=== PATIENT | male | born 1955 | race Caucasian/White ===

== ENCOUNTER 2018-03-30 06:31 | Day surgery (SDC) | payer OTHER ==
--- OUTSIDE RECORDS SUMMARY | 2018-03-30 06:33 | XMS REPORT ---
:1955 Author Organization eClinicalWorks Care Team Providers Name Role Phone Oliveira, [facility] Provider Role Unavailable Allergies, Adverse Reactions, Alerts Substance Reaction Event Type Benadryl Runny nose, sneezing Drug Allergy Problems Problem Type Condition Code Onset Dates Condition Status Problem Gout M10.9 Active Problem Hypertension I10 Active Problem Atrial fibrillation I48.91 Active Problem Proteinuria, unspecified type R80.9 Active Problem Controlled type 2 diabetes mellitus E11.9 Active without complication, without long-term current use of insulin Problem Abnormal laboratory test result R89.9 Active Problem Hyperlipidemia E78.5 Active Problem Allergic rhinitis J30.9 Active Problem Prostatic hypertrophy N40.0 Active Problem GERD without esophagitis K21.9 Active Assessment Hyperlipidemia E78.5 Active Assessment Gout M10.9 Active Assessment Prostatic hypertrophy N40.0 Active Assessment Atrial fibrillation I48.91 Active Assessment Controlled type 2 diabetes mellitus E11.9 Active without complication, without long-term current use of insulin Assessment Proteinuria, unspecified type R80.9 Active Assessment Hypertension I10 Active Problem Chronic back pain M54.9 Active Medications Medication Code Code Instructions Start End Status Dosage System Date Date Digoxin [facility] 57501873940 125 MCG Orally Active 1 tablet Once a day Flomax [facility] 35771561997 0.4 MG Orally Inactive 1 capsule Once a day Allopurinol [facility] 78306924796 300 MG Orally Active 1 tablet Once a day Fish Oil [facility] [address]-11 Active not defined Glimepiride [facility] 59095852043 2 MG Active TAKE 1 TABLET BY MOUTH EVERY DAY Allopurinol [facility] 04740133643 300 MG Orally Active 1 tablet Once a day Coreg [facility] 21951862912 6.25 MG Orally Active 1 tab twice daily Warfarin [facility] 75358069574 6 MG Orally Active 1 tablet Sodium Once a day Prostate [facility] [address]8559-45117 Active not defined Health CoQ-10 [facility] 00[address]-18628 Active not defined Carvedilol [facility] 62576160289 6.25 MG Active TAKE 1 TABLET BY MOUTH 2 TIMES A DAY Metformin HCl NDC 67250815548 500 MG Active TAKE 1 TABLET BY MOUTH 2 TIMES A DAY Glimepiride [facility] 69438451576 2 MG Orally Active 1 tablet Once a day with breakfast or the first main meal of the day Vitamin E [facility] 560[address]-38136 Active not defined Zestoretic [facility] 53050372793 20-12.5 MG Active 2 tablets Orally Once a day Lipitor [facility] 72999291409 20 MG Orally Active 1 tablet Once a day Metformin HCl [facility] 71980690442 500 MG Orally Active 1 tablet Twice a day with meals Results No Known Results Summary Purpose eClinicalWorks Submission
--- OUTSIDE RECORDS SUMMARY | 2018-03-30 06:33 | XMS REPORT ---
:1955 Author Organization eClinicalWorks Care Team Providers Name Role Phone Oliveira, [facility] Provider Role Unavailable Allergies, Adverse Reactions, Alerts [...] Start End Status Dosage System Date Date Glimepiride [facility] 52536665344 2 MG Orally Active 1 tablet Once a day with breakfast or the first main meal of the day Metformin HCl ND 32819619351 500 MG Orally Active 1 tablet Twice a day with meals Zestoretic [facility] 31773214503 20-12.5 MG Active 2 tablets Orally Once a day Metformin HCl [facility] 25104732214 500 MG Active TAKE 1 TABLET BY MOUTH 2 TIMES A DAY Glimepiride ND 71361676036 2 MG Active TAKE 1 TABLET BY MOUTH EVERY DAY Carvedilol [facility] 14648750958 6.25 MG Active TAKE 1 TABLET BY MOUTH 2 TIMES A DAY Digoxin [facility] 09274509628 125 MCG Orally Active 1 tablet Once a day Warfarin ND 73572691010 6 MG Orally Active 1 tablet Sodium Once a day CoQ-10 [facility] [address]-46255 Active not defined Prostate [facility] 56936-61895 Active not defined Health Lipitor [facility] 45301127953 20 MG Orally Active 1 tablet Once a day Allopurinol [facility] 50883547762 300 MG Orally Active 1 tablet Once a day Coreg [facility] 70020912159 6.25 MG Orally Active 1 tab twice daily Fish Oil [facility] [address]-44 Active not defined Flomax [facility] 34862430704 0.4 MG Orally Inactive 1 capsule Once a day Vitamin E [facility] 46950-[address] Active not defined Results No Known Results Summary Purpose eClinicalWorks Submission
[2018-03-30] MEDS ORDERED: Ringers Lactate 1,000 ML IV ONE (06:49)
[2018-03-30 06:56] LABS: Protime INR 1.23
[2018-03-30] MEDS: PHENYLEPHRINE 10% OPTH 5ML ONE ×3 (07:00→07:30)
[2018-03-30] MEDS: KETOROLAC OPTHALMIC 5 ML BOT ONE ×3 (07:00→07:30)
[2018-03-30] MEDS: TROPICAMIDE 1% OPTH 3 ML BOT ONE ×3 (07:00→07:30)
[2018-03-30] MEDS: CYCLOPENTOLATE 2% OPTH 2 ML ONE ×3 (07:00→07:30)
[2018-03-30] MEDS: MOXIFLOXACIN HCL 0.5% 3ML OPTH OPTH ONE ×3 (07:00→07:30)
[2018-03-30] MEDS ORDERED: TETRACAINE HCL 0.5% 2ML OPTH ONE (07:04)
[2018-03-30] MEDS ORDERED: BUPIVACAINE 0.25% PF 10 ML VIAL ONE (07:04)
[2018-03-30] MEDS ORDERED: LIDOCAINE 2% MPF 5 ML VIAL ONE ×2 (07:04→07:55)
[2018-03-30] MEDS ORDERED: CYCLOPENTOLATE 1% OPTH 2 ML ONE (07:04)
[2018-03-30] MEDS ORDERED: POVIDONE-IODINE 5% EYE DROPS ONE (07:45)
[2018-03-30] MEDS ORDERED: TOBRADEX 0.3-0.1% OPTH OINTMENT ONE (07:45)
[2018-03-30] MEDS ORDERED: EPINEPHRINE/PF 1 MG/ML AMP ONE (07:46)
[2018-03-30] MEDS ORDERED: BALANCED SALT IRRIG PLAIN 500 ML BTL IRR ONE (07:46)
[2018-03-30] MEDS ORDERED: DUOVISC 1 KIT OPTH ONE (07:47)
[2018-03-30] MEDS ORDERED: PROPOFOL 200 MG/20 ML VIAL IV ONE (07:55)
[2018-03-30] MEDS ORDERED: MIDAZOLAM HCL 2 MG/2 ML INJ ONE (07:55)
[2018-03-30] MEDS ORDERED: FENTANYL CITR 100 MCG/2 ML ONE (08:21)
[2018-03-30] MEDS ORDERED: ONDANSETRON 4 MG/2 ML VIAL ONE (08:41)
--- NOTE | 2018-03-30 11:31 | OP ---
Date of Procedure: 03/30/2018 Surgeon: Po Mejia MD Preoperative Diagnosis: Visually significant cataract, right eye. Postoperative Diagnosis: Visually significant cataract, right eye. Procedure Performed: Cataract extraction right eye with placement of intraocular lens, right eye. Description Of Procedure: After being properly identified in the preoperative holding area, the corine ent was taken back to the operating room where a time-out was performed. The patient was then preppe d and draped in normal sterile fashion. A lid speculum was placed and a paracentesis wound was made in both the 12 o'clock and 6 o'clock position and the anterior chamber filled with dispersive viscoel astic. Then grasping the globe with a pair of 0.12 forceps, the main phaco incision wound was made u sing a 2.75 mm keratome temporally. A continuous curvilinear capsulorrhexis was created using a cyst otome and completed with Utrata forceps. Hydrodissection, hydrodelineation were carried out using a Burton cannula resulting in free rotation of the lens nucleus. Thereafter, the lens was removed in a standard divide and conquer technique with CDE of approximately 6.42. Once all 4 quadrants had been removed, the phaco handpiece was exchanged for bimanual irrigation aspiration handpieces and the resi dual cortex was removed. The capsular bag was then filled with cohesive viscoelastic and an Emiliano mo del SN60WF, power 17.0 diopter, serial #[id number] was implanted into the capsular bag. The viscoel astic was then removed with a single coaxial I and A handpiece and oriented to the haptics, when in t he horizontal position. The wounds were hydrated and tested and found to be watertight. At this poi nt, the procedure concluded. There were no complications. Estimated blood loss less than 1 mL. No specimens were sent or drains placed. Implant is as above. The patient was taken to the postoperati ve holding area in stable condition having tolerated the procedure well. He is to follow up with myself Dr. Po Mejia at the [facility] [place] tomorrow morning. JPG/MODL Voice ID: [id number] Report ID: [id number]
== END 2018-03-30 10:04 | disposition home or self-care (01) ==
LOC: OR 06:31
PROVIDERS: ATTEND Ophthalmology
PROC: 08RJ3JZ Replacement of Right Lens with Synthetic Substitute, Percutaneous Approach (ICD-10-PCS; principal; 2018-03-30 07:30)
DX: H26.8 Other specified cataract (principal); E11.9 Type 2 diabetes mellitus without complications; I10 Essential (primary) hypertension; I48.2 Chronic atrial fibrillation
CPT/HCPCS: 36415; 82962; 85610; J0171; J2250; J2405; J2704; J3010

== ENCOUNTER 2018-07-28 06:32 | Day surgery (SDC) | payer OTHER ==
[2018-07-27 17:22] LABS: Absolute Lymphocytes (CBC) 1.7 K/uL (0.7-4.9); Absolute Monocytes 1.5 K/uL (0.1-1.3); Absolute Neutrophil 6.3 K/uL (1.8-8.0); Basophils % 0.5 % (0-1.3); Eosinophils % 0.3 % (0-4.4); Hematocrit 40.5 % (39.6-49.0); Lymphocytes % 17.8 % (15.3-44.8); MPV 8.3 fL (7.6-11.3); Monocytes % 15.7 % (3.3-12.3); RBC Red Blood Cell Count 4.52 M/uL (4.33-5.43)
[2018-07-27 17:26] LABS: Protime INR 1.94
--- NOTE | 2018-07-27 17:31 | RAD REPORT ---
EXAM DESCRIPTION: RAD - Chest Pa And Lat (2 Views) - 07/27/2018 5:19 pm CLINICAL HISTORY: Preop chest, pending carotid surgery or stenting COMPARISON: None. TECHNIQUE: PA and lateral views of the chest were obtained. FINDINGS: The lungs are clear. Heart size is normal and central vasculature is within normal limit s. No pleural effusion or pneumothorax seen. No acute bony finding noted. No aortic abnormality. IMPRESSION: No acute cardiopulmonary process.
[2018-07-27 17:36] LABS: Potassium 4.4 mmol/L (3.5-5.1)
[2018-07-27 18:08] LABS: Blood Morphology Comment NOT SEEN (NOT SEEN); Platelet Estimate ADEQ; Urine White Blood Cell Casts OK
--- OUTSIDE RECORDS SUMMARY | 2018-07-28 06:33 | XMS REPORT ---
:1955 Author Organization eClinicalWorks Care Team Providers Name Role Phone Oliveira, [facility] Provider Role Unavailable Allergies, Adverse Reactions, Alerts [...] Date Date Glimepiride [facility] 91692960966 2 MG Orally Active 1 tablet Once a day with breakfast or the first main meal of the day Metformin HCl ND 05776997480 500 MG Orally Active 1 tablet Twice a day with meals Zestoretic [facility] 92094319723 20-12.5 MG Active 2 tablets Orally Once a day Metformin HCl [facility] 01316824428 500 MG Active TAKE 1 TABLET BY MOUTH 2 TIMES A DAY Glimepiride ND 24096988075 2 MG Active TAKE 1 TABLET BY MOUTH EVERY DAY Carvedilol [facility] 10095586330 6.25 MG Active TAKE 1 TABLET BY MOUTH 2 TIMES A DAY Digoxin [facility] 74878800193 125 MCG Orally Active 1 tablet Once a day Warfarin [place] 32632986523 6 MG Orally Active 1 tablet Sodium Once a day CoQ-10 [facility] [address]23-23729 Active not defined Prostate [facility] 7[address]-81447 Active not defined Health Lipitor [facility] 92393656765 20 MG Orally Active 1 tablet Once a day Allopurinol [facility] 27981753351 300 MG Orally Active 1 tablet Once a day Coreg [facility] 00840324239 6.25 MG Orally Active 1 tab twice daily Fish Oil [facility] [address]-59 Active not defined Flomax [facility] 86598555865 0.4 MG Orally Inactive 1 capsule Once a day Vitamin E [facility] [address] Active not defined Results No Known Results Summary Purpose eClinicalWorks Submission
--- OUTSIDE RECORDS SUMMARY | 2018-07-28 06:34 | XMS REPORT ---
:1955 Author Organization eClinicalWorks Care Team Providers Name Role Phone Oliveira, [facility] Provider Role Unavailable Allergies, Adverse Reactions, [...] End Status Dosage System Date Date Digoxin [facility] 68803478962 125 MCG Orally Active 1 tablet Once a day Flomax [facility] 80483414786 0.4 MG Orally Inactive 1 capsule Once a day Allopurinol [facility] 85256044262 300 MG Orally Active 1 tablet Once a day Fish Oil [facility] [address]-76 Active not defined Glimepiride [facility] 01960265959 2 MG Active TAKE 1 TABLET BY MOUTH EVERY DAY Allopurinol [facility] 25551387262 300 MG Orally Active 1 tablet Once a day Coreg [facility] 53935476059 6.25 MG Orally Active 1 tab twice daily Warfarin [facility] 77070700745 6 MG Orally Active 1 tablet Sodium Once a day Prostate [facility] 8[address]-81124 Active not defined Health CoQ-10 [facility] 16464-27941 Active not defined Carvedilol [facility] 52472796552 6.25 MG Active TAKE 1 TABLET BY MOUTH 2 TIMES A DAY Metformin HCl NDC 98148400174 500 MG Active TAKE 1 TABLET BY MOUTH 2 TIMES A DAY Glimepiride [facility] 15069000665 2 MG Orally Active 1 tablet Once a day with breakfast or the first main meal of the day Vitamin E [facility] 24726-43832 Active not defined Zestoretic [facility] 12749301607 20-12.5 MG Active 2 tablets Orally Once a day Lipitor [facility] 79031523394 20 MG Orally Active 1 tablet Once a day Metformin HCl [facility] 86465134557 500 MG Orally Active 1 tablet Twice a day with meals Results No Known Results Summary Purpose eClinicalWorks Submission
--- OUTSIDE RECORDS SUMMARY | 2018-07-28 06:34 | XMS REPORT ---
:1955 Author Organization eClinicalWorks Care Team Providers Name Role Phone Oliveira, [facility] Provider Role Unavailable Allergies, Adverse Reactions, Alerts Substance Reaction Event Type Benadryl Runny nose, sneezing Drug Allergy Problems Problem Type Condition Code Onset Dates Condition Status Problem Gout M10.9 Active Problem Hypertension I10 Active Problem Atrial fibrillation I48.91 Active Problem Proteinuria, unspecified type R80.9 Active Assessment Renal insufficiency N28.9 Active Problem Controlled type 2 diabetes mellitus E11.9 Active without complication, without long-term current use of insulin Assessment GERD without esophagitis K21.9 Active Problem Abnormal laboratory test result R89.9 Active Problem Hyperlipidemia E78.5 Active Problem Allergic rhinitis J30.9 Active Problem Prostatic hypertrophy N40.0 Active Problem GERD without esophagitis K21.9 Active Assessment Hyperlipidemia E78.5 Active Assessment Gout M10.9 Active Assessment Elevated total protein R77.8 Active Assessment Prostatic hypertrophy N40.0 Active Assessment Atrial fibrillation I48.91 Active Assessment Controlled type 2 diabetes mellitus E11.9 Active without complication, without long-term current use of insulin Assessment Proteinuria, unspecified type R80.9 Active Assessment Hypertension I10 Active Problem Chronic back pain M54.9 Active Medications Medication Code Code Instructions Start End Status Dosage System Date Date Warfarin [facility] 86181949275 6 MG Orally Active 1 tablet Sodium Once a day Coreg [facility] 74210135758 6.25 MG Orally Active 1 tab twice daily Protonix [facility] 60512652415 40 MG Orally March Active 1 tablet Once a day 2018 Prostate [facility] [address]2223-47973 Active not defined Health Glimepiride [facility] 54820268360 2 MG Active TAKE 1 TABLET BY MOUTH EVERY DAY CoQ-10 [facility] 059[address]-60130 Active not defined Digoxin [facility] 23412135143 125 MCG Orally Active 1 tablet Once a day Metformin HCl [facility] 27717222558 500 MG Orally Active 1 tablet Twice a day with meals Vitamin E ND 0 Active not defined Allopurinol [facility] 91183806159 300 MG Orally Active 1 tablet Once a day Allopurinol [facility] 46832941253 300 MG Orally Active 1 tablet Once a day Lipitor [facility] 91626885274 20 MG Orally Active 1 tablet Once a day Fish Oil [facility] [address]-89 Active not defined Glimepiride [facility] 02301867670 2 MG Orally Active 1 tablet Once a day with breakfast or the first main meal of the day Metformin HCl [facility] 27388698505 500 MG Active TAKE 1 TABLET BY MOUTH 2 TIMES A DAY Zestoretic [facility] 48803947952 20-12.5 MG Active 2 tablets Orally Once a day Carvedilol [facility] 26431146699 6.25 MG Active TAKE 1 TABLET BY MOUTH 2 TIMES A DAY Results No Known Results Summary Purpose eClinicalWorks Submission
--- OUTSIDE RECORDS SUMMARY | 2018-07-28 06:34 | XMS REPORT ---
:1955 Author Organization eClinicalWorks Care Team Providers Name Role Phone Oliveira, [facility] Provider Role Unavailable Allergies, Adverse Reactions, Alerts [...] Start End Status Dosage System Date Date Carvedilol [facility] 23397500871 6.25 MG Active TAKE 1 TABLET BY MOUTH 2 TIMES A DAY Zestoretic [facility] 40316907873 20-12.5 MG Active 2 tablets Orally Once a day Fish Oil [facility] [address]-25 Active not defined Metformin HCl [facility] 58907455912 500 MG Orally Active 1 tablet Twice a day with meals Metformin HCl [facility] 80781524888 500 MG Active TAKE 1 TABLET BY MOUTH 2 TIMES A DAY CoQ-10 [facility] 82708-[address]22 Active not defined Warfarin [facility] 14632424624 6 MG Orally Active 1 tablet Sodium Once a day Digoxin [facility] 22689528520 125 MCG Orally Active 1 tablet Once a day Allopurinol [facility] 22720367209 300 MG Orally Active 1 tablet Once a day Lipitor [facility] 99064703315 20 MG Orally Active 1 tablet Once a day Prostate [facility] 29246-19038 Active not defined Health Glimepiride [facility] 67909499537 2 MG Orally Active 1 tablet Once a day with breakfast or the first main meal of the day Vitamin E [facility] 43[address]-53110 Active not defined Coreg [facility] 15409299353 6.25 MG Orally Active 1 tab twice daily Allopurinol [facility] 99270547466 300 MG Orally Active 1 tablet Once a day Glimepiride [facility] 04614417109 2 MG Active TAKE 1 TABLET BY MOUTH EVERY DAY Results No Known Results Summary Purpose eClinicalWorks Submission
[2018-07-28] MEDS ORDERED: LIDOCAINE 1% MPF 30 ML VIAL ONE (06:52)
[2018-07-28] MEDS ORDERED: HEPA 1000U/500MLS 2,000 UNIT/1,000 ML BAG IV ONE (06:52)
[2018-07-28] MEDS ORDERED: NA CHLORIDE 0.9% 0 ML ONE (07:04)
[2018-07-28] MEDS ORDERED: HEPARIN 5000 UNIT/ML 1 ML VIAL ONE (07:36)
[2018-07-28] MEDS ORDERED: ATROPINE SULF 1 MG/10 ML SYR IV ONE (07:37)
[2018-07-28] MEDS ORDERED: NICARDIPINE HCL 25 MG/10 ML IV ONE (07:37)
[2018-07-28] MEDS ORDERED: NA CHLORIDE 0.9% 50 ML ONE (07:37)
[2018-07-28] MEDS ORDERED: NITROGLYCERIN/D5W 25 MG/250 ML BTL IV ONE (07:37)
[2018-07-28] MEDS ORDERED: NITROGLYCERIN 100 MCG/ML SYR (for cath lab use only) IV ONE (07:37)
[2018-07-28] MEDS ORDERED: MIDAZOLAM HCL 2 MG/2 ML INJ ONE (07:37)
[2018-07-28] MEDS ORDERED: FENTANYL CITR 100 MCG/2 ML ONE (07:37)
[2018-07-28] MEDS ORDERED: NA CHLORIDE 0.9% 500 ML ONE (08:23)
[2018-07-28] MEDS ORDERED: PRASUGREL (EFFIENT) 10 MG TAB ONE (08:27)
[2018-07-28] MEDS ORDERED: ASPIRIN 81 MG CHEWABLE TABLET ONE (08:27)
[2018-07-28] MEDS ORDERED: GLUCAGON 1 MG/VIAL IM PRN (08:37)
[2018-07-28] MEDS ORDERED: D50W 25 GM/50 ML SYRINGE IV PRN (08:37)
[2018-07-28] MEDS: DIGOXIN 0.125 MG TABLET PO SCH (09:00)
[2018-07-28] MEDS: CLOPIDOGREL 75 MG TABLET PO SCH (09:00)
[2018-07-28] MEDS: LISINOPRIL 20 MG TAB PO SCH (09:00)
[2018-07-28] MEDS: CARVEDILOL 6.25 MG TAB PO SCH ×2 (09:00→21:28)
[2018-07-28] MEDS: hydroCHLOROthiazide 12.5 MG CAP PO SCH (09:00)
[2018-07-28] MEDS: INSULIN -REGULAR HUMAN 50 UNIT/0.5 ML ML SQ SCH ×3 (13:43→21:00)
[2018-07-28] MEDS ORDERED: RIVAROXABAN 20 MG TABLET PO SCH (17:00)
--- NOTE | 2018-07-28 19:11 | OP ---
Surgeon: Romero Peñaloza MD Procedures: Left heart catheterization, coronary left ventricular pressures, no LV-gram, and percuta neous coronary intervention of the proximal left anterior descending, ostial left anterior descending , 99% stenosis, successful. Findings: No LV-gram was done. LV pressures were normal. He was in atrial fibrillation that is chr onic. His right coronary artery and circumflex had mild plaquing, no significant stenosis. The osti al LAD had a 99% stenosis. The distal LAD was free of stenosis, but there was RADHIKA grade 1 flow thro ughout the LAD, and after stenting, there was 0% stenosis and RADHIKA grade 3 flow in the LAD and its br anches. Procedure In Detail: The patient had an abnormal Cardiolite stress test. He was brought to the [facility] lab technician in a fasting state, sedated with Versed and fentanyl, prepared and draped in usual steri le fashion. Right radial artery was identified. Tissues around the artery were anesthetized with 1% lidocaine. The artery was entered using a 21-gauge needle, cannulated with a 0.021 inch diameter gu idewire, and then a 6-British Terumo radial sheath was placed. Sheath was flushed and a radial cockta il was given consisting of heparin, nitroglycerin, and nicardipine. We guided a TIG catheter into th e ascending aorta using a short radius J-tip Glidewire and fluoroscopy. We were able to angiogram marietta th arteries and crossed the valve and measure pressures with a TIG catheter. After the decision was made to do an intervention, we placed an exchange length J-wire, removed the catheter, gave Angiomax, demonstrated a therapeutic activated clotting time. We placed an XBLAD 3.5 with side holes guide ca theter into the left main ostium and were able to cross the lesion with a Lenore wire. We then used a Synergy 2.75 x 16 Monorail stent across the lesion and carefully placed it. There was almost no le ft main. The left main is only a matter of 2-3 mm long. We dilated the stent up to 14 atmospheres a nd demonstrated an excellent angiographic result with normal blood flow. There was no evidence of di stal embolization or the "no reflow" phenomenon. So, catheters and wires were removed. Orthogonal v iews were taken. The guide catheter was removed. The sheath was flushed, removed, and the arterioto my closed with a TR band. Angiomax was turned off. He will be loaded with Effient. He will receive larger doses of Lipitor. For tonight, he will be on Xarelto, eventually we will switch him over to Coumadin, but he will be on basically a Xarelto bridge. GERALDINE/CEM Voice ID: [id number] Report ID: [id number]
[2018-07-28 19:31] LABS: Urine Appearance CLEAR; Urine Bilirubin NEGATIVE (NEG); Urine Blood NEGATIVE (NEG); Urine Color YELLOW; Urine Glucose NEGATIVE (NEG); Urine Microscopic Reflex NO UMIC; Urine Protein NEGATIVE (NEG); Urine Specific Gravity 1.015 (1.005-1.030); Urine pH 5.5 (5.0-7.0)
[2018-07-28] MEDS ORDERED: ATORVASTATIN 80 MG TAB PO SCH (21:00)
[2018-07-29 05:07] LABS: Hematocrit 37.1 % (39.6-49.0); MPV 8.4 fL (7.6-11.3); RBC Red Blood Cell Count 4.18 M/uL (4.33-5.43)
[2018-07-29 05:21] LABS: Potassium 4.1 mmol/L (3.5-5.1)
[2018-07-29] MEDS: INSULIN -REGULAR HUMAN 50 UNIT/0.5 ML ML SQ SCH (07:30)
[2018-07-29] MEDS ORDERED: GLIMEPIRIDE 2 MG TABLET PO SCH (08:00)
[2018-07-29] MEDS: LISINOPRIL 20 MG TAB PO SCH (08:37)
[2018-07-29] MEDS: DIGOXIN 0.125 MG TABLET PO SCH (08:37)
[2018-07-29] MEDS: CLOPIDOGREL 75 MG TABLET PO SCH (08:37)
[2018-07-29] MEDS: hydroCHLOROthiazide 12.5 MG CAP PO SCH (08:38)
[2018-07-29] MEDS: CARVEDILOL 6.25 MG TAB PO SCH (08:38)
--- NOTE | 2018-07-29 13:20 | DS ---
Date of Discharge: 07/29/2018 Discharge Diagnoses: 1.Unstable angina with 99% ostial proximal left anterior descending stenosis, successfully stented. 2.Chronic atrial fibrillation. Medications On Discharge: Plavix 75 mg per day, Xarelto 20 mg daily at supper time for 3 days, Couma din 2.5 mg daily at 5 p.m., and we will check an INR about a week later. He is not to be on any aspi rin. His Lipitor dose is now 80. He will continue to take metformin, but he will not take that unti l July 31. He will continue to take lisinopril 20 mg, hydrochlorothiazide 12.5 mg, Coreg 6.5 b .i.d. and digoxin 0.125 mg daily. Procedures In The Hospital: Left heart catheterization, coronary angiography, percutaneous coronary intervention of an ostial LAD lesion with a Synergy 2.75 x 16 stent. Excellent angiographic result. Hospital Course: The patient did well with the procedure. No complications. His right radial punct ure site looks good. The TR band and bandage were removed. No bleeding. He will call my office Tue to schedule a followup appointment in 2 weeks. He understands our recommendations for diet and a ctivities. GERALDINE/CEM Voice ID: [id number] Report ID: [id number]
== END 2018-07-29 11:15 | disposition home or self-care (01) ==
LOC: CCL 06:32 → 2ND 08:30 → CCL 07-29 11:15
PROVIDERS: ATTEND Internal Medicine
DX: I25.110 Atherosclerotic heart disease of native coronary artery with unstable angina pectoris (principal); I48.2 Chronic atrial fibrillation; E11.9 Type 2 diabetes mellitus without complications; E78.2 Mixed hyperlipidemia; I10 Essential (primary) hypertension; M10.9 Gout, unspecified; F17.210 Nicotine dependence, cigarettes, uncomplicated; F17.220 Nicotine dependence, chewing tobacco, uncomplicated; Z79.84 Long term (current) use of oral hypoglycemic drugs; Z79.01 Long term (current) use of anticoagulants; Z79.899 Other long term (current) drug therapy
CPT/HCPCS: 36415; 71046; 80048; 81003; 82962; 85025; 85027; 85610; 85730; 92928; 93458; C1725; C1893; J0583; J1644; J2250; J3010

== ENCOUNTER 2020-10-17 06:34 | Day surgery (SDC) | payer OTHER ==
[2020-10-15 16:47] LABS: Protime INR 2.46
[2020-10-15 16:50] LABS: Absolute Lymphocytes (CBC) 2.4 K/uL (0.7-4.9); Basophils % 0.4 % (0-1.3); Hematocrit 33.5 % (39.6-49.0); Lymphocytes % 27.7 % (15.3-44.8); MPV 8.1 fL (7.6-11.3); RBC Red Blood Cell Count 3.75 M/uL (4.33-5.43)
--- NOTE | 2020-10-15 17:02 | RAD REPORT ---
EXAM DESCRIPTION: RAD - Chest Pa And Lat (2 Views) - 10/15/2020 4:43 pm CLINICAL HISTORY: preop COMPARISON: 07/27/2018 FINDINGS: No evidence of edema or pneumonia. Mild cardiomegaly.No acute osseous abnormality. No sign ificant pleural effusions or pneumothorax. IMPRESSION: No acute cardiopulmonary disease.
[2020-10-15 17:06] LABS: Potassium 3.9 mmol/L (3.5-5.1)
[2020-10-15 19:04] LABS: Blood Morphology Comment NOT SEEN (NOT SEEN); Platelet Estimate ADEQ; White Blood Cell Scan OK (OK)
--- NOTE | 2020-10-16 11:01 | EKG ---
Test Date: 2020-10-15 Test Time: 15:21:36 [employer] Integration Architect: MARY BETH MEASUREMENT RESULTS: Intervals: Rate: 72 [place]: QRSD: 146 QT: 392 QTc: 429 [place]: P: [place]: QRS: -66 T: 87 INTERPRETIVE STATEMENTS: Atrial fibrillation Right bundle branch block Left anterior fascicular block Bifascicular block Septal infarct, age undetermined Abnormal ECG No previous ECG available for comparison Electronically Signed On 10-16-20 10:58:49 CDT by Ryan Cabrera
[2020-10-17 07:05] VITALS: TEMP 97
[2020-10-17] MEDS ORDERED: HEPA 1000U/500MLS 1,000 UNIT/500 ML BAG IV ONE (07:06)
[2020-10-17] MEDS ORDERED: LIDOCAINE 1% 20 ML MDV ONE (07:07)
[2020-10-17] MEDS ORDERED: NA CHLORIDE 0.9% 500 ML ONE (07:09)
[2020-10-17] MEDS ORDERED: FENTANYL CITR 100 MCG/2 ML ONE (07:35)
[2020-10-17] MEDS ORDERED: MIDAZOLAM HCL 2 MG/2 ML INJ ONE ×2 (07:35→07:52)
[2020-10-17] MEDS ORDERED: ATROPINE SULF 1 MG/10 ML SYR IV ONE (07:41)
--- NOTE | 2020-10-17 09:56 | OP ---
Date of Procedure: 10/17/2020 Surgeon: Ryan Cabrera MD Wire Setter: Mr. Sameer Kelley. Patient admitted to my service on 10/17/2020 for selective bilateral carotid angiogram. Indication: Abnormal carotid Doppler with known cerebrovascular disease. Description Of Procedure: Patient was brought to the laboratory analyst, prepped and draped in routine sterile fashion. Given Versed and fentanyl for sedation. A 6-Burkin[place] sheath introduced in the right common femoral artery successfully. Angiography there was normal. StarClose was used to close the case. T he patient had been on Coumadin that has been held for about 4-5 days. He also takes a baby aspirin for chronic atrial fibrillation. A JR4 catheter was introduced and was selected initially in the com mon carotid artery on the left side. Angiography there showed an 80% stenosis of the left common car otid, [id number] stenosis, 30% to 40% in the left ICA. The left ECA was normal. The right com mon carotid artery was selectively cannulated with a JR4 catheter as well and angiography there was n ormal. There was no complications. Blood Loss: 5 mL. Postoperative Diagnosis: Severe left common carotid artery stenosis on the left. The patient will h ave a CD with him. I will make arrangements for outpatient left carotid endarterectomy or left carot id subclavian bypass. I will leave that up to the surgeons. Anesthesia: Total conscious sedation was 45 minutes. Disposition: Patient will go home today after 2 hours of bedrest. CARLA/CEM Voice ID: [id number] Report ID: [id number]
[2020-10-17 10:48] VITALS: BP 131/92; O2SAT 98
== END 2020-10-17 10:15 | disposition home or self-care (01) ==
LOC: CCL 06:34
DX: I65.22 Occlusion and stenosis of left carotid artery (principal); I25.10 Atherosclerotic heart disease of native coronary artery without angina pectoris; I48.21 Permanent atrial fibrillation; E11.9 Type 2 diabetes mellitus without complications; I10 Essential (primary) hypertension; E78.2 Mixed hyperlipidemia; M10.9 Gout, unspecified; F17.210 Nicotine dependence, cigarettes, uncomplicated; Z95.5 Presence of coronary angioplasty implant and graft; Z82.49 Family history of ischemic heart disease and other diseases of the circulatory system
CPT/HCPCS: 93005; 85025; 80048; 36415; 85610; 82947; 85730; 71046; 36222; C1893; C1760; J2250 ×2; J3010; J7040; J1644

== ENCOUNTER 2022-01-11 07:49 | Emergency (ER) | payer MEDICARE, OTHER ==
--- OUTSIDE RECORDS SUMMARY | 2022-01-11 07:53 | XMS REPORT | Continuity of Care Document ---
:1955 Author Organization [facility] Address [address] [place] [address] Care Team Providers Name Role Phone Asked, No Pcp Primary Care Physician Unavailable Rafael Oliveira Attending Clinician Unavailable KENNY MINOR Attending Clinician Unavailable CB SALCEDO Attending Clinician Unavailable KENNY MINOR Admitting Clinician Unavailable Payers Payer Name Policy Type Policy Number Effective Date Expiration Date S luli [facility] [id number] 2021 (MEDICARE 00:00:00 REPLACEMENT HMO) ENTRUST CLAIMS [id number] 2014 Common TEAM 00:00:00 [facility] GALAXY PPO [id number] 2014 00:00:00 90 DEGREE [id number] 2014 BENEFITS/ENTRUST 00:00:00 Problems Condition Condition Condition Status Onset Resolution Last Treating Co mments Source Name Details Category Date Date Treatment Clinician Date Atrial Atrial Problem Active Common fibrillati fibrillati Sp miguel on [facility] Gout Gout Problem Active Common [facility] Allergic Allergic Problem Active Commo n rhinitis rhinitis [facility] Hypertensi Hypertensi Problem Active C ommon on on [facility] Prostatic Prostatic Problem Active Com mon hypertroph hypertroph Sp miguel y y [facility] Chronic Chronic Problem Active Common back pain back pain Spir it - [facility] [id number] Controlled Problem Active Co mmon type 2 Spirit diabetes - [facility] mellitus [facility] complicati Medica l on, Center without long-term current use of insulin [id number] Noncomplia Problem Active Co mmon nce with Spirit dietary - [facility] restrictio [facility] Gastroesop GERD Problem Active Commo n hageal without Spirit reflux esophagiti - [facility] disease s [facility] [id number] CKD Problem Active Common (chronic Spirit kidney - [facility] disease) stage [facility] GFR 15-29 Medical ml/min Center Hyperlipid Hyperlipid Problem Active C ommon emia emia [facility] [id number] Proteinuri Problem Active Com mon a, Spirit unspecifie - [facility] d type [facility] Laboratory Abnormal Problem Active Com mon test laboratory Spirit result test - [facility] abnormal result [facility] [id number] Stented Problem Active Commo n coronary [facility] artery - [facility] [id number] Coronary Problem Active Com mon 107 artery Spirit disease - [facility] involving [facility] coronary Medical artery of Center chitina heart, angina presence unspecifie d [id number] Carotid Problem Active Comm on stenosis, Spirit left - [facility] [id number] 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 [facility] count [facility] Allergies, Adverse Reactions, Alerts Allergy Allergy Status Severity Reaction(s) Onset Inactive Treating Comm ents Source Name Type Date Date Clinician NO KNOWN Allergy Active [facility] diphenhy diphenhy Active Runny nose, C ommon dramine dramine sneezing [facility] Social History Social Habit Start Date Stop Date Quantity Comments Source History of Tobacco Common Spirit - [facility] Use [facility] Sex Assigned At [birth year] [facility] 00:00:00 00:00:00 Smoking Status Start Date Stop Date Source Tobacco smoking consumption [facility] unknown Never Smoker Common [facility] Medications Ordered Filled Start Stop Current Ordering Indication Dosage Frequency Signature Comments Components Source Medication Medication Date Date Medication? Clinician (SIG) Name Name Protonix Protonix 2019-0 Yes Rafael 1 tablet Common 3-21 Oliveira Spirit 00:00: - [facility] Digoxin Digoxin Yes Rafael 1 tablet Com mon Oliveira [facility] CoQ-10 CoQ-10 Yes Rafael not Common Oliveira defined [facility] Prostate Prostate Yes Rafael not Commo n [facility] Oliveira defined [facility] Allopurinol Allopurinol Yes Rafael 1 tablet Common Oliveira [facility] Coreg Coreg Yes Rafael 1 tab Common Oliveira [facility] Fish Oil Fish Oil Yes Rafael not Commo n Oliveira defined [facility] Zestoretic Zestoretic Yes Rafael 2 tablets Common Oliveira [facility] Metformin Metformin Yes Rafael 1 tablet Common HCl HCl Oliveira with meals [facility] Lipitor Lipitor Yes Rafael 1 tablet Com mon Oliveira [facility] Clopidogrel Clopidogrel Yes Rafael TAKE 1 Common Bisulfate Bisulfate Oliveira TABLET BY Spirit MOUTH - [facility] EVERY DAY [facility] Warfarin Warfarin Yes Rafael 1 tablet C ommon Sodium Sodium Oliveira [facility] Vitamin E Vitamin E Yes Rafael not Com mon Oliveira defined [facility] Fish Oil Fish Oil Yes Rafael 1 capsule Common [facility] Carvedilol Carvedilol Yes Rafael 1 tablet Common Oliveira with food [facility] Metformin Metformin Yes Rafael TAKE 1 C ommon HCl HCl Oliveira TABLET BY Spirit MOUTH 2 - [facility] TIMES A [facility] Digoxin 125 Digoxin 125 No 1{table QD Digoxin MCG MCG t} 125 MCG metFORMIN metFORMIN No metFORMIN HCl 500 MG HCl 500 MG HCl 500 MG CoQ-10 CoQ-10 No CoQ-10 Tamsulosin Tamsulosin No 1{capsu QD Tamsulosin HCl 0.4 MG HCl 0.4 MG le} HCl 0.4 MG Zestoretic Zestoretic No 2{table QD Zestoretic 20-12.5 MG 20-12.5 MG ts} 20-12.5 MG Carvedilol Carvedilol No 1{table BID Carvedilol 6.25 MG 6.25 MG t_with_ 6.25 MG food} Vitamin E Vitamin E No Vitamin E Allopurinol Allopurinol No 1{table QD Allopurino 300 MG 300 MG t} l 300 MG Fish Oil Fish Oil No Fish Oil Lipitor 80 Lipitor 80 No 1{table QD Lipitor 80 MG MG t} MG Coreg 6.25 Coreg 6.25 No Coreg 6.25 MG MG MG Warfarin Warfarin No 1{table QD Warfarin Sodium 4 MG Sodium 4 MG t} Sodium 4 MG Fish Oil Fish Oil No 1{capsu QD Fish Oil 1000 MG 1000 MG le} 1000 MG Protonix 40 Protonix 40 No 1{table QD Protonix MG MG t} 40 MG Prostate Prostate No [facility] Carvedilol Carvedilol No 1{table BID Carvedilol 6.25 MG 6.25 MG t_with_ 6.25 MG food} Zestoretic Zestoretic No 2{table QD Zestoretic 20-12.5 MG 20-12.5 MG ts} 20-12.5 MG Fish Oil Fish Oil No Fish Oil Protonix 40 Protonix 40 No 1{table QD Protonix MG MG t} 40 MG Lipitor 80 Lipitor 80 No 1{table QD Lipitor 80 MG MG t} MG Tamsulosin Tamsulosin No 1{capsu QD Tamsulosin HCl 0.4 MG HCl 0.4 MG le} HCl 0.4 MG Coreg 6.25 Coreg 6.25 No Coreg 6.25 MG MG MG CoQ-10 CoQ-10 No CoQ-10 Prostate Prostate No [facility] Vitamin E Vitamin E No Vitamin E Allopurinol Allopurinol No 1{table QD Allopurino 300 MG 300 MG t} l 300 MG Warfarin Warfarin No 1{table QD Warfarin Sodium 4 MG Sodium 4 MG t} Sodium 4 MG Fish Oil Fish Oil No 1{capsu QD Fish Oil 1000 MG 1000 MG le} 1000 MG Digoxin 125 Digoxin 125 No 1{table QD Digoxin MCG MCG t} 125 MCG Vital Signs Vital Name Observation Time Observation Value Comments Source height 2021-09-22 10:50:00 71 [in_i] [facility] weight 2021-09-22 10:50:00 188 [lb_av] [facility] temperature 2021-09-22 10:50:00 98 [degF] [facility] bmi 2021-09-22 10:50:00 26.22 kg/m2 Common S pirit - [facility] blood pressure 2021-09-22 10:50:00 128 mm[Hg] Common Spirit - systolic [facility] blood pressure 2021-09-22 10:50:00 78 mm[Hg] Common Spirit - diastolic [facility] WEIGHT 2021-04-03 07:59:00 77.2 kg HEIGHT 2021-04-02 05:48:00 180.3 cm WEIGHT 2021-04-02 05:48:00 76.386 kg WEIGHT 2021-04-03 07:59:00 77.2 kg HEIGHT 2021-04-02 05:48:00 180.3 cm WEIGHT 2021-04-02 05:48:00 76.386 kg HEIGHT 2021-01-28 10:48:00 177.8 cm WEIGHT 2021-01-28 10:48:00 82.781 kg Procedures This patient has no known procedures. Plan of Care Planned Activity Planned Date Details Comments Source Future Scheduled 2022-01-10 HEPATITIS B VACCINES Met [facility] Test 12:40:20 (1 of 3 - 3-dose series) [code = HEPATITIS B VACCINES (1 of 3 - 3-dose series)] Future Scheduled 2022-01-10 COVID-19 VACCINE (#1) [facility] Test 12:40:20 [code = COVID-19 VACCINE (#1)] Future Scheduled 2022-01-10 COLONOSCOPY SCREENING [facility] Test 12:40:20 [code = COLONOSCOPY SCREENING] Future Scheduled 2022-01-10 SHINGLES VACCINES (1 Met [facility] Test 12:40:20 of 2) [code = SHINGLES VACCINES (1 of 2)] Future Scheduled 2022-01-10 INFLUENZA VACCINE [facility] 12:40:20 [code = INFLUENZA VACCINE] Future Scheduled 2022-01-10 65+ [facility]OCOCCAL [facility] Test 12:40:20 VACCINE (1 - PCV) [code = 65+ PNEUMOCOCCAL VACCINE (1 - PCV)] Encounters Start End Encounter Admission Attending Care Care Encounter Source Date/Time Date/Time Type Type Clinicians Facility Department ID 2021-10-06 [facility] [id number] Common 11:27:00 [facility] Spirit [facility] 2021-05-04 Outpatient Oliveira, [facility] [id number] Common 09:35:00 Rafael [facility] 2021-05-01 Outpatient Oliveira, STLML[facility] [id number] Common 09:39:01 Rafael [facility] 2021-04-22 Outpatient Oliveira, STL[facility] [id number] Common 14:10:53 Rafael 78301 [facility] 2021-04-22 Outpatient Oliveira, [facility] [id number] Common 14:02:18 Rafael 06110 [facility] 2021-04-22 Outpatient Oliveira, STLMLC [facility] [id number] Common 12:32:38 Rafael 15177 [facility] 2021-04-22 Outpatient Oliveira, STLMLC ST[facility] [id number] Common 12:31:59 Rafael [id number] [facility] 2021-04-22 Outpatient Oliveira, STLMLC [facility] [id number] Common 12:22:20 Rafael 59894 [facility] 2021-04-22 Outpatient Oliveira, STLMLC [facility] [id number] Common 12:08:31 Rafael 16653 [facility] 2021-04-22 Outpatient Oliveira, [facility] [id number] Common 11:42:13 Rafael [id number] [facility] 2021-04-22 Outpatient Oliveira, STLMLC [facility] [id number] Common 11:16:53 Rafael 05564 [facility] 2021-04-22 Outpatient Oliveira, STLMLC [facility] [id number] Common 11:05:16 Rafael [id number] [facility] 2021-04-22 Outpatient Oliveira, STLMLC ST[facility] [id number] Common 11:04:46 Rafael 15725 [facility] 2021-10-21 2021-10-21 Outpatient DMG [facility] [id number] [facility] 00:00:00 00:00:00 [id number] [facility] 2021-09-22 2021-09-22 OFFICE STLMLC ST[facility]C [id number] Co mmon 00:00:00 00:00:00 VISIT [facility] LEVEL 4 [facility] 2021-04-15 2021-04-15 Outpatient RADHA GUEVARA [facility] [id number] SLE 00:00:00 00:00:00 KENNY 2021-04-02 2021-04-03 [id number] [facility] 05:30:00 13:46:00 2021-04-02 2021-04-02 Outpatient [facility] [id number] [facility] 05:30:00 23:59:00 Marjan 2021-01-28 2021-01-28 Outpatient RADHA GUEVARA [facility] [id number] SLE 10:44:29 10:44:29 KENNY 2021-01-13 2021-01-13 (TEL) STLMLC ST[facility]C [id number] Co mmon 00:00:00 00:00:00 [facility] 2021-01-12 2021-01-12 Outpatient RADHA GUEVARA [facility] [id number] SLE 00:00:00 00:00:00 KENNY 2021-01-05 2021-01-05 Outpatient RADHA GUEVARA [facility] [id number] SLE 00:00:00 00:00:00 KENNY 2020-11-10 2020-11-10 Outpatient RADHA GUEVARA [facility] [id number] [facility]H 00:00:00 00:00:00 KENNY 2020-04-29 2020-04-29 Outpatient STLMLC ST[facility] [id number] Common 00:00:00 00:00:00 [facility] 2020-04-21 2020-04-21 Outpatient STLMLC ST[facility] [id number] Common 00:00:00 00:00:00 [facility] 2020-04-15 2020-04-15 Outpatient STLMLC ST[facility] [id number] Common 00:00:00 00:00:00 [facility] 2019-11-26 2019-11-26 [id number] Common 16:40:00 16:40:[address] [place] [facility] 2019-08-23 2019-08-23 [facility] [id number] Common 16:00:00 16:00:[address] [place] [address] [facility] 2019-05-23 2019-05-23 [facility] [id number] Common 13:13:00 13:13:00 [address] [place] [address] [facility] 2019-05-01 2019-05-01 [facility] [id number] Common 16:45:00 16:45:00 [address] [place] [address] [facility] 2019-01-30 2019-01-30 [facility] [id number] Common 16:30:00 16:30:00 [place] [address] [facility] 2018-09-19 2018-09-19 [facility] [id number] Common 16:30:00 16:30:00 [place] [address] [facility] 2018-06-15 2018-06-15 [facility] [id number] Common 16:00:00 16:00:00 [place] [address] [facility] 2018-03-16 2018-03-16 [facility] [id number] Common 15:30:00 15:30:00 [place] [address] [facility] 2017-12-22 2017-12-22 [facility] [id number] Common 15:45:00 15:45:00 [address] [place] [address] [facility] 2017-09-21 2017-09-21 [facility] [id number] Common 16:00:00 16:00:00 [address] [place] [place] [address] [facility] Results Test Description Test Time Test Comments Results Result Sour e Comments TISSUE EXAM 2021-04-06 Surgical Pathology 13:10:34 Report Case: [id number] Authorizing Provider: Kenny Minor, Collected: 04/02/2021 08:55 AM Ordering Location: [facility] NOEMY [facility] Received: 04/02/2021 09:23 AM PERIOPERATIVE SERVICES Pathologist: Cole Nguyễn MD Specimen: Plaque, LEFT CAROTID ARTERY PLAQUE ARTERY, LEFT CAROTID, ENDARTERECTOMY:CALCIFI C ATHEROSCLEROTIC PLAQUE Signing Pathologist Direct Phone Line: [phone] ally signed by Cole Nguyễn MD on 04/06/2021 at 1:10 [id number]; [id number] stenosis A. PlaqueA. Received fresh, labeled the patient's name, assessment number, and "left carotid artery plaque" and consists of a morgan-yellow, firm, tubular structure (5.1 x 0.8 x 0.7 cm). The specimen is serially sectioned to reveal morgan-yellow cut surfaces minimal calcification. Blast Furnace Blower sections are submitted in A1 for decal.Brad Chaparro StudentPerformed POCT-GLUCOSE METER 2021-04-03 11:29:45 Test Item Value Reference Range Interpretation Comme nts POC-GLUCOSE METER (Dine perfect) 133 mg/dL 70-110 H : TESTED AT [facility] [address] [facility] (test code = 1538) [facility], [address]: Rental Car Deliverer/Techni zaynab ID = [id number] for WALLY GENAO HEMOGLOBIN [id number] 09:12:38 Test Item Value Reference Range Interpretation Comments HEMOGLOBIN A1C 5.6 % See_Comment [Automated m essage] ELECTROPHORESIS (Dine perfect) The system which (test code = 3811) generated this result transmitted ref erence range: <=5.6%. The reference range was not used to int erpret this result as normal/abnormal . "The A1c is measured using a NGSP-certified method. HbA1c value equal to or greater than 6.5% as thediagnosis cutoff for diabetes. An HbA1c value of 5.7- 6.4% indicates increased risk for diabetes (prediabetes)."Rental Car Deliverer ID - ADMPOCT- GLUCOSE [id number] 07:35:52 Test Item Value Reference Range Interpretation Comments POC-GLUCOSE METER 120 mg/dL 70-110 H : TESTED A T [facility] [address] (Dine perfect) (test code = IRASEMA [place]UR[place] MD, 1538) [address]: Rental Car Deliverer/Techni zaynab ID = [id number] for JACOB MOORE BASIC METABOLIC [id number] 05:47:32 Test Item Value Reference Range Interpretation Comments SODIUM (BEAKER) 134 meq/L 136-145 L (test code = 381) POTASSIUM (BEAKER) 4.0 meq/L 3.5-5.1 (test code = 379) CHLORIDE (BEAKER) 101 meq/L 98-107 (test code = 382) CO2 (BEAKER) (test 26 meq/L 22-29 code = 355) BLOOD UREA NITROGEN 19 mg/dL 7-21 (BEAKER) (test code = 354) CREATININE (BEAKER) 1.28 mg/dL 0.57-1.25 H (test code = 358) GLUCOSE RANDOM 129 mg/dL 70-105 H (BEAKER) (test code = 652) CALCIUM (BEAKER) 8.8 mg/dL 8.4-10.2 (test code = 697) EGFR (BEAKER) (test 57 mL/min/1.73 ESTIMA TIMBO GFR IS code = 1092) sq m NOT ACCURATE CREATININE CLEARANCE IN PREDICTING GLOMERULAR FILTRATION RATE . ESTIMATED GFR I S NOT APPLICABLE FOR DIALYSIS PATIEN TS. Rental Car Deliverer ID - PERLATAMEKA [id number] 05:47:32 Test Item Value Reference Range Interpretation Comments MAGNESIUM (BEAKER) (test code = 2.1 mg/dL 1.6-2.6 627) Rental Car Deliverer ID - MARY LCBC (HEMOGRAM ONLY)2021-04-03 05:25:19 Test Item Value Reference Range Interpretation Comments WHITE BLOOD CELL COUNT (BEAKER) 9.3 K/ L 3.5-10.5 (test code = 775) RED BLOOD CELL COUNT (BEAKER) 3.27 M/ L 4.63-6.08 L (test code = 761) HEMOGLOBIN (BEAKER) (test code = 9.4 GM/DL 13.7-17.5 L 410) HEMATOCRIT (BEAKER) (test code = 29.6 % 40.1-51.0 L 411) MEAN CORPUSCULAR VOLUME (BEAKER) 90.5 fL 79.0-92.2 (test code = 753) MEAN CORPUSCULAR HEMOGLOBIN 28.7 pg 25.7-32.2 (BEAKER) (test code = 751) MEAN CORPUSCULAR HEMOGLOBIN CONC 31.8 GM/DL 32.3-36.5 L (BEAKER) (test code = 752) RED CELL DISTRIBUTION WIDTH 14.8 % 11.6-14.4 H (BEAKER) (test code = 412) PLATELET COUNT (BEAKER) (test 361 K/CU MM 150-450 code = 756) MEAN PLATELET VOLUME (BEAKER) 9.8 fL 9.4-12.4 (test code = 754) NUCLEATED RED BLOOD CELLS 0 /100 WBC 0-0 (BEAKER) (test code = 413) PROTHROMBIN [id number] 05:24:37 Test Item Value Reference Range Interpretation Comments PROTIME (BEAKER) 14.9 seconds 11.9-14.2 H (test code = 759) INR (BEAKER) (test 1.19 See_Comment [Automat ed message] code = 370) The system [employer] generated this result transmitted ref erence range: <=5.90. The reference range was not used to int erpret this result as normal/abnormal . RECOMMENDED COUMADIN/WARFARIN INR THERAPY RANGESSTANDARD DOSE: 2.0 - 3.0 Includes: PROPHYLAXIS for venous thrombosis, systemic embolization; TREATMENT for venous thrombosis and/or pulmonary embolus.HIGH RISK: Target INR is 2.5-3.5 for patients with mechanical heart valves.POCT-GLUCOSE [id number] 17:17:12 Test Item Value Reference Range Interpretation Comments POC-GLUCOSE METER 236 mg/dL 70-110 H : TESTED A T [facility] [address] (BEAKER) (test code = IRASEMA MAURICE MD, 1538) [address]: Rental Car Deliverer/Techni zaynab ID = [id number] for KENNA JACOB PEREZ BASIC METABOLIC [id number] 16:11:14 Test Item Value Reference Range Interpretation Comments SODIUM (BEAKER) 134 meq/L 136-145 L (test code = 381) POTASSIUM (BEAKER) 4.0 meq/L 3.5-5.1 (test code = 379) CHLORIDE (BEAKER) 101 meq/L 98-107 (test code = 382) CO2 (BEAKER) (test 23 meq/L 22-29 code = 355) BLOOD UREA NITROGEN 20 mg/dL 7-21 (BEAKER) (test code = 354) CREATININE (BEAKER) 1.32 mg/dL 0.57-1.25 H (test code = 358) GLUCOSE RANDOM 153 mg/dL 70-105 H (BEAKER) (test code = 652) CALCIUM (BEAKER) 8.9 mg/dL 8.4-10.2 (test code = 697) EGFR (BEAKER) (test 55 mL/min/1.73 ESTIMA TIMBO GFR IS code = 1092) sq m NOT ACCURATE CREATININE CLEARANCE IN PREDICTING GLOMERULAR FILTRATION RATE . ESTIMATED GFR I S NOT APPLICABLE FOR DIALYSIS PATIEN TS. Rental Car Deliverer ID - [id number] 16:11:14 Test Item Value Reference Range Interpretation Comments MAGNESIUM (BEAKER) (test code = 1.3 mg/dL 1.6-2.6 L 627) Rental Car Deliverer ID - DBHGB/HCT (H&H) - STAT [id number] 10:00:02 Test Item Value Reference Range Interpretation Comments HEMOGLOBIN (BEAKER) (test code = 10.7 GM/DL 13.0-16.8 L 410) HEMATOCRIT (BEAKER) (test code = 31.0 % 40.0-50.0 L 411) GLUCOSE-STAT [id number] 09:58:47 Test Item Value Reference Range Interpretation Comments GLUCOSE RANDOM (BEAKER) (test code 119 mg/dL 70-110 H = 652) SODIUM NA-STAT [id number] 09:58:03 Test Item Value Reference Range Interpretation Comments SODIUM (BEAKER) (test code = 381) 137 meq/L 136-145 POTASSIUM-STAT [id number] 09:58:03 Test Item Value Reference Range Interpretation Comments POTASSIUM (BEAKER) (test code = 3.5 meq/L 3.6-5.5 L 379) [id number] 09:15:11 Test Item Value Reference Range Interpretation Comments ACTIVATED CLOTTING TIME 220 sec : 74 -137 seconds, (BEAKER) (test code = Baseli ne: TESTED AT 441) [facility] [address] [facility] [place], [address]: Rental Car Deliverer/Techni zaynab ID = [id number] for CA STRO, MARU [id number] 09:15:11 Test Item Value Reference Range Interpretation Comments ACTIVATED CLOTTING TIME 232 sec : 74 -137 seconds, (BEAKER) (test code = Baseli ne: TESTED AT 441) [facility] [address] [place] [place], [address]: Rental Car Deliverer/Techni zaynab ID = [id number] for MARU HARDEN (CELLAVISION MANUAL DIFF)2021-04-02 07:06:23 Test Item Value Reference Range Interpretation Comments NEUTROPHILS - REL 58 % (CELLAVISION)(BEAKER) (test code = 2816) LYMPHOCYTES - REL 23 % (CELLAVISION)(BEAKER) (test code = 2817) MONOCYTES - REL 19 % (CELLAVISION)(BEAKER) (test code = 2818) NEUTROPHILS - ABS 5.45 K/ul 1.78-5.38 H (CELLAVISION)(BEAKER) (test code = 2830) LYMPHOCYTES - ABS 2.16 K/ul 1.32-3.57 (CELLAVISION)(BEAKER) (test code = 2831) MONOCYTES - ABS 1.79 K/uL 0.30-0.82 H (CELLAVISION)(BEAKER) (test code = 2832) TOTAL COUNTED (BEAKER) (test code = 100 1351) RBC MORPHOLOGY (BEAKER) (test code Normal = 762) WBC MORPHOLOGY (BEAKER) (test code Normal = 487) PLT MORPHOLOGY (BEAKER) (test code Normal = 486) ARTIFACT (CELLAVISION)(BEAKER) Present (test code = 3432) PLATELET CONCENTRATION Adequate (CELLAVISION)(BEAKER) (test code = 3438) Rental Car Deliverer ID - Gracy Prado comments: Slide comments:CBC W/PLT COUNT & AUTO [id number] 07:06:22 Test Item Value Reference Range Interpretation Comments WHITE BLOOD CELL COUNT (BEAKER) 9.4 K/ L 3.5-10.5 (test code = 775) RED BLOOD CELL COUNT (BEAKER) 4.00 M/ L 4.63-6.08 L (test code = 761) HEMOGLOBIN (BEAKER) (test code = 11.4 GM/DL 13.7-17.5 L 410) HEMATOCRIT (BEAKER) (test code = 35.7 % 40.1-51.0 L 411) MEAN CORPUSCULAR VOLUME (BEAKER) 89.3 fL 79.0-92.2 (test code = 753) MEAN CORPUSCULAR HEMOGLOBIN 28.5 pg 25.7-32.2 (BEAKER) (test code = 751) MEAN CORPUSCULAR HEMOGLOBIN CONC 31.9 GM/DL 32.3-36.5 L (BEAKER) (test code = 752) RED CELL DISTRIBUTION WIDTH 14.5 % 11.6-14.4 H (BEAKER) (test code = 412) PLATELET COUNT (BEAKER) (test 434 K/CU MM 150-450 code = 756) MEAN PLATELET VOLUME (BEAKER) 9.7 fL 9.4-12.4 (test code = 754) NUCLEATED RED BLOOD CELLS 0 /100 WBC 0-0 (BEAKER) (test code = 413) BASIC METABOLIC [id number] 06:47:38 Test Item Value Reference Range Interpretation Comments SODIUM (BEAKER) 139 meq/L 136-145 (test code = 381) POTASSIUM (BEAKER) 4.3 meq/L 3.5-5.1 (test code = 379) CHLORIDE (BEAKER) 103 meq/L 98-107 (test code = 382) CO2 (BEAKER) (test 26 meq/L 22-29 code = 355) BLOOD UREA NITROGEN 24 mg/dL 7-21 H (BEAKER) (test code = 354) CREATININE (BEAKER) 1.25 mg/dL 0.57-1.25 (test code = 358) GLUCOSE RANDOM 97 mg/dL 70-105 (BEAKER) (test code = 652) CALCIUM (BEAKER) 10.0 mg/dL 8.4-10.2 (test code = 697) EGFR (BEAKER) (test 58 mL/min/1.73 ESTIMA TIMBO GFR IS code = 1092) sq m NOT ACCURATE CREATININE CLEARANCE IN PREDICTING GLOMERULAR FILTRATION RATE . ESTIMATED GFR I S NOT APPLICABLE FOR DIALYSIS PATIEN TS. [employer] ID - PIAYA LPROTHROMBIN [id number] 06:44:21 Test Item Value Reference Range Interpretation Comments PROTIME (BEAKER) 15.1 seconds 11.9-14.2 H (test code = 759) INR (BEAKER) (test 1.21 See_Comment [Automat ed message] code = 370) The system [employer] generated this result transmitted ref erence range: <=5.90. The reference range was not used to int erpret this result as normal/abnormal . RECOMMENDED COUMADIN/WARFARIN INR THERAPY RANGESSTANDARD DOSE: 2.0 - 3.0 Includes: PROPHYLAXIS for venous thrombosis, systemic embolization; TREATMENT for venous thrombosis and/or pulmonary embolus.HIGH RISK: Target INR is 2.5-3.5 for patients with mechanical heart valves.
--- NOTE | 2022-01-11 11:09 | ER ---
Nurse's Notes [facility] Name: Dennis Wayne Age: 66 yrs Sex: Male : 1955 Arrival Date: 01/11/2022 Time: 07:52 Bed 11 Private MD: Ryan Cabrera S; Patel, Mitesh Diagnosis: Acute pharyngitis, unspecified Presentation: 01/11 08:16 Chief complaint: Patient states: my throat has been very dry and my voice is raspy, I iw get in dirt and dust at work, symptoms started last week , no cough, no fever , sometimes I get SOB when I'm walking. Coronavirus screen: Client presents with at least one sign or symptom that may indicate coronavirus-19. Initial Sepsis Screen: Does the patient meet any 2 criteria? No. Patient's initial sepsis screen is negative. Does the patient have a suspected source of infection? No. Patient's initial sepsis screen is negative. Risk Assessment: Do you want to hurt yourself or someone else? Patient reports no desire to harm self or others. Onset of symptoms was January 08, 2022. 08:16 Method Of Arrival: Ambulatory iw 08:16 Acuity: ASHLIE 3 iw 10:01 Ebola Screen: Patient denies exposure to infectious person. Patient denies travel to an 1 Ebola-affected area in the 21 days before illness onset. Triage Assessment: 09:00 EENT: Throat is clear. iw Historical: - Allergies: 08:18 No Known Allergies; iw - Home Meds: 08:18 Warfarin Oral [Active]; Digoxin Oral [Active]; cholesterol med [Active]; Metoprolol iw Tartrate Oral [Active]; - PMHx: 08:18 Atrial fibrillation; Hypercholesterolemia; iw - PSHx: 08:18 Carotid endarterectomy; cardiac stent; Cholecystectomy; anal fistula repair; iw - Immunization history:: Client reports receiving the 2nd dose of the Covid vaccine. - Social history:: Smoking status: Patient/guardian denies using tobacco, the patient reports quitting approximately 30 years ago. Screenin:00 Abuse screen: Denies threats or abuse. Denies injuries from another. Nutritional tp1 screening: No deficits noted. Tuberculosis screening: No symptoms or risk factors identified. Fall Risk None identified. Assessment: 09:00 General: Appears in no apparent distress. comfortable, Behavior is calm, cooperative. tp1 Pain: Denies pain. Neuro: Level of Consciousness is awake, alert, obeys commands, Oriented to person, place, time, situation. Cardiovascular: Patient's skin is warm and dry. Respiratory: Airway is patent Respiratory effort is even, unlabored. Derm: Skin is pink, warm \T\ dry. Musculoskeletal: Circulation, motion, and sensation intact. 10:00 Reassessment: Patient appears in no apparent distress at this time. No changes from tp1 previously documented assessment. Patient and/or family updated on plan of care and expected duration. Pain level reassessed. Patient is alert, oriented x 3, equal unlabored respirations, skin warm/dry/pink. 11:05 Reassessment: Patient appears in no apparent distress at this time. No changes from tp1 previously documented assessment. Patient is alert, oriented x 3, equal unlabored respirations, skin warm/dry/pink. Vital Signs: 08:16 BP 141 / 108; Pulse 108; Resp 16; Pulse Ox 95% on R/A; iw 11:43 BP 167 / 98; Pulse 100; Resp 16; Pulse Ox 100% on R/A; iw ED Course: 07:52 Patient arrived in ED. as 07:52 Rafael Oliveira DO is Private Physician. as 07:53 Ryan Cabrera MD is Private Physician. as 08:14 Neo Barr PA is PHCP. [facility] 08:14 Padmini Rivas MD is Attending Physician. [facility] 08:18 Triage completed. iw 08:21 Arm band placed on. iw 09:00 Patient has correct armband on for positive identification. Bed in low position. Call tp1 light in reach. 09:59 Brtitnee Simeon, CHARLI is Primary Nurse. tp1 11:09 Rafael Oliveira DO is Referral Physician. [facility] 11:43 No provider procedures requiring assistance completed. Patient did not have IV access iw during this emergency room visit. Administered Medications: No medications were administered Medication: 11:45 VIS not applicable for this client. tp1 Outcome: 11:09 Discharge ordered by . jmm 11:45 Discharged to home ambulatory. tp1 11:45 Condition: good 11:45 Discharge instructions given to patient, Instructed on discharge instructions, follow up and referral plans. medication usage, Demonstrated understanding of instructions, follow-up care, medications, Prescriptions given X 2. 11:45 Patient left the ED. tp1 Signatures: Neo Barr PA PA jmm Martinez, Amelia as Williams, Irene, RN RN iw Parker, Tiffany, RN RN tp1 Corrections: (The following items were deleted from the chart) 10: 08:30 General: Appears in no apparent distress. comfortable, Behavior is calm, tp1 cooperative, tp1 : 08:30 Pain: Denies pain. tp1 tp1 : 08:30 Neuro: Level of Consciousness is awake, alert, obeys commands, Oriented to tp1 person, place, time, situation, tp1 : 08:30 Cardiovascular: Patient's skin is warm and dry. tp1 tp1 : 08:30 Respiratory: Airway is patent Respiratory effort is even, unlabored, tp1 tp1 10: 08:30 GI: tp1 tp1 : 08:30 Derm: Skin is pink, warm \T\ dry. tp1 tp1 10: 08:30 Musculoskeletal: Circulation, motion, and sensation intact. tp1 tp1
--- NOTE | 2022-01-11 11:09 | EDPHYS ---
Physician Documentation [facility] Name: Dennis Wayne Age: 66 yrs Sex: Male : 1955 Arrival Date: 01/11/2022 Time: 07:52 Bed 11 Private MD: Ryan Cabrera S; Patel, Mitesh ED Physician Padmini Rivas HPI: 01/11 08:23 This 66 yrs old Male presents to ER via Ambulatory with complaints of Sore Throat - jmm dry, Shortness Of Breath. 08:23 The patient presents with sore throat. Onset: The symptoms/episode began/occurred jmm gradually, 1 week(s) ago. Modifying factors: The symptoms are alleviated by nothing, the symptoms are aggravated by nothing. This is a 66 year old male with a history of atrial fibrillation, hlp that presents to the ED with complaints of dry cough, sore throat beginning approx a week ago. Also states he has been out of his digoxin, metoprolol for 3 to 4 months. Almost out of his warfarin. Patient is unsure of doses. . Historical: - Allergies: 08:18 No Known Allergies; iw - Home Meds: 08:18 Warfarin Oral [Active]; Digoxin Oral [Active]; cholesterol med [Active]; Metoprolol iw Tartrate Oral [Active]; - PMHx: 08:18 Atrial fibrillation; Hypercholesterolemia; iw - PSHx: 08:18 Carotid endarterectomy; cardiac stent; Cholecystectomy; anal fistula repair; iw - Immunization history:: Client reports receiving the 2nd dose of the Covid vaccine. - Social history:: Smoking status: Patient/guardian denies using tobacco, the patient reports quitting approximately 30 years ago. ROS: 08:23 Constitutional: Positive for body aches. jmm 08:23 ENT: Positive for sore throat. 08:23 All other systems are negative. Exam: 08:23 Constitutional: This is a well developed, well nourished patient who is awake, alert, jmm and in no acute distress. Head/Face: atraumatic. Eyes: EOMI, no conjunctival erythema appreciated 08:23 Chest/axilla: Normal chest wall appearance and motion. Cardiovascular: Regular rate and rhythm. No edema appreciated Respiratory: Normal respirations, no respiratory distress appreciated Abdomen/GI: Non distended Back: Normal ROM Skin: General appearance color normal 08:23 ENT: Posterior pharynx: erythema, that is moderate. 08:23 Musculoskeletal/extremity: ROM: intact in all extremities. 08:23 Skin: Appearance: Color: normal in color. 08:23 Neuro: Motor: is normal. 08:23 Psych: Behavior/mood is pleasant, cooperative. Vital Signs: 08:16 BP 141 / 108; Pulse 108; Resp 16; Pulse Ox 95% on R/A; iw 11:43 BP 167 / 98; Pulse 100; Resp 16; Pulse Ox 100% on R/A; iw MDM: 08:36 Patient medically screened. [facility] 11:08 Data reviewed: vital signs, nurses notes. Counseling: I had a detailed discussion with nimesh the patient and/or guardian regarding: the historical points, exam findings, and any diagnostic results supporting the discharge/admit diagnosis, lab results, radiology results, the need for outpatient follow up, to return to the emergency department if symptoms worsen or persist or if there are any questions or concerns that arise at home. 01/11 08:23 Order name: Influenza Screen (a \\T\\ B) [facility] 01/11 08:23 Order name: Strep [facility] 01/11 08:23 Order name: SARS-COV-2 RT PCR (Document "Date of Onset" if Symptomatic) [facility] 01/11 09:12 Order name: Group A Streptococcus Rapid Sc [facility] 01/11 09:20 Order name: Influenza Screen (A [facility] 01/11 09:39 Order name: SARS-COV-2 RT PCR [facility] 01/11 10:36 Order name: Throat Culture EDND Administered Medications: No medications were administered Disposition Summary: 01/11/22 11:09 Discharge Ordered Location: Home [facility] Condition: Stable [facility] Diagnosis - Acute pharyngitis, unspecified [facility] Followup: [facility] - With: Rafael Oliveira, DO - When: 2 - 3 days - Reason: Recheck today's complaints, Continuance of care, Re-evaluation by your physician Discharge Instructions: - Discharge Summary Sheet [facility] - Pharyngitis [facility] Forms: - Medication Reconciliation Form [facility] - Thank You Letter [facility] - Antibiotic Education [facility] - Prescription Opioid Use [facility] - Work release form as Prescriptions: - cefdinir 300 mg Oral capsule - take 1 capsule by ORAL route every 12 hours for 10 days; 20 capsule; Refills: tami 0, Product Selection Permitted - warfarin 2 mg Oral tablet - take 2 tablet by ORAL route once daily for 10 days; 20 tablet; Refills: 0, tami Product Selection Permitted Addendum: 01/14/2022 03:23 STAFF ATTESTATION STATEMENT: I was immediately available onsite in the emergency s d2 department for consultation in the care of this patient. I did not see or examine this patient. Padmini Rivas MD. Signatures: Dispatcher [employer] EDNeo Rocha PA PA jmm Williams, Irene, CHARLI RN Padmini Aguayo MD MD sd2
[2022-01-11 11:54] VITALS: BP 167/98; O2SAT 100
== END 2022-01-11 11:45 | disposition home or self-care (01) ==
LOC: ER 07:49
DX: J02.9 Acute pharyngitis, unspecified (principal); E78.00 Pure hypercholesterolemia, unspecified; I48.91 Unspecified atrial fibrillation; Z20.822 Contact with and (suspected) exposure to COVID-19
CPT/HCPCS: 87070; 87081; 87804 ×2; 99282; U0003

== ENCOUNTER 2022-01-20 11:02 | Inpatient (IN) | payer MEDICARE ==
--- OUTSIDE RECORDS SUMMARY | 2022-01-20 11:10 | XMS REPORT | Continuity of Care Document ---
:1955 Author Organization [facility] t Address [address] [place] [address] Care Team Providers Name Role Phone Asked, No Pcp Primary Care Physician Unavailable Rafael Oliveira Attending Clinician Unavailable KENNY MINOR Attending Clinician Unavailable Victor Hugo AUGUSTIN, Amy Attending Clinician CB SALCEDO Attending Clinician Unavailable Kenny Minor MD Attending Clinician [phone] Cb Salcedo MD Attending Clinician Sid Sorensen MD Attending Clinician Murali Duggan Attending Clinician KENNY MINOR Admitting Clinician Unavailable Payers Payer Name Policy Type Policy Number Effective Date Expiration Date S [facility] HEALTH [id number] 2021 (MEDICARE 00:00:00 REPLACEMENT HMO) ENTRUST CLAIMS [id number] 2014 Common TEAM 00:00:00 [facility] GALAXY PPO [id number] 2014 00:00:00 90 DEGREE [id number] 2014 BENEFITS/ENTRUST 00:00:00 Problems Condition Condition Condition Status Onset Resolution Last Treating Co mments Source Name Details Category Date Date Treatment Clinician Date CKD CKD Disease Active [facility]ronic (chronic 04-03 [facility] kidney kidney 00:00: Medical disease) disease) 00 Center stage 2, stage 2, GFR 60-89 GFR 60-89 ml/min ml/min Left Left Disease Active [facility] carotid carotid 04-02 [facility] artery artery 00:00: Medical stenosis stenosis 00 [place] Carotid Carotid Disease Active [facility] stenosis, stenosis, 04-02 [place] s asymptomat asymptomat 00:00: Me dical ic ic 00 [place] Gout Gout Problem Active Common [facility] Allergic Allergic Problem Active Commo n rhinitis rhinitis [facility] Prostatic Prostatic Problem Active Com mon hypertroph hypertroph Sp miguel y y - [facility] Chronic Chronic Problem Active Common back pain back pain Spir it [facility] [id number] Controlled Problem Active Co mmon type 2 Spirit diabetes - CHI mellitus [facility] complicati Medica l on, Center without long-term current use of insulin [id number] Noncomplia Problem Active Co mmon nce with Spirit dietary - CHI restrictio [facility] Gastroesop GERD Problem Active Commo n hageal without Spirit reflux esophagiti - CHI disease [facility] [id number] CKD Problem Active Common (chronic Spirit kidney - CHI disease) stage 4, [facility] GFR 15-29 Medical ml/min [place] Hyperlipid Hyperlipid Problem Active C ommon emia emia [facility] [id number] Proteinuri Problem Active Com mon a, Spirit unspecifie - CHI d type [facility] Laboratory Abnormal Problem Active Com mon test laboratory Spirit result test - CHI abnormal result [facility] [id number] Stented Problem Active Commo n coronary Spirit artery - [facility] [id number] Coronary Problem Active Com mon 107 artery Spirit disease - CHI involving [facility] coronary Medical artery of [place] douglas heart, angina presence unspecifie d [id number] 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 Spirit count - [facility] Hypertensi Hypertensi Disease Active C [facility] on on [facility] Vision Vision Disease Active [facility] abnormalit abnormalit [facility] Coronary Coronary Disease Active [facility] t artery artery [facility] disease disease [facility] Atrial Atrial Disease Active [facility] fibrillati fibrillati Magali kes on on Medical Center History of History of Disease Active C [facility] heart heart [facility] artery artery Medical stent stent Center DM DM Disease Active [facility] (diabetes (diabetes Luke s mellitus) mellitus) [facility] Prostate Prostate Disease Active [facility] t troubles troubles [facility] Allergies, Adverse Reactions, Alerts Allergy Allergy Status Severity Reaction(s) Onset Inactive Treating Comm ents Source Name Type Date Date Clinician NO KNOWN Allergy Active [facility] ALLERGIE [facility] diphenhy diphenhy Active Runny nose, C ommon dramine dramine sneezing Spirit - [facility] Family History Family Member Diagnosis Comments Start Date Stop Date Source Natural father Heart attack [facility] Natural father Hypertension [facility] Natural mother Diabetes [facility] Natural mother Hypertension [facility] Social History Social Habit Start Date Stop Date Quantity Comments Source History of Tobacco Common Spirit - Use [facility] Alcohol intake 2021-04-02 2021-04-02 Current [facility]er [facility] 00:[facility]:00 00:00:00 of [facility] (finding) Cigarettes smoked 2021-01-28 2021-01-[address] [facility] current (pack per 00:00:00 00:00:00 [facility] Center day) - Reported Cigarette 2021-01-28 2021-01-[address] [facility] pack-years 00:00:00 00:00:00 [facility] Tobacco use and 2021-01-28 2021-01-[address] [facility] exposure 00:00:00 00:00:00 [facility] Sex Ass[birth year] [facility] kes 00:00:00 00:00:00 [facility] Smoking Status Start Date Stop Date Source Tobacco smoking [facility] consumption unknown Never Smoker [facility] - [facility] Ce nter Former smoker 2021-01-28 00:00:00 2021-01-[address] [facility] Medical 00:00:00 Center Medications Ordered Filled Start Stop Current Ordering Indication Dosage Frequency Signature Comments Components Source Medication Medication Date Date Medication? Clinician (SIG) Name Name atorvastati Yes 20mg QD Take [address] [facility] (LIPITOR) 07 by mouth Luke s 20 MG 13:46: daily. Medical tablet 29 Center allopurinoL Yes daily as [facility] (ZYLOPRIM) -07 needed. Lukes 300 MG 13:46: Medical tablet 29 Center warfarin Yes 1 tablet [facility] t (COUMADIN, 04-03 Lukes JANTOVEN) 4 13:46: Medica l MG tablet 29 Center carvediloL 2021- No 3.125mg Q.5D Take 3.[address] (COREG) 04-03- mg by Lukes 3.125 MG 09:05: 00:00 mouth 2 Medic al tablet 45 :00 (two) Center times daily. aspirin 325 2021- No 325mg Q.5D Take [address] MG tablet 04-03 mg by Lukes 09:05: 00:00 mouth 2 Medical 45 :00 (two) Center times daily. docusate Yes Use as [facility] sodium 1-07 needed per Lukes (COLACE) 00:00: package Medica l 100 MG 00 instructio Center capsule ns, it is over-the-c ounter.. acetaminoph Yes Use as [facility] en 1-07 needed per LuGoji (TYLENOL) 00:00: package Medic al 325 MG 00 instructio Center tablet ns for mild pain. It is over-the-c ounter. metoprolol 2022- No 25mg Q.5D Take [address] tartrate 04-03 tablet (25 Luke s (LOPRESSOR) 00:00: 23:59 mg total) Medical 25 MG 00 :00 by mouth 2 Center tablet (two) times daily All further refills through outpatient cardiology . No further refills through my office. aspirin 81 2022- No 81mg QD Take [address] MG chewable 04-03 tablet (81 L ukes tablet 00:00: 23:59 mg total) Medic al 00 :00 by mouth Center daily All further refills through outpatient cardiology . No further refills through my office. acetaminoph 2021- No 1{tbl} Take [address] en-codeine 04-03 tablet by Sabrina es (TYLENOL 00:00: 23:59 mouth Medical #3) 300-30 00 :00 every 6 Center mg per (six) tablet hours as needed (Severe acute postproced ural pain. Do not take same time as over-the-c ounter Tylenol dosing) for up to 7 days. Max Daily Amount: 4 tablets digoxin 1-0 Yes QD daily. [facility] (LANOXIN) 9-07 [facility]ukes 0.125 MG 00:00: Medical tablet 00 Center tamsulosin 2020-0 Yes QD daily. CHI S t (FLOMAX) 9-05 [facility]ukes 0.4 mg Cap 00:00: Medical 24 hr 00 Center capsule lisinopril- 2020-0 202- No 1{tbl} Q.5D Take [address] hydroCHLORO 827 04-03 tablet by Magali alva thiazide 00:00: 00:00 mouth 2 Medic al (PRINZIDE,Z 00 :00 (two) Center ESTORETIC) times 20-12.5 mg daily. per tablet Protonix Protonix Yes Rafael 1 tablet Common 3-21 Oliveira Spirit 00:00: - CHI 00 [facility] Fish Oil Fish Oil No Fish Oil [...] MG t} 40 MG Prostate Prostate No [facility] Carvedilol Carvedilol No 1{table BID Carvedilol 6.25 [...] CoQ-10 CoQ-10 No CoQ-[address] [facility] Vitamin E Vitamin E No Vitamin [...] QD Digoxin MCG MCG t} 125 MCG Digoxin Digoxin Yes Rafael 1 tablet Com mon Oliveira [facility] CoQ-10 CoQ-10 Yes Rafael not Common Oliveira defined [facility] Prostate Prostate Yes Rafael not Commo n [facility] Oliveira [facility] Allopurinol Allopurinol Yes Rafael 1 tablet Common Oliveira [facility] Coreg Coreg Yes Rafael 1 tab Common Oliveira [facility] Fish Oil Fish Oil Yes Rafael not Commo n Oliveira defined [facility] Zestoretic Zestoretic Yes Rafael 2 tablets Common Oliveira [facility] Metformin Metformin Yes Rafael 1 tablet Common HCl HCl Oliveira with meals [facility] Lipitor Lipitor Yes Rafael 1 tablet Com mon Oliveira [facility] Clopidogrel Clopidogrel Yes Rafael TAKE 1 Common Bisulfate Bisulfate Oliveira TABLET BY Spirit MOUTH - CHI EVERY DAY [facility] Warfarin Warfarin Yes Rafael 1 tablet C ommon Sodium Sodium Oliveira [facility] Vitamin E Vitamin E Yes Rafael not Com mon Oliveira defined [facility] Fish Oil Fish Oil Yes Rafael 1 capsule Common Oliveira [facility] Carvedilol Carvedilol Yes Rafael 1 tablet Common Oliveira with food [facility] Metformin Metformin Yes Rafael TAKE 1 C ommon HCl HCl Oliveira TABLET BY Spirit MOUTH 2 - CHI TIMES A [facility] Digoxin 125 Digoxin 125 No 1{table QD [...] MG 300 MG t} l 300 MG Vital Signs Vital Name Observation Time Observation Value Comments Source height 2021-09-22 10:50:00 71 [in_i] [facility] weight 2021-09-22 10:50:00 188 [lb_av] [facility] temperature 2021-09-22 10:50:00 98 [degF] [facility] bmi 2021-09-22 10:50:00 26.22 kg/m2 [facility] blood pressure 2021-09-22 10:50:00 128 mm[Hg] [facility] - systolic [facility] blood pressure 2021-09-22 10:50:00 78 mm[Hg] [facility] - diastolic [facility] WEIGHT 2021-04-03 07:59:00 77.2 kg HEIGHT 2021-04-02 05:48:00 180.3 cm WEIGHT 2021-04-02 05:48:00 76.386 kg WEIGHT 2021-04-03 07:59:00 77.2 kg HEIGHT 2021-04-02 05:48:00 180.3 cm WEIGHT 2021-04-02 05:48:00 76.386 kg WEIGHT 2021-04-03 07:59:00 77.2 kg HEIGHT 2021-04-02 05:48:00 180.3 cm WEIGHT 2021-04-02 05:48:00 76.386 kg HEIGHT 2021-01-28 10:48:00 177.8 cm WEIGHT 2021-01-28 10:48:00 82.781 kg HEIGHT 2021-01-28 10:48:00 177.8 cm WEIGHT 2021-01-28 10:48:00 82.781 kg Systolic blood 2021-04-03 11:03:00 120 mm[Hg] [facility] Diastolic blood 2021-04-03 11:03:00 68 mm[Hg] [facility] Heart rate 2021-04-03 11:03:00 91 /min [facility] Body temperature 2021-04-03 11:03:00 36.61 Candi [facility] Respiratory rate 2021-04-03 11:03:00 18 /min [facility] Oxygen saturation in 2021-04-03 11:03:00 99 /min [facility] Arterial blood by Medical Ce nter Pulse oximetry Body weight 2021-04-03 07:59:00 77.2 kg [facility] BMI 2021-04-03 07:59:00 23.74 kg/m2 [facility] Body height 2021-04-02 05:48:00 180.3 cm [facility] Procedures Procedure Date / Time Performed Performing Clinician Marlon walters POCT-GLUCOSE METER 2021-04-03 11:18:00 Cb Salcedo [facility] POCT-GLUCOSE METER 2021-04-03 07:24:00 Kenny Minor [facility] CBC (HEMOGRAM ONLY) 2021-04-03 04:36:00 Masha Kaiser [facility] BASIC METABOLIC PANEL 2021-04-03 04:36:00 Masha Kaiser [facility] MAGNESIUM 2021-04-03 04:36:00 Cb Salcedo [facility] PROTHROMBIN TIME/INR 2021-04-03 04:36:00 Cb Salcedo [facility] HEMOGLOBIN A1C 2021-04-03 04:36:00 Nakia [facility] POCT-GLUCOSE METER 2021-04-02 17:05:00 Kenny Minor [facility] MAGNESIUM 2021-04-02 15:34:00 Nakia [facility] BASIC METABOLIC PANEL 2021-04-02 15:34:00 Cb Salcedo [facility] SODIUM NA-STAT LAB 2021-04-02 09:43:00 Julio César [facility] POTASSIUM-STAT LAB 2021-04-02 09:43:00 Julio César [facility] GLUCOSE-STAT LAB 2021-04-02 09:43:00 Angela [facility] HGB/HCT (H&H) - STAT LAB 2021-04-02 09:43:00 Julio César [facility] TISSUE EXAM 2021-04-02 08:55:00 Iván [facility] POCT-ACT 2021-04-02 08:34:00 Iván [facility] POCT-ACT 2021-04-02 08:10:00 Kenny Minor [facility] ABORH, MANUAL 2021-04-02 06:59:00 Yuridia Veliz [facility] ENDARTERECTOMY, CAROTID 2021-04-02 06:59:[address] [facility] ECG 12-LEAD 2021-04-02 06:52:44 Debonte [facility] ECG 12-LEAD 2021-04-02 06:52:44 Unknown, Hl7 Doctor [facility] BASIC METABOLIC PANEL 2021-04-02 06:17:00 DebonteMasha [facility] CBC W/PLT COUNT & AUTO 2021-04-02 06:17:[address] Debonte [facility] PROTHROMBIN TIME/INR 2021-04-02 06:17:00 Deblamar [facility] TYPE AND SCREEN, 2021-04-02 06:17:00 [facility] W/PLT COUNT & AUTO 2021-04-02 06:17:00 [facility] 2021-04-02 06:17:00 Masha Kaiser Karo [facility] Plan of Care Planned Activity Planned Date Details Comments Source Future Scheduled 2022-01-10 HEPATITIS B VACCINES Met [facility] Hospital Test 12:40:20 (1 of 3 - 3-dose series) [code = HEPATITIS B VACCINES (1 of 3 - 3-dose series)] Future Scheduled 2022-01-10 COVID-19 VACCINE (#1) [facility] Test 12:40:20 [code = COVID-19 VACCINE (#1)] Future Scheduled 2022-01-10 COLONOSCOPY SCREENING [facility] Hospital Test 12:40:20 [code = COLONOSCOPY SCREENING] Future Scheduled 2022-01-10 SHINGLES VACCINES (1 Met [facility] Hospital Test 12:40:20 of 2) [code = SHINGLES VACCINES (1 of 2)] Future Scheduled 2022-01-10 INFLUENZA VACCINE Method is Hospital Test 12:40:20 [code = INFLUENZA VACCINE] Future Scheduled 2022-01-10 65+ PNEUMOCOCCAL Methodi [facility] Test 12:40:20 VACCINE (1 - PCV) [code = 65+ PNEUMOCOCCAL VACCINE (1 - PCV)] Future Scheduled 2022-01-10 HEPATITIS B VACCINES Met [facility] Hospital Test 12:40:20 (1 of 3 - 3-dose series) [code = HEPATITIS B VACCINES (1 of 3 - 3-dose series)] Future Scheduled 2022-01-10 COVID-19 VACCINE (#1) [facility] Test 12:40:20 [code = COVID-19 VACCINE (#1)] Future Scheduled 2022-01-10 COLONOSCOPY SCREENING [facility] Hospital Test 12:40:20 [code = COLONOSCOPY SCREENING] Future Scheduled 2022-01-10 SHINGLES VACCINES (1 Met [facility] Hospital Test 12:40:20 of 2) [code = SHINGLES VACCINES (1 of 2)] Future Scheduled 2022-01-10 INFLUENZA VACCINE Method ist Hospital Test 12:40:20 [code = INFLUENZA VACCINE] Future Scheduled 2022-01-10 65+ PNEUMOCOCCAL Methodi Hospital Test 12:40:20 VACCINE (1 - PCV) [code = 65+ PNEUMOCOCCAL VACCINE (1 - PCV)] Future Scheduled [address] [facility] Test 00:00:00 aneurysm screening Medical C enter (procedure) [code = 646756102] Future Scheduled 2021-11-26 INFLUENZA VACCINE (#1) [facility] Test 00:00:00 [code = INFLUENZA Medical Ce nter VACCINE (#1)] Future Scheduled 2021-01-[address] Magali kes Test 00:00:00 measurement Medical Center (procedure) [code = 27205436] Future Scheduled 2006 SHINGLES VACCINES ([address] [facility] Test 00:00:00 of 2) [code = SHINGLES Medic al Center VACCINES (1 of 2)] Future Scheduled 1991-12-[address] [facility] Test 00:00:00 (procedure) [code = Medical Center 45104113] Future Scheduled 1975-12-07 DTAP/TDAP/TD VACCINES [facility] Test 00:00:00 (1 - Tdap) [code = Medical C enter DTAP/TDAP/TD VACCINES (1 - Tdap)] Future Scheduled 1974 HEPATITIS C SCREENING [facility] Test 00:00:00 [code = HEPATITIS C Medical Center SCREENING] Future Scheduled 1966 DIABETIC EYE EXAM [facility] Test 00:00:00 [code = DIABETIC EYE Medical Center EXAM] Future Scheduled [address] [facility] Test 00:00:00 examination Medical Center (regime/therapy) [code = 547434385] Future Scheduled 1966 Urine screening for [facility] Test 00:00:00 protein (procedure) Medical Center [code = 641925372] Future Scheduled 1962 PNEUMOCOCCAL 65+ Y[facility] Test 00:00:00 (1 - PCV) [code = Medical Ce nter PNEUMOCOCCAL 65+ YRS (1 - PCV)] Future Scheduled 1957-06-05 COVID-19 VACCINE (#1) [facility] Test 00:00:00 [code = COVID-[address] VACCINE (#1)] Future Scheduled [address] [facility] Test 00:00:00 malignant neoplasm of Medica l Center colon (procedure) [code = 712282793] Future Scheduled [address] [facility] Test 00:00:00 malignant neoplasm of Medica l Center colon (procedure) [code = 621562647] Future Scheduled [address] [facility] Test 00:00:00 malignant neoplasm of Medica l Center colon (procedure) [code = 160912630] Future Scheduled [address] [facility] Test 00:00:00 malignant neoplasm of Medica l Center colon (procedure) [code = 940194245] Future Scheduled 1955 Sigmoidoscopy [code = [facility] Test 00:00:00 Sigmoidoscopy] Medical Cente r Future Scheduled [address] [facility] Test 00:00:00 (combo) [code = CT Medical C enter Colonography (combo)] Encounters Start End Encounter Admission Attending Care Care Encounter Source Date/Time Date/Time Type Type Clinicians Facility Department ID 2021-10-06 Outpatient Oliveira, STLMLC STLMLC [id number] Common 11:27:00 Rafael [id number] [facility] 2021-05-04 Outpatient Oliveira, STLMLC STLMLC [id number] Common 09:35:00 Rafael [facility] 2021-05-01 Outpatient Oliveira, STLMLC STLMLC [id number] Common 09:39:01 Rafael [facility] 2021-04-22 Outpatient Oliveira, STLMLC STLMLC [id number] Common 14:10:53 Rafael [id number] [facility] 2021-04-22 Outpatient Oliveira, STLMLC STLMLC [id number] Common 14:02:18 Rafael [id number] [facility] 2021-04-22 Outpatient Oliveira, STLMLC STLMLC [id number] Common 12:32:38 Rafael [id number] [facility] 2021-04-22 Outpatient Oliveira, STLMLC STLMLC [id number] Common 12:31:59 Rafael 83045 [facility] 2021-04-22 Outpatient Oliveira, STLMLC STLMLC [id number] Common 12:22:20 Rafael [id number] [facility] 2021-04-22 Outpatient Oliveira, STLMLC STLMLC [id number] Common 12:08:31 Rafael [id number] Spirit - [facility] 2021-04-22 Outpatient Oliveira, STLC [facility] [id number] Common 11:42:13 Rafael 92836 Spirit - [facility] 2021-04-22 Outpatient Oliveira, STLC [facility] [id number] Common 11:16:53 Rafael 85218 [facility] 2021-04-22 [facility] [id number] Common 11:05:16 Rafael [id number] Spirit [facility] 2021-04-22 [facility] [id number] Common 11:04:46 Rafael 75823 [facility] 2021-10-21 2021-10-21 Outpatient DMG DM [id number] [facility] 00:00:00 00:00:00 [id number] Medica l Group 2021-09-22 2021-09-22 OFFICE [facility] [id number] Co mmon 00:00:00 00:00:00 VISIT [facility] PT - CHI LEVEL 4 [facility] 2021-04-15 2021-04-15 Outpatient TONE MINOR [facility] [id number] SLE 00:00:00 00:00:00 KENNY 2021-04-06 2021-04-06 Telephone Victor Hugo [facility] [id number] 00:00[facility]00 00:00:00 [facility] 2021-04-02 2021-04-03 Inpatient CB CHÁVEZ [facility] Surgery [id number] [facility] 05:30:00 13:46:00 2021-04-02 2021-04-03 [facility] IvánKenny [facility] [id number] 05:30:00 13:46:00 Encounter Nakia Henry [facility] 2021-04-02 2021-04-02 Outpatient [facility] [id number] [facility] 05:30:00 23:59:00 Marjan 2021-04-02 2021-04-02 Surgery Iván [facility] [id number] 07:30:00 10:45:00 [facility] 2021-04-02 2021-04-02 Anesthesia Sid Sorensen [facility] [id number] [facility] 07:17:00 09:34:00 Event Murali Duggan [facility] 2021-04-02 2021-04-02 Orders [facility] [id number] 00:00:00 00:00:00 [facility] 2021-01-28 2021-01-28 Office Iván [facility] [id number] 11:00:00 11:30:00 Visit [facility] 2021-01-28 2021-01-28 Outpatient RADHA GUEVARA SLE [id number] SLE 10:44:29 10:44:29 KENNY 2021-01-28 2021-01-28 Travel [facility] [id number] [facility] 00:[facility]:00 00:00:00 [facility] 2021-01-13 2021-01-13 (TEL) [facility] ST[facility] [id number] Co mmon 00:00:00 00:00:00 [facility] 2021-01-12 2021-01-12 Outpatient RADHA GUEVARA SLE [id number] [facility] 00:00:00 00:00:00 KENNY 2021-01-05 2021-01-05 Outpatient RADHA GUEVARA [facility] [id number] [facility] 00:00:00 00:00:00 KENNY 2020-11-10 2020-11-10 Outpatient RADHA GUEVARA [facility] [id number] [facility] 00:00:00 00:00:00 KENNY 2020-04-29 2020-04-29 Outpatient STLMLC STLMLC [id number] Common 00:00:00 00:00:00 [facility] 2020-04-21 2020-04-21 Outpatient STLMLC STLMLC [id number] Common 00:00:00 00:00:00 [facility] 2020-04-15 2020-04-15 Outpatient STLMLC STLMLC [id number] Common 00:00:00 00:00:00 [facility] 2019-11-26 2019-11-26 Out[facility] [id number] Common 16:40:00 16:40:[address] [facility] 2019-08-23 2019-08-23 Out[facility] [id number] Common 16:00:00 16:00:[address] [facility] 2019-05-23 2019-05-23 Out[facility] [id number] Common 13:13:00 13:13:[address] [facility] 2019-05-01 2019-05-01 [facility] [id number] Common 16:45:00 16:45:00 t Newman [address] [facility] 2019-01-30 2019-01-30 [facility] 27 [id number] Common 16:30:00 16:30:[address] [facility] 2018-09-19 2018-09-19 [facility] 24 [id number] Common 16:30:00 16:30:[address] [facility] 2018-06-15 2018-06-15 [facility] [id number] Common 16:00:00 16:00:[address] [facility] 2018-03-16 2018-03-16 [facility] [id number] Common 15:30:00 15:30:[address] [facility] 2017-12-22 2017-12-22 [facility] 14 [id number] Common 15:45:00 15:45:[address] [facility] 2017-09-21 2017-09-21 [facility] 13 [id number] Common 16:00:00 16:00:[address] [facility] Results Test Description Test Time Test Comments Results Result Comments Source Tissue Exam 2021-04-06 13:10:34 Test Item Value Reference Range Interpretation Comme nts Case Report (test code = 104) Surgical Pathology Report Case: [id number] Authorizing Provider: Kenny Minor, Collected: 04/02/2021 08:55 AM Ordering Location: [facility] Received: 04/02/2021 09:23 AM PERIOPERATIVE SERVICES Pathologist: Cole Nguyễn MD Specimen: Plaque, LEFT CAROTID ARTERY PLAQUE DIAGNOSIS (test code = 3220) m0rrcKUqAXRcv7zrCFAozGJmKuLrVlAwTbLqPm pc dWMxIHtccnRmMVxlcGljOTYwMVxhbnNpXHNwbHRw W2OdokyhUTfdQC8tZO6rxOkkvIBmsKInGFEaOxLz o8sep634jRVzp4efBQJNkucuxVs8oYrpR02jy2D0 BcgrR06gbXJcUTK0MCDwYVZhsGFxLVTyHVU1PXRq gIOsU4dtWQUhQY0fzzciIHwaWWrsMMQwdTY4GPOn eQYlD3VbETIjJOcmIIFvvvg3OzNzTb0seMZgqJlq MFxwYXJkXHBsYWluXGZzMjAgQVJURVJZLCBMRUZU NTWYUx9KMVKrQIZWUUORCWBVOBRPV65BXwarHZNi E5NAJ0aHQSBlIDGJQPYWQ1CIWJOWGGuWONAFBRTL KSHcdWJyoVdwlaMcPIvyj5RaJXydMJDmZH6qoNoq CMOfVC4aIJLtL9logV6wkvh6ZzVcRQEyNlA2OZLg irA9Fdy1WGSsMLqtm8nlg4YwLHFbLVt1eAzsBuJh KSJzo2taqgIpJnQtMDSiJBKuIZUhfXNhV462m3wo b5nrzmUcsVG2TYAuZRL3ERcuygJevlM4KAgvzKIg DeV4DPiqphScXEtryaZqpuNxHac8SOEvQ387CHL2 zXisv3wxMED0JPAcSDFtBjJiAa9unQVsM388HISm LSRLMQWcbJw4IUSnltKdmaOmoZCZt732R472l8lo GRVrupAlpTyGsvzty3atL322FMLzaLBdwkEhLhIe OHPcaXLgwTH1OUNpUL4tbklgNRkxMMddOGBoddQ3 YTQprKZnZ8SsMOYrBW8qoapqQZZ0AWldKEWfTII1 NbEqPQPzb6Hmgar3XjWamk0yfw20AIT5i4QefWjf DRQ4TLG7SmLoXx0jkTTmIKQqPN3uAgXnmGDfLSEq lh55kRrnLJleXGV4MXJclwZzj6Gch6vzNmCzckVc U1ktG7QaDCSiRCXfJRUlUpTmffHok9Hai0RqeRSv xDz8c9zkDCHwVLTwwVgut7oyHUR7YYTueQXdW5xz nB8nVYTnRG1zdgfly4kkLCmzLMzmYWVmqUY0pnN2 RJTctNFgK8WylY5tBQDgIOcjLXHdsjg1PsSoBr7x dGVyeTcyMFxzYmtwYWdlXHBnbmNvbnRccGduZGVj XHBsYWluXHBsYWluXGYwXGZzMjRccWxcbGFuZzEw TaVtcDuvhKthIOiwYpOoOSMjJHtpQ8frMoOjQvWn Qja2NVJtyEOuWDNrJsz6TSZhbPZnRYPXwCxbiM4k NJXedJzvsS7toQR7SIGcutLlzBLIuY3iACCRgQ3q NjY6IqKkHfN6WBb9BBWkiXJadM0= CPT Code(s) (test code = 3357) r6ymqWYrOCBmkAM2MeEdWHFsu0mhg2SrsORv cGFy HPsjzKVjvnXfaj73mNC0cG52FW2rOIMsBuX4YVUn pwR9Vne7RRDyDHHiaJTrN225h2uhr1btwuXliJW2 vIkfZGHehlraSmZ0PAlkXIBcspioFXj2FQrpAULg jXH3CWNcpEWwE4QoLDOmHY8ebws5XMH1HSokXEXs CuU8BSUqnHMoGRCryBtpJXuaw324TJK7ZxKhEQPj ceEnhRfofM2cImEdWIH1UDQdMEwbAHkmKBEqsTAp fQ== CLINICAL HISTORY (test code = 3356) i0ocuKDyNQXocMI1MmJjGZYur7otj8Z sdHBncGFy AYznbNDucrZsbt26bJE0pE48ZX6dBCMqYdW8GSKx btT6Qae8HWZpCYDihZPuG809i9ieu9arfePieDF8 jDuvYVWezuatYlK4BSgdALYnmqqnNQk3RQnsHFDx eCW9JMPxfWHhN4WnSRMkTT8nwmg9YCL1NTfsBPSg WhY3NTMxqMCjDWNvoEyeNPidk473BEZ9MyLoREKq ywXqjUczjV0mAcDtBOEDANLruKwtECV2KG6jc7cn QCj6DHVyoRZiLZUqjb8= SPECIMEN SOURCE (test code = 3377) h3oyoYIrHAWhiUA3SwXbWNBpw6mnd5Gd dHBncGFy ZJbqrOQqilKiqm20uOP5xO15IN9bHGPiJjN9EKYp qtF7Gqt7TVMuEWBhzFHkW975r1fld4wavyQzjKN2 tAfeOHOkudxxNsY8QNatOSXyxeagVSe9WHnuDFKl wEJ4ZZIbjUTfX4VjCUMcSY9ikvw7DOY9HMqjOGDh IeK0VPMcvHAsWNFeiLrvPYjwh625QDY7NkTgMTHc bhRsrTvhnK8jDcSmVVARKbRHnTSfaVGfbLPffF== GROSS DESCRIPTION (test code = 3366) e2bndCUtIBHvfNV0NmFjMSBwg6wzd5 BsdHBncGFy FTqevICoqkTzpr51aKF5tY09HJ5kVSGjYkZ7RROx uwJ6Bdo4BWKcNDIwsXPzF015c9qpy8btuoBuiYN6 oUjsKORjhzsqWvI7XWdhPADqbzxyGLa5WYqiHMFy bDcyMFxtYXJncjcyMFxtYXJndDcyMFxtYXJnYjcy ESfkRVQdSSV9GYnjs296BCM0GXagN6dpoU3fEoJ1 ONnoJ0synJ6iFKe4PDvrLZEnlLC4nbehXPseZASq vlD9cjiwFNxbLTOdoYP8rdjcSMaeGKMqWdI7rqmn WWzqRYZaJYKrOSkoCUOiHqXnYQ4hMATyN2QtawEn PGHyXYWdJSGpFORxeQVeCJGfMPQmTTTzTG85R6Uv obRvEQqkIRMtXZGacFQzbLHxkA8cVMGiIEIqNRXe bGVmdCBjYXJvdGlkIGFydGVyeSBwbGFxdWUiIGFu ZJMvo81hzEY1mtBaGdVaRUHrbt57TCwqn5zgWPCf wr9tYXI7ViUhFOCug2MfwKP1yFCkAYu1YlVqsXDf MthtlNWuWsudK91lJnFgRZycGSZmPXMwdIWjSIao BBGfqsthnLd6RRAuS2Qgb74fLNU9ytWdPSXnRNwc iNSbNNrzgIfpdvNqhDNgd9OaXnTiGHMivUwvnT3k iAFrIDmdzKVyT1R0xN7nHsKoItSfreLoWL56KRYo tmHwe7XquXlohcMnRWAxZWI8Qj0nlBZsMXCwrrBS DROzt4IiLEFfKXzkJTVccgomXYKbOvOfFHPWSQYw yfusGZW0gLRrY7I6WYDtqOpaRBN7 MICROSCOPIC DESCRIPTION (test code = v0fwdHRtFXOjfMH9EsLmKFAgh3mow4 BsdHBncGFy 3371) UJvneEVtgnCytc83gKD2bA28YF2ySWKyQqK4UIHa yvQ3Xpx1KPEsQZWhzDYsX399z1qif6pdwlBmjPJ1 uGnkLOAdfnjuHaQ0NNyfNETmzjdxSQk7VOykRIYq aTO4IBXyhGHdS4VhXKDqPW0ajmu4UKL3OXebLWNu EnU3IPXnsKUtKCSqnJknAVooj088OPU7SnZtWFIq rsOlcMmcyW6vRvYhPSSGEOOmm9SgPECukFAufL== [facility] [id number] 13:10:34Surgical Pathology Report Case: [id number] Authorizing Provider: Kenny Minor, Collected: 04/02/2021 08:55 AM Ordering Location: [facility] Received: 04/02/2021 09:23 AM PERIOPERATIVE SERVICES Pathologist: Cole Nguyễn MD Specimen: Plaque, LEFT CAROTID ARTERY PLAQUE ARTERY, LEFT CAROTID, ENDARTERECTOMY:CALCIFIC ATHEROSCLEROTIC PLAQUE Signing Pathologist Direct Phone Line: [phone]; [phone] stenosis A. PlaqueA. Received fresh, labeled the patient's name, assessment number, and "left carotid arteryplaque" and consists of a morgan-yellow, firm, tubular structure (5.1 x 0.8 x 0.7 cm). The specimen is serially sectioned to reveal morgan-yellow cut surfaces minimal calcification. Department Sales Manager sections are submitted in A1 for decal.Brad Chaparro StudentPerformedPOC-Glucose [id number] 11:29:45 Test Item Value Reference Range Interpretation Comments POC-Glucose Meter (test 133 mg/dL 70-110 H : TE STED AT [facility] code = 1538) [address] [facility], [address]: Assistant Case Manager/Techni zaynab ID = [id number] for WALLY GENAO Lab Interpretation (test Abnormal code = 98064-4) [facility] [id number] 11:29:45 Test Item Value Reference Range Interpretation Comments POC-GLUCOSE METER 133 mg/dL 70-110 H : TESTED A T [facility] 6720 (BEAKER) (test code = [facility], 1538) [address]: Assistant Case Manager/Techni zaynab ID = [id number] for WALLY [place] Hemoglobin [id number] 09:12:38 Test Item Value Reference Range Interpretation Comments Hemoglobin A1C (test 5.6 % See_Comment [Autom ated code = 4549-2) message] The system which generated this result transmitted reference range : <=5.6%. The reference range was not used to interpret this result as normal/abnormal . PARMJIT (test code = PARMJIT) "The A1c is measured using a NGSP-certified method. HbA1c value equal to or greater than 6.5% as the diagnosis cutoff for diabetes. An HbA1c value of 5.7-6.4% indicates increased risk for diabetes (prediabetes)."O perator ID - ADM Lab Interpretation Normal (test code = 69179-7) [facility] CenterHEMOGLOBIN [id number] 09:12:38 Test Item Value Reference Range Interpretation Comments HEMOGLOBIN A1C 5.6 % See_Comment [Automated m essage] ELECTROPHORESIS (BEAKER) The system which (test code = 3811) generated this result transmitted ref erence range: <=5.6%. The reference range was not used to int erpret this result as normal/abnormal . "The A1c is measured using a NGSP-certified method. HbA1c value equal to or greater than 6.5% as thediagnosis cutoff for diabetes. An HbA1c value of 5.7- 6.4% indicates increased risk for diabetes (prediabetes)."Assistant Case Manager ID - ADMPOCT- GLUCOSE [id number] 07:35:52 Test Item Value Reference Range Interpretation Comments POC-GLUCOSE METER 120 mg/dL 70-110 H : TESTED A T [facility] 6720 (BEAKER) (test code = [place], 1538) [address]: Assistant Case Manager/Techni zaynab ID = [id number] for JACOB MOORE Basic Metabolic [id number] 05:47:32 Test Item Value Reference Range Interpretation Comments Sodium (test code = 134 meq/L 136-145 L 2951-2) Potassium (test code = 4.0 meq/L 3.5-5.1 2823-3) Chloride (test code = 101 meq/L 98-107 2075-0) CO2 (test code = 26 meq/L 22-29 2028-9) BUN (test code = 19 mg/dL 7-21 3094-0) Creatinine (test code 1.28 mg/dL 0.57-1.25 H = 2160-0) Glucose (test code = 129 mg/dL 70-105 H 2345-7) Calcium (test code = 8.8 mg/dL 8.4-10.2 13014-8) EGFR (test code = 57 mL/min/1.73 [place] [address]-9) NOT ACCURATE CREATININE CLEARANCE IN PREDICTING GLOMERULAR FILTRATION RATE . ESTIMATED GFR I S NOT APPLICABLE FOR DIALYSIS PATIENTS. PARMJIT (test code = PARMJIT) Assistant Case Manager ID - PIAYA L Lab Interpretation Abnormal (test code = 70378-5) [facility] CenterMagnesium2022-01-07 05:47:32 Test Item Value Reference Range Interpretation Comments Magnesium (test code = 2.1 mg/dL 1.6-2.6 13590-7) PARMJIT (test code = PARMJIT) Assistant Case Manager ID - PIAYA L Lab Interpretation (test Normal code = 25283-3) [facility] CenterBASIC METABOLIC [id number] 05:47:32 Test Item Value Reference Range Interpretation [...] S NOT APPLICABLE FOR DIALYSIS PATIEN TS. Assistant Case Manager ID - MARY [id number] 05:47:32 Test Item Value Reference Range Interpretation Comments MAGNESIUM (BEAKER) (test code = 2.1 mg/dL 1.6-2.6 627) Assistant Case Manager ID - PERLATAMEKA LCBC (Hemogram only)2021-04-03 05:25:19 Test Item Value Reference Range Interpretation Comments WBC (test code = 6690-2) 9.3 See_Comment [A utomated message] The system [employer] generated this result transmitted ref erence range: 3.5 - 10 .5 K/L. The refe rence range was not u sed to interpret this result as normal/abnor mal. RBC (test code = 789-8) 3.27 See_Comment L [Au tomated message] The system [employer] generated this result transmitted ref erence range: 4.63 - 6 .08 M/L. The refe rence range was not u sed to interpret this result as normal/abnor mal. MCHC (test code = 786-4) 31.8 See_Comment L [A utomated message] The system [employer] generated this result transmitted ref erence range: 32.3 - 3 6.5 GM/DL. The refe rence range was not u sed to interpret this result as normal/abnor mal. Hematocrit (test code = 29.6 % 40.1-51.0 L 4544-3) MCV (test code = 787-2) 90.5 fL 79.0-92.2 MCH (test code = 785-6) 28.7 pg 25.7-32.2 RDW (test code = 788-0) 14.8 % 11.6-14.4 H Platelets (test code = 361 See_Comment [Aut omated message] 777-3) The system [employer] generated this result transmitted ref erence range: 150 - 45 0 K/CU MM. The referen ce range was not u sed to interpret this result as normal/abnor mal. MPV (test code = 9.8 fL 9.4-12.4 40833-2) nRBC (test code = 413) 0 See_Comment [Aut omated message] The system [employer] generated this result transmitted ref erence range: 0 - 0 /1 00 WBC. The refere nce range was not u sed to interpret this result as normal/abnor mal. Lab Interpretation (test Abnormal code = 75339-4) [facility] (HEMOGRAM ONLY)2021-04-03 05:25:19 Test Item Value Reference [...] WBC 0-0 (BEAKER) (test code = 413) Prothrombin time/[id number] 05:24:37 Test Item Value Reference Interpretation Comments Range Protime (test code = 14.9 See_Comment H [Autom ated 5902-2) message] The system which generated this result transmitted reference range : 11.9 - 14.2 seconds. The reference range was not used to interpret this result as normal/abnormal . INR (test code = 1.19 See_Comment [Automated 1281-6) message] The system which generated this result transmitted reference range : <=5.90. The reference range was not used to interpret this result as normal/abnormal . PARMJIT (test code = RECOMMENDED PARMJIT) COUMADIN/WARFARIN INR THERAPY RANGESSTANDARD DOSE: 2.0 - 3.0 Includes: PROPHYLAXIS for venous thrombosis, systemic embolization; TREATMENT for venous thrombosis and/or pulmonary embolus.HIGH RISK: Target INR is 2.5-3.5 for patients with mechanical heart valves. Lab Interpretation Abnormal (test code = 50527-3) [facility] CenterPROTHROMBIN TIME/[id number] 05:24:37 Test Item Value Reference Range Interpretation Comments PROTIME (BEAKER) 14.9 seconds 11.9-14.2 H (test code = 759) INR (BEAKER) (test 1.19 See_Comment [Automat ed message] code = 370) The system [employer] generated this result transmitted ref erence range: <=5.90. The reference range was not used to int erpret this result as normal/abnormal . RECOMMENDED COUMADIN/WARFARIN INR THERAPY RANGESSTANDARD DOSE: 2.0 - 3.0 Includes: PROPHYLAXIS for venous thrombosis, systemic embolization; TREATMENT for venous thrombosis and/or pulmonary embolus.HIGH RISK: Target INR is 2.5-3.5 for patients with mechanical heart valves.POCT-GLUCOSE [id number] 17:17:12 Test Item Value Reference Range Interpretation Comments POC-GLUCOSE METER 236 mg/dL 70-110 H : TESTED A T [facility] 6720 (BEAKER) (test code = [place], 1538) [address]: Assistant Case Manager/Techni zaynab ID = [id number] for JACOB MOORE BASIC METABOLIC [id number] 16:11:14 Test Item Value Reference Range Interpretation [...] S NOT APPLICABLE FOR DIALYSIS PATIEN TS. Assistant Case Manager ID - WWJTUSLFBID7851-54-13 16:11:14 Test Item Value Reference Range Interpretation Comments MAGNESIUM (BEAKER) (test code = 1.3 mg/dL 1.6-2.6 L 627) Assistant Case Manager ID - DBHGB/HCT (H&H)-Stat [id number] 10:00:02 Test Item Value Reference Range Interpretation Comments Hemoglobin (test code = 10.7 See_Comment L [Au tomated message] 786-4) The system [employer] generated this result transmitted ref erence range: 13.0 - 1 6.8 GM/DL. The refe rence range was not u sed to interpret this result as normal/abnor mal. Hematocrit (test code = 31.0 % 40.0-50.0 L 4544-3) Lab Interpretation (test Abnormal code = 34361-8) [facility] CenterH[facility]/HCT (H&H) - STAT [id number] 10:00:02 Test Item Value Reference Range Interpretation Comments HEMOGLOBIN (BEAKER) (test code = 10.7 GM/DL 13.0-16.8 L 410) HEMATOCRIT (BEAKER) (test code = 31.0 % 40.0-50.0 L 411) Glucose-Stat [id number] 09:58:47 Test Item Value Reference Range Interpretation Comments Glucose (test code = 2345-7) 119 mg/dL 70-110 H Lab Interpretation (test code = Abnormal 14344-1) [facility] CenterGLUCOSE-STAT [id number] 09:58:47 Test Item Value Reference Range Interpretation Comments GLUCOSE RANDOM (BEAKER) (test code 119 mg/dL 70-110 H = 652) Sodium Na-Stat [id number] 09:58:03 Test Item Value Reference Range Interpretation Comments Sodium (test code = 2951-2) 137 meq/L 136-145 Lab Interpretation (test code = Normal 91431-6) [facility] CenterPotassium-Stat [id number] 09:58:03 Test Item Value Reference Range Interpretation Comments Potassium (test code = 2823-3) 3.5 meq/L 3.6-5.5 L Lab Interpretation (test code = Abnormal 65071-4) [facility] [id number] 09:58:03 Test Item Value Reference Range Interpretation Comments SODIUM (BEAKER) (test code = 381) 137 meq/L 136-145 POTASSIUM-STAT [id number] 09:58:03 Test Item Value Reference Range Interpretation Comments POTASSIUM (BEAKER) (test code = 3.5 meq/L 3.6-5.5 L 379) POC ACTIVATED CLOTTING [id number] 09:15:11 Test Item Value Reference Range Interpretation Comments Activated Clotting Time 220 sec : 74 -137 seconds, (test code = 3184-9) James walters: TESTED AT [facility] [address] [facility], [address]: Assistant Case Manager/Techni zaynab ID = [id number] for MARU HASSAN [facility] CenterPOCT-[id number] 09:15:11 Test Item Value Reference Range Interpretation Comments ACTIVATED CLOTTING TIME 220 sec : 74 -137 seconds, (BEAKER) (test code = Baseli ne: TESTED AT 441) [facility] [address] [facility], [address]: Assistant Case Manager/Techni zaynab ID = [id number] for CA STRO, MARU [id number] 09:15:11 Test Item Value Reference Range Interpretation Comments ACTIVATED CLOTTING TIME 232 sec : 74 -137 seconds, (BEAKER) (test code = Baseli ne: TESTED AT 441) [facility] [address] [facility], [address]: Assistant Case Manager/Techni zaynab ID = [id number] for CA STRO, MARU ABORH, [id number] 07:35:00 Test Item Value Reference Range Interpretation Comments ABO Grouping (test code = 2588) A Rh Factor (test code = 2589) POS [facility] CenterManual [id number] 07:06:23 Test Item Value Reference Range Interpretation Comments % Neutros (test code = 58 % 2816) % Lymphs (test code = 23 % 2817) % Monos (test code = 19 % 2818) # Neutros (test code = 5.45 K/ul 1.78-5.38 H 2830) # Lymphs (test code = 2.16 K/ul 1.32-3.57 2831) # Monos (test code = 1.79 K/uL 0.30-0.82 H 2832) Total Counted (test 100 code = 1351) RBC Morphology (test Normal code = 762) WBC Morphology (test Normal code = 487) Platelet Morphology Normal (test code = 486) Artifact (test code = Present 3432) Platelet Conc (test Adequate code = 3438) PARMJIT (test code = PARMJIT) Assistant Case Manager ID - Gracy Prado comments: Slide comments: Lab Interpretation Abnormal (test code = 91067-6) [facility](CELLAVISION MANUAL DIFF)2021-04-02 07:06:23 Test Item Value Reference [...] CONCENTRATION Adequate (CELLAVISION)(BEAKER) (test code = 3438) Assistant Case Manager ID - Gracy Prado comments: Slide comments:CBC with platelet count + automated [id number] 07:06:22 Test Item Value Reference Range Interpretation Comments WBC (test code = 6690-2) 9.4 See_Comment [A utomated message] The system [employer] generated this result transmitted ref erence range: 3.5 - 10 .5 K/L. The refe rence range was not u sed to interpret this result as normal/abnor mal. RBC (test code = 789-8) 4.00 See_Comment L [Au tomated message] The system [employer] generated this result transmitted ref erence range: 4.63 - 6 .08 M/L. The refe rence range was not u sed to interpret this result as normal/abnor mal. MCHC (test code = 786-4) 31.9 See_Comment L [A utomated message] The system [employer] generated this result transmitted ref erence range: 32.3 - 3 6.5 GM/DL. The refe rence range was not u sed to interpret this result as normal/abnor mal. Hematocrit (test code = 35.7 % 40.1-51.0 L 4544-3) MCV (test code = 787-2) 89.3 fL 79.0-92.2 MCH (test code = 785-6) 28.5 pg 25.7-32.2 RDW (test code = 788-0) 14.5 % 11.6-14.4 H Platelets (test code = 434 See_Comment [Aut omated message] 777-3) The system [employer] generated this result transmitted ref erence range: 150 - 45 0 K/CU MM. The referen ce range was not u sed to interpret this result as normal/abnor mal. MPV (test code = 9.7 fL 9.4-12.4 36213-7) nRBC (test code = 413) 0 See_Comment [Aut omated message] The system [employer] generated this result transmitted ref erence range: 0 - 0 /1 00 WBC. The refere nce range was not u sed to interpret this result as normal/abnor mal. Lab Interpretation (test Abnormal code = 99084-1) [facility] W/PLT COUNT & AUTO [id number] 07:06:22 Test Item Value Reference Range Interpretation [...] WBC 0-0 (BEAKER) (test code = 413) Type and screen, [id number] 07:02:00 Test Item Value Reference Range Interpretation Comments ABO/RH AUTOMATED (BEAKER) (test A POSITIVE code = 2260) Ab Scrn (test code = 890-4) NEGATIVE [facility] METABOLIC [id number] 06:47:38 Test Item Value Reference Range Interpretation [...] S NOT APPLICABLE FOR DIALYSIS PATIEN TS. Assistant Case Manager ID - PIAYA LPROTHROMBIN TIME/[id number] 06:44:21 Test Item Value Reference Range Interpretation Comments PROTIME (BEAKER) 15.1 seconds 11.9-14.2 H (test code = 759) INR (BEAKER) (test 1.21 See_Comment [Automat ed message] code = 370) The system [employer] generated this result transmitted ref erence range: <=5.90. The reference range was not used to int erpret this result as normal/abnormal . RECOMMENDED COUMADIN/WARFARIN INR THERAPY RANGESSTANDARD DOSE: 2.0 - 3.0 Includes: PROPHYLAXIS for venous thrombosis, systemic embolization; TREATMENT for venous thrombosis and/or pulmonary embolus.HIGH RISK: Target INR is 2.5-3.5 for patients with mechanical heart valves.
[2022-01-20 12:09] LABS: Absolute Lymphocytes (CBC) 1.5 K/uL (0.7-4.9); Hematocrit 38.4 % (39.6-49.0); Lymphocytes % 15.4 % (15.3-44.8); MCV 87.5 fL (80-100); MPV 7.5 fL (7.6-11.3); RBC Red Blood Cell Count 4.39 M/uL (4.33-5.43)
[2022-01-20 12:33] LABS: Magnesium 1.8 mg/dL (1.8-2.4); Potassium 3.7 mmol/L (3.5-5.1); Troponin High Sensitivity 34.5 pg/mL (<58.9)
--- NOTE | 2022-01-20 12:37 | EDPHYS ---
Physician Documentation [facility] Name: Dennis Wayne Age: 66 yrs Sex: Male : 1955 Arrival Date: 01/20/2022 Time: 11:07 Bed 19 Private MD: T[facility] ED Physician Justin Chapin HPI: 01/20 12:36 This 66 yrs old Male presents to ER via Ambulatory with complaints of Weakness, ms3 Breathing Difficulty. 12:36 The patient has shortness of breath at rest. Onset: The symptoms/episode began/occurred ms3 last week. Duration: The symptoms are continuous. The patient's shortness of breath is aggravated by exertion, is alleviated by nothing. Associated signs and symptoms: The patient has no apparent associated signs or symptoms. Severity of symptoms: At their worst the symptoms were moderate in the emergency department the symptoms are unchanged. 66-year-old male with past medical history of atrial fibrillation, hypercholesterolemia presents for lower extremity swelling and shortness of breath from Dr. Maurer's office. Per Dr. Corona patient is not in acute heart failure. He would like patient to receive 40 mg Lasix IV patient's creatinine is normal. Patient denies pain at this time. Patient denies alleviating or inciting factors. Historical: - Allergies: 11:33 No Known Allergies; ap3 - PMHx: 11:33 Atrial fibrillation; Hypercholesterolemia; ap3 - PSHx: 11:33 Anal fistula repair; cardiac stent; Carotid endarterectomy; Cholecystectomy; ap3 - Immunization history:: Client reports receiving the 2nd dose of the Covid vaccine. - Social history:: Smoking status: Patient denies any tobacco usage or history of. ROS: 12:36 Constitutional: Negative for fever, and chills. Neck: Negative for injury, pain, and ms3 swelling, Cardiovascular: Negative for chest pain, and palpitations. 12:36 MS/Extremity: Negative for injury and deformity, Skin: Negative for injury, rash, and discoloration. 12:36 Respiratory: Positive for dyspnea on exertion, shortness of breath. 12:36 MS/extremity: Positive for lower extremity edema. 12:36 All other systems are negative. Exam: 12:36 Constitutional: This is a well developed, well nourished patient who is awake, alert, ms3 and in no acute distress. Head/Face: Normocephalic, atraumatic. Neck: Trachea midline, no cervical lymphadenopathy. Supple, full range of motion without nuchal rigidity, or vertebral point tenderness. No Meningismus. Chest/axilla: Normal chest wall appearance and motion. Nontender with no deformity. 12:36 Cardiovascular: Rate: normal, Rhythm: irregularly irregular, Pulses: no pulse deficits are appreciated, Heart sounds: normal, Edema: 4+ edema to level of left leg and right leg, pedal edema, ankle edema. 12:36 ECG was reviewed by the Attending Physician. Vital Signs: 11:30 BP 145 / 95; Pulse 98; Resp 25; Pulse Ox 97% ; db 11:31 BP 148 / 89; Pulse 98; Resp 18; Temp 98.9; Pulse Ox 96% ; Weight 81.65 kg; Height 5 ft. ap3 11 in. (180.34 cm); 12:30 BP 157 / 99; Pulse 89; Resp 24; Pulse Ox 97% ; db 13:30 BP 169 / 100; Pulse 116; Resp 22; Pulse Ox 95% ; db 14:30 BP 150 / 101; Pulse 93; Resp 18; Pulse Ox 95% ; db 16:00 BP 133 / 90; Pulse 106; Resp 24; Pulse Ox 96% ; Pain 0/10; db 11:31 Body Mass Index 25.10 (81.65 kg, 180.34 cm) ap3 MDM: 11:26 Patient medically screened. ms3 12:36 Data reviewed: vital signs, nurses notes, lab test result(s), EKG, radiologic studies, ms3 and as a result, I will admit patient. Data interpreted: media monitor: Pulse oximetry:. Counseling: I had a detailed discussion with the patient and/or guardian regarding: the historical points, exam findings, and any diagnostic results supporting the discharge/admit diagnosis, lab results, radiology results, the need for further work-up and treatment in the hospital. ED course: Discussed need for admission with patient. Patient understands agrees plan. All questions were answered. Patient remained in stable condition in the emergency department. 01/20 11:27 Order name: Basic Metabolic Panel; Complete Time: 12:36 ms3 01/20 11:27 Order name: CBC with Diff; Complete Time: 13:48 ms3 01/20 11:27 Order name: Magnesium; Complete Time: 12:36 ms3 01/20 11:27 Order name: NT PRO-BNP; Complete Time: 12:36 ms3 01/20 11:27 Order name: Troponin HS; Complete Time: 12:36 ms3 01/20 11:27 Order name: XRAY Chest (1 view); Complete Time: 13:48 ms3 01/20 11:27 Order name: EKG; Complete Time: 11:28 ms3 01/20 12:57 Order name: Manual Differential; Complete Time: 13:48 EDMS 01/20 13:24 Order name: CONS Physician Consult EDAZ 01/20 13:27 Order name: Heart Healthy EDAZ 01/20 13:35 Order name: SARS-COV-2 Antigen Rapid bd 01/20 14:55 Order name: SARS-COV-2 Antigen Rapid EDAZ 01/20 11:27 Order name: Cardiac monitoring; Complete Time: 11:43 ms3 01/20 11:27 Order name: EKG - Nurse/Tech; Complete Time: 12:23 ms3 01/20 11:27 Order name: IV Saline Lock; Complete Time: 11:59 ms3 01/20 11:27 Order name: Labs collected and sent; Complete Time: 11:59 ms3 01/20 11:27 Order name: O2 Per Protocol; Complete Time: 11:43 ms3 01/20 11:27 Order name: O2 Sat Monitoring; Complete Time: 11:43 ms3 EC:36 Rate is 86 beats/min. Rhythm is irregularly irregular. Left axis deviation noted. QRS ms3 interval is prolonged. No ST changes noted. Clinical impression: No evidence of ischemia. Interpreted by me. Reviewed by me. Administered Medications: 13:00 Drug: Lasix (furosemide) 40 mg Route: IVP; Site: right antecubital; db 13:51 Follow up: Response: No adverse reaction db Disposition Summary: 01/20/22 12:36 Hospitalization Ordered Hospitalization Status: Inpatient Admission ms3 Provider: David Corona ms3 Location: Telemetry/MedSurg (Inpatient) ms3 Condition: Stable ms3 Problem: new ms3 Symptoms: are unchanged ms3 Bed/Room Type: Standard ms3 Room Assignment: 204(01/20/22 16:35) bd Diagnosis - Heart failure, unspecified ms3 - Edema, unspecified ms3 - Shortness of breath ms3 Forms: - Medication Reconciliation Form ms3 - SBAR form ms3 Signatures: Dispatcher [employer] EDMS Hiral Sinclair Amanda, RN RN ap3 Justin Chapin, DO ms3 Niya Mares, RN RN db Corrections: (The following items were deleted from the chart) 12:57 12:16 CBC Smear Scan ordered. EDMS EDMS 16:35 12:36 ms3 bd
--- NOTE | 2022-01-20 12:37 | ER ---
Nurse's Notes [facility] Name: Dennis Wayne Age: 66 yrs Sex: Male : 1955 Arrival Date: 01/20/2022 Time: 11:07 Bed 19 Private MD: Rafael Oliveira Diagnosis: Heart failure, unspecified;Edema, unspecified;Shortness of breath Presentation: 01/20 11:31 Chief complaint: Patient states: he was sent by Dr. Maurer for increased shortness of ap3 breath that has increased in severity over the last few months. Patient states his lower extremities are swollen, and he noticed it when he went to put his boots on that they have been getting tighter. Coronavirus screen: At this time, the client does not indicate any symptoms associated with coronavirus-19. Ebola Screen: No symptoms or risks identified at this time. Initial Sepsis Screen: Does the patient meet any 2 criteria? No. Patient's initial sepsis screen is negative. Does the patient have a suspected source of infection? No. Patient's initial sepsis screen is negative. Risk Assessment: Do you want to hurt yourself or someone else? Patient reports no desire to harm self or others. Onset of symptoms is unknown. 11:31 Method Of Arrival: Ambulatory ap3 11:31 Acuity: ASHLIE 3 ap3 Triage Assessment: 11:40 General: Appears uncomfortable, Behavior is calm, cooperative. Pain: Denies pain. ap3 Neuro: Level of Consciousness is awake, alert, obeys commands, Oriented to person, place, time, situation, Gait is steady, Speech is normal. Cardiovascular: Patient's skin is warm and dry. Respiratory: Airway is patent Respiratory effort is even, unlabored. Musculoskeletal: Swelling present in right leg and left leg 3+ pitting edema. Historical: - Allergies: 11:33 No Known Allergies; ap3 - PMHx: 11:33 Atrial fibrillation; Hypercholesterolemia; ap3 - PSHx: 11:33 Anal fistula repair; cardiac stent; Carotid endarterectomy; Cholecystectomy; ap3 - Immunization history:: Client reports receiving the 2nd dose of the Covid vaccine. - Social history:: Smoking status: Patient denies any tobacco usage or history of. Screenin:41 Abuse screen: Denies threats or abuse. Nutritional screening: No deficits noted. ap3 Tuberculosis screening: No symptoms or risk factors identified. 13:00 Fall Risk None identified. No fall in past 12 months (0 pts). No secondary diagnosis (0 db pts). IV access (20 points). Ambulatory Aid- None/Bed Rest/Nurse Assist (0 pts). Gait- Normal/Bed Rest/Wheelchair (0 pts) Mental Status- Oriented to own ability (0 pts). Total Reddy Fall Scale indicates No Risk (0-24 pts). Assessment: 12:01 Reassessment:. General: Behavior is calm, cooperative, appropriate for age, quiet. db Neuro: No deficits noted. Level of Consciousness is awake, alert, obeys commands, Oriented to person, place, time, situation, Appropriate for age. Cardiovascular: Reports shortness of breath, Patient's skin is warm and dry. Rhythm is atrial fibrillation. Respiratory: Reports shortness of breath at rest. GI: No deficits noted. No signs and/or symptoms were reported involving the gastrointestinal system. : No deficits noted. No signs and/or symptoms were reported regarding the genitourinary system. EENT: No deficits noted. No signs and/or symptoms were reported regarding the EENT system. Derm: No deficits noted. No signs and/or symptoms reported regarding the dermatologic system. Musculoskeletal: No deficits noted. No signs and/or symptoms reported regarding the musculoskeletal system. 13:00 Reassessment: Patient appears in no apparent distress at this time. Patient and/or db family updated on plan of care and expected duration. Pain level reassessed. Patient is alert, oriented x 3, equal unlabored respirations, skin warm/dry/pink. shortness of breath with ambulation. 14:00 Reassessment: Patient appears in no apparent distress at this time. Patient and/or db family updated on plan of care and expected duration. Pain level reassessed. Patient is alert, oriented x 3, equal unlabored respirations, skin warm/dry/pink. 15:00 Reassessment: Patient appears in no apparent distress at this time. No changes from db previously documented assessment. Patient and/or family updated on plan of care and expected duration. Pain level reassessed. Patient is alert, oriented x 3, equal unlabored respirations, skin warm/dry/pink. 16:00 Reassessment: Patient appears in no apparent distress at this time. No changes from db previously documented assessment. Patient and/or family updated on plan of care and expected duration. Pain level reassessed. 16:45 Reassessment: Patient appears in no apparent distress at this time. patient improved db from being able to speak one word sentences. Now able to speak with less SOB Patient states feeling better. Patient states symptoms have improved. Respiratory: Airway is patent Respiratory effort is even, unlabored, Respiratory pattern is regular, symmetrical, noted increased SOB when ambulating to restroom. 17:30 Reassessment: Patient appears in no apparent distress at this time. No changes from db previously documented assessment. Patient and/or family updated on plan of care and expected duration. Pain level reassessed. Patient is alert, oriented x 3, equal unlabored respirations, skin warm/dry/pink. Vital Signs: 11:30 BP 145 / 95; Pulse 98; Resp 25; Pulse Ox 97% ; db 11:31 BP 148 / 89; Pulse 98; Resp 18; Temp 98.9; Pulse Ox 96% ; Weight 81.65 kg; Height 5 ft. ap3 11 in. (180.34 cm); 12:30 BP 157 / 99; Pulse 89; Resp 24; Pulse Ox 97% ; db 13:30 BP 169 / 100; Pulse 116; Resp 22; Pulse Ox 95% ; db 14:30 BP 150 / 101; Pulse 93; Resp 18; Pulse Ox 95% ; db 16:00 BP 133 / 90; Pulse 106; Resp 24; Pulse Ox 96% ; Pain 0/10; db 11:31 Body Mass Index 25.10 (81.65 kg, 180.34 cm) ap3 Vitals: 11:30 Cardiac Rhythm Assessment Atrial fibrillation. db ED Course: 11:07 Patient arrived in ED. rg4 11:08 Rafael Oliveira DO is Private Physician. rg4 11:09 Justin Chapin DO is Attending Physician. ms3 11:33 Triage completed. ap3 11:41 Arm band placed on right wrist. ap3 11:42 Niya Mares, CHARLI is Primary Nurse. db 11:42 Placed in gown. Bed in low position. Call light in reach. Side rails up X2. Adult w/ ap3 patient. property assessment monitor on. Pulse ox on. NIBP on. Door closed. Noise minimized. 11:54 Inserted saline lock: 20 gauge in right antecubital area, using aseptic technique. db Blood collected. 12:35 David Corona MD is Hospitalizing Provider. ms3 12:45 XRAY Chest (1 view) In Process Unspecified. EDMS 13:00 No provider procedures requiring assistance completed. Patient admitted, IV remains in db place. 16:45 attempted to call report nurse not available at this time for report. db 17:25 Report given to Micaela. db Administered Medications: 13:00 Drug: Lasix (furosemide) 40 mg Route: IVP; Site: right antecubital; db 13:51 Follow up: Response: No adverse reaction db Medication: 11:41 VIS not applicable for this client. ap3 Outcome: 12:36 Decision to Hospitalize by Provider. ms3 13:00 Admitted to Tele accompanied by tech, via wheelchair. db 13:00 Condition: stable 13:00 Instructed on the need for admit. 17:54 Patient left the ED. db Signatures: Dispatcher [employer] EDMS Dahlia Cabezas rg4 Lary Ch, RN RN ap3 Justin Chapin DO DO ms3 Niya Mares, RN RN db Corrections: (The following items were deleted from the chart) 13:43 13:30 BP 169 / 100; Pulse 116bpm; Resp 18bpm; Pulse Ox 95%; db db
[2022-01-20 12:56] LABS: Blood Morphology Comment NOT SEEN (NOT SEEN); Platelet Estimate ADEQ
--- NOTE | 2022-01-20 13:03 | RAD REPORT ---
EXAM DESCRIPTION: RAD - Chest Single View - 01/20/2022 12:43 pm CLINICAL HISTORY: SOB COMPARISON: Two view chest 10/15/2020 TECHNIQUE: AP portable chest image was obtained 01/20/2022 12:43 pm . FINDINGS: Lung volumes are low. Interstitial pattern is accentuated. There is patchy interstitial op acification in each lower lung field. Bilateral small pleural effusions are evident. Cardiomegaly is present with central vascular engorgement. Trachea is midline. No pneumothorax. No acute bony abnorma lity seen. No acute aortic findings suspected. IMPRESSION: Mild CHF/volume overload pattern.
[2022-01-20] MEDS ORDERED: FUROSEMIDE 40 MG/4 ML VIAL ONE (13:04)
[2022-01-20] MEDS ORDERED: ACETAMINOPHEN 325 MG TABLET PO PRN (13:24)
[2022-01-20 14:55] LABS: SARS-CoV-2 Antigen Rapid Res Negative (Negative)
[2022-01-20] MEDS: ASPIRIN 325 MG TAB PO SCH (15:00)
[2022-01-20] MEDS ORDERED: ONDANSETRON 4 MG/2 ML VIAL IV PRN (15:42)
--- NOTE | 2022-01-20 15:51 | P.HP ---
Certification for Inpatient Patient admitted to: Inpatient With expected LOS: >2 Midnights Patient will require the following post-hospital care: None Practitioner: I am a practitioner with admitting privileges, knowledge of patient current condition, hospital course, and medical plan of care. Services: Services provided to patient in accordance with Admission requirements found in Title 42 Section 412.3 of the Code of Federal Regulations Patient History Date of Service: 01/20/22 Reason for admission: SOB, BLE edema History of Present Illness: Patient is a 66-year-old male with a past medical history significant for atrial fibrillation, HLD, hypertension, DM 2 who presents with complaint of shortness of breath and bilateral lower extremity edema that has been ongoing for the past 2 weeks. Patient reported that his heart rate was elevated. Patient denies any other signs or symptoms. Symptoms are aggravated or relieved by nothing. P atient indicated that he followed up with his plumbers and top helpers and was referred to the hospital for medical management. Patient decided to present to the hospital as directed. Allergies No Known Allergies Allergy (Verified 10/15/20 16:16) Home Medications: Ascorbic Acid [Vitamin C*] 500 mg PO M,W,F 03/29/18 Calcium Carbonate [Calcium] 600 mg PO M,W,F 03/29/18 Cholecalciferol (Vitamin D3) [Vitamin D3] 1,000 unit PO ,W,F 03/29/18 Cyclosporine [Restasis] 1 drop EACH EYE BID 03/29/18 Digoxin [Lanoxin*] 0.125 mg PO [id number] 03/29/18 Fish Oil/Dha/Epa [Fish Oil 1,200 mg Fish Oil] 2 each PO BID 03/29/18 Glimepiride [Amaryl*] 2 mg PO DAILY 03/29/18 Lisinopril/Hydrochlorothiazide [Lisinopril-Hctz 20-12.5 mg Tab] 1 each PO KINGSLEY LY6AM 03/29/18 Metformin HCl [Glucophage*] 500 mg PO BIDWM 03/29/18 Ubidecarenone/Vit E Acet [Co Q-10 100 mg Softgel] 1 each PO DAILY 03/29/18 Vitamin B Complex [Vitamin B Complex*] 1 cap PO M,W,F 03/29/18 Vitamin E (Dl,Tocopheryl Acet) [Vitamin E] 1,000 unit PO M,W,F 03/29/18 Warfarin Sodium [Coumadin*] 2.5 mg PO DAILY 5 PM 03/29/18 carvediloL [Coreg*] 6.25 mg PO BID 03/29/18 Atorvastatin Calcium [Lipitor] 80 mg PO BEDTIME #30 tab 07/29/18 Clopidogrel Bisulfate [Plavix*] 75 mg PO DAILY #30 tablet 07/29/18 Digoxin [Lanoxin*] 0.125 mg PO DAILY tab 07/29/18 Glimepiride [Amaryl*] 2 mg PO DAILY WITH BREAKFAST tab 07/29/18 carvediloL [Coreg*] 6.25 mg PO BID tab 07/29/18 hydroCHLOROthiazide [Hydrochlorothiazide*] 12.5 mg PO DAILY cap 07/29/18 lisinopriL [Prinivil*] 20 mg PO DAILY tab 07/29/18 - Past Medical/Surgical History Diabetic: Yes -: DM type 2 -: HTN -: Dyslipidemia -: CAD -: Gallbladder removal - Social History Smoking Status: Former smoker Alcohol use: Yes CD- Drugs: No Caffeine use: Yes Place of Residence: Home Review of Systems General: Unremarkable Eyes: Unremarkable ENT: Unremarkable Respiratory: Shortness of Breath Cardiovascular: Unremarkable Gastrointestinal: Unremarkable Genitourinary: Unremarkable Musculoskeletal: Pedal edema, Other (BLE edema) Integumentary: Unremarkable Neurological: Unremarkable Lymphatics: Unremarkable Physical Examination - Physical Exam General: Alert, In no apparent distress, Oriented x3 HEENT: Atraumatic, PERRLA, Mucous membr. moist/pink, EOMI, Sclerae nonicteric Neck: Supple, 2+ carotid pulse no bruit, No LAD, Without JVD or thyroid abnormality Respiratory: Clear to auscultation bilaterally, Diminished Cardiovascular: Normal S1 S2, Edema, Irregular heart rate/rhythm Capillary refill: <2 Seconds Gastrointestinal: Normal bowel sounds, Soft and benign, No tenderness Musculoskeletal: Swelling, Tenderness Integumentary: No rashes, No breakdown, No significant lesion, No erythema, No warmth Neurological: Normal gait, Normal speech, Normal tone, Normal affect Lymphatics: No axilla or inguinal lymphadenopathy - Studies Laboratory Data (last 24 hrs) 01/20/22 11:54: WBC 9.70, Hgb 12.8 L, Hct 38.4 L, Plt Count 539 H 01/20/22 11:54: Sodium 137, Potassium 3.7, BUN 23 H, Creatinine 1.22, Glucose 166 H, Magnesium 1.8 Assessment and Plan - Plan --Acute on chronic systolic or diastolic CHF exacerbation. Echocardiogram pending to assess LV\valvular function and wall motion. Cardiology consulted. Continue diuresis with Lasix. Daily weight and strict I/O. Will await further recommendation from plumbers and top helpers --HLD. Continue statin --DM2. BS monitoring with sliding scale insulin. --Hypertension. Poorly controlled. Continue home medications and labetalol as needed --Atrial fibrillation. Continue warfarin -- CKD 2. Stable. We will continue to monitor renal functions. -- Hypomagnesemia. Replete as needed. --Anemia of chronic disease. H&H stable. We will continue to monitor hemoglobin and transfuse if less than 7.0. --Hx of CAD. Continue, Aspirin and statin --DVT prophylaxis with Warfarin Discharge Plan: Home Plan to discharge in: Greater than 2 days - Advance Directives Does patient have a Living Will: No Does patient have a Durable POA for Healthcare: No - Code Status/Comfort Care Code Status Assessed: Yes Physician Review: Patient Assessed, Agree with Above Assessment and Plan Critical Care: No
[2022-01-20] MEDS ORDERED: ASPIRIN 325 MG TAB ONE (16:21)
[2022-01-20] MEDS ORDERED: HOME MED 1 EA UNK (Calcium Carbonate [Calcium] 600 MG Tablet) PO SCH (17:00)
[2022-01-20] MEDS ORDERED: VITAMIN D 1000 UNIT TAB PO SCH (17:00)
[2022-01-20] MEDS ORDERED: CALCIUM CARBONATE 500 MG TAB PO SCH (17:00)
[2022-01-20] MEDS ORDERED: HOME MED 1 EA UNK (Cholecalciferol (Vitamin D3) [Vitamin D3] 1,000 UNIT Capsule) PO SCH (17:00)
[2022-01-20] MEDS: VITAMIN E 1000 UNIT PO SCH (17:00)
[2022-01-20 18:12] LABS: Magnesium 1.6 mg/dL (1.8-2.4)
[2022-01-20] MEDS: ASCORBIC ACID 500 MG TABLET PO SCH (18:27)
[2022-01-20] MEDS: FUROSEMIDE 40 MG/4 ML VIAL IV SCH (18:28)
[2022-01-20] MEDS: WARFARIN SODIUM 2.5 MG TAB PO SCH (18:28)
[2022-01-20] MEDS: VITAMIN B COMPLEX 1 CAP PO SCH (18:28)
[2022-01-20] MEDS: carvediloL 6.25 MG TAB PO SCH (19:54)
[2022-01-20] MEDS: ATORVASTATIN 80 MG TAB PO SCH (19:54)
[2022-01-20] MEDS ORDERED: HEPARIN 5000 UNIT/ML 1 ML VIAL SQ SCH (21:00)
[2022-01-20] MEDS: HOME MED 1 EA UNK (Cyclosporine [Restasis] Droperette) OPTH SCH (21:00)
[2022-01-20] MEDS ORDERED: HOME MED 1 EA UNK (Fish Oil/Dha/Epa [Fish Oil 1,200 Mg Fish Oil] Capsule) PO SCH (21:00)
[2022-01-20] MEDS ORDERED: DOCOSAHEXANOIC AC/EPA 1000 MG PO SCH (21:00)
[2022-01-21] MEDS ORDERED: D50W 25 GM/50 ML SYRINGE IV PRN (01:43)
[2022-01-21] MEDS ORDERED: GLUCAGON 1 MG/VIAL IM PRN (01:43)
[2022-01-21] MEDS ORDERED: D10W 125 ML IV PRN (01:50)
[2022-01-21 03:50] LABS: Absolute Lymphocytes (CBC) 1.6 K/uL (0.7-4.9); Hematocrit 37.8 % (39.6-49.0); Lymphocytes % 19.1 % (15.3-44.8); MPV 7.3 fL (7.6-11.3); RBC Red Blood Cell Count 4.34 M/uL (4.33-5.43)
[2022-01-21 03:56] LABS: Protime INR 2.29
[2022-01-21 04:04] LABS: Potassium 3.2 mmol/L (3.5-5.1)
[2022-01-21 06:49] LABS: Magnesium 1.7 mg/dL (1.8-2.4)
[2022-01-21] MEDS ORDERED: POTASSIUM 25 MEQ EFFERV TAB PO ONE (07:00)
[2022-01-21] MEDS: INSULIN -REGULAR HUMAN 50 UNIT/0.5 ML ML SQ SCH ×4 (07:30→20:11)
[2022-01-21] MEDS: carvediloL 6.25 MG TAB PO SCH ×2 (08:09→20:10)
[2022-01-21] MEDS: FUROSEMIDE 40 MG/4 ML VIAL IV SCH ×2 (08:09→17:24)
[2022-01-21] MEDS: lisinopriL 20 MG TAB PO SCH (08:10)
[2022-01-21] MEDS: HOME MED 1 EA UNK (Cyclosporine [Restasis] Droperette) OPTH SCH ×2 (08:10→20:12)
[2022-01-21] MEDS: CLOPIDOGREL 75 MG TABLET PO SCH (08:10)
[2022-01-21] MEDS: ASPIRIN 325 MG TAB PO SCH (08:10)
[2022-01-21] MEDS: DIGOXIN 0.125 MG TABLET PO SCH (08:10)
[2022-01-21] MEDS: HOME MED 1 EA UNK (Ubidecarenone/Vit E Acet [Co Q-10 100 Mg Softgel] Capsule) PO SCH (08:11)
[2022-01-21] MEDS ORDERED: hydroCHLOROthiazide 12.5 MG CAP PO SCH (09:00)
[2022-01-21] MEDS ORDERED: MAGNESIUM SULFATE 1 gm IVPB 1 GM/100 ML BAG IV ONE (09:00)
[2022-01-21] MEDS ORDERED: POTASSIUM CL SA 10 MEQ TAB PO ONE (12:54)
--- NOTE | 2022-01-21 14:33 | EKG ---
Test Date: 2022-01-20 Test Time: 12:19:17 Manager Outreach: KV MEASUREMENT RESULTS: Intervals: Rate: 86 CO: QRSD: 130 QT: 396 QTc: 473 [place]: P: CO: QRS: -64 T: 78 INTERPRETIVE STATEMENTS: Atrial fibrillation with premature ventricular or aberrantly conducted complexes Left axis deviation Right bundle branch block Anteroseptal infarct, age undetermined Abnormal ECG Compared to ECG 01/20/2022 12:06:51 Ventricular premature complex(es) now present Myocardial infarct finding still present Electronically Signed On 01-21-22 14:30:25 CDT by Rodolfo Maurer
--- NOTE | 2022-01-21 14:33 | EKG ---
Test Date: 2022-01-20 Test Time: 12:06:51 Pile Trimmer: KV MEASUREMENT RESULTS: Intervals: Rate: 79 VT: QRSD: 126 QT: 388 QTc: 444 [place]: P: VT: QRS: -65 T: 84 INTERPRETIVE STATEMENTS: Atrial fibrillation Left axis deviation Right bundle branch block Anteroseptal infarct, age undetermined Abnormal ECG Compared to ECG 10/15/2020 15:21:36 Left-axis deviation now present Left anterior fascicular block no longer present Bifascicular block no longer present Myocardial infarct finding still present Electronically Signed On 01-21-22 14:30:29 CDT by Rodolfo Maurer
[2022-01-21] MEDS: WARFARIN SODIUM 2.5 MG TAB PO SCH (17:23)
--- NOTE | 2022-01-21 18:02 | P.PN ---
Subjective Date of Service: 01/21/22 Chief Complaint: SOB, BLE edema No acute events overnight. He reports that he has been making good urine output with the furosemide. He feels that his shortness of breath is much improved compared to yesterday. He reports persistent lower extremity edema. Review of Systems 10-point ROS is otherwise unremarkable Respiratory: Shortness of Breath Cardiovascular: Edema Physical Examination - Vital Signs Temperature: 97.3 F Blood Pressure: 146/80 Pulse: 89 Respirations: 14 Pulse Ox (%): 96 - Physical Exam General: Alert, In no apparent distress, Oriented x3 HEENT: Atraumatic, PERRLA, Mucous membr. moist/pink, EOMI, Sclerae nonicteric Neck: Supple, JVD distended (minimally) Respiratory: Diminished, Crackles/rales (bibasilar) Cardiovascular: Regular rate/rhythm, Normal S1 S2, No gallops, No rubs, No murmurs, Edema (2+ bilateral) Gastrointestinal: Normal bowel sounds, Soft and benign, Non-distended, No tenderness, No rebound, No guarding Musculoskeletal: No clubbing Integumentary: No rashes Neurological: Normal speech, Cranial nerves 3-12 intact, Normal affect Assessment And Plan - Plan # Acute on Chronic Decompensated Congestive Heart Failure (Unknown Ejection Fraction) - Consult Cardiology and spoke with Dr. Maurer - recommendations appreciated - Ordered transthoracic echocardiogram - Diuresis with IV furosemide for today - Continue home carvedilol, lisinopril - Daily weights - Strict I/O - Cardiac diet, 1.5 L fluid restriction, 2 g Na restriction # Chronic Atrial Fibrillation - For rate control - continue carvedilol, digoxin - For anticoagulation - continue warfarin # Coronary Artery Disease # Hypertension # Hyperlipidemia - Continue home aspirin, atorvastatin, clopidogrel, lisinopril # Type II Diabetes Mellitus - Correction scale insulin David Corona M.D.
--- NOTE | 2022-01-21 18:53 | CON ---
Date of Consultation: 01/21/2022 Reason For Consultation: Acute heart failure, atrial fibrillation. History Of Present Illness: A 66-year-old male, history of atrial fibrillation, dyslipidemia, hypert ension, diabetes, who presented and seen in my office with significant shortness of breath on minimal exertion, even at rest with significant lower extremity edema and orthopnea. He was in AFib with ra pid ventricle response. Sent to the emergency room for admission for acute heart failure exacerbatio n and AFib. The patient was admitted and started on IV Lasix, and edema is much better. Past Medical History: As outlined above in the HPI. Medications: Refer to reconciliation sheet for detailed list. Allergies: NO KNOWN DRUG ALLERGIES. Family History: No premature coronary artery disease or cancer. Social History: He is an ex-smoker and drinks alcohol on a regular basis. Does not use any drugs. Review of Systems: All systems reviewed and they were negative except what mentioned in HPI. Physical Examination: Vital Signs: Reviewed. Head and Neck: Pupils are equal, reactive to light. Intact eye movements. Positive JVD. No cervic al lymphadenopathy. Neck is supple. Thyroid is not enlarged. Lungs: Crackles in both bases. No accessory muscle use or muscle retraction. Heart: Irregularly irregular. No extra sounds. Abdomen: Soft, nontender. Bowel sounds positive. No organomegaly. No masses or hernia. No rigidi ty or rebound. Extremities: No clubbing or cyanosis. Intact pulses. 3+ pedal edema. Skin: No rash. Neurologic: Alert, awake, oriented x3. No acute focal deficits appreciated. Investigations: Troponins x2 are negative. His creatinine is 1.1 today, potassium 3.2, and sodium i s 138. Assessment And Recommendations: 1.Acute on chronic congestive heart failure exacerbation. Continue Lasix 40 mg IV q.12 hours. Cinthia tor BUN, creatinine, electrolytes. Obtain echocardiogram. Cardiac enzymes are negative. 2.Atrial fibrillation with rapid ventricular response. He is on Coreg. Continue current management . Discontinue digoxin and titrate beta-michell up if need be and obtain echo to evaluate ejection fr action. 3.Dyslipidemia. Continue statin. SR/MODL Voice ID: [id number] Report ID: [id number]
[2022-01-21] MEDS: ATORVASTATIN 80 MG TAB PO SCH (20:10)
[2022-01-22] MEDS: HYDROCODONE/APAP 5/325 MG TAB PO PRN ×2 (03:39→09:44)
[2022-01-22 04:09] LABS: Protime INR 2.05
[2022-01-22 04:24] LABS: Magnesium 1.6 mg/dL (1.8-2.4); Potassium 3.3 mmol/L (3.5-5.1)
[2022-01-22] MEDS: INSULIN -REGULAR HUMAN 50 UNIT/0.5 ML ML SQ SCH ×4 (07:30→19:52)
[2022-01-22] MEDS: DIGOXIN 0.125 MG TABLET PO SCH (08:06)
[2022-01-22] MEDS: ASPIRIN 325 MG TAB PO SCH (08:06)
[2022-01-22] MEDS: lisinopriL 20 MG TAB PO SCH (08:07)
[2022-01-22] MEDS: CLOPIDOGREL 75 MG TABLET PO SCH (08:07)
[2022-01-22] MEDS: carvediloL 6.25 MG TAB PO SCH ×2 (08:07→19:47)
[2022-01-22] MEDS: FUROSEMIDE 40 MG/4 ML VIAL IV SCH ×2 (08:07→16:42)
[2022-01-22] MEDS: HOME MED 1 EA UNK (Ubidecarenone/Vit E Acet [Co Q-10 100 Mg Softgel] Capsule) PO SCH (08:08)
[2022-01-22] MEDS: HOME MED 1 EA UNK (Cyclosporine [Restasis] Droperette) OPTH SCH ×2 (08:08→21:00)
[2022-01-22] MEDS ORDERED: MAGNESIUM SULFATE 1 gm IVPB 1 GM/100 ML BAG IV ONE (09:00)
[2022-01-22] MEDS ORDERED: POTASSIUM CL SA 10 MEQ TAB PO ONE (09:00)
[2022-01-22] MEDS: VITAMIN B COMPLEX 1 CAP PO SCH (16:42)
[2022-01-22] MEDS: ASCORBIC ACID 500 MG TABLET PO SCH (16:42)
[2022-01-22] MEDS: WARFARIN SODIUM 2.5 MG TAB PO SCH (16:42)
[2022-01-22] MEDS: VITAMIN E 1000 UNIT PO SCH (16:43)
--- NOTE | 2022-01-22 18:07 | P.PN ---
Subjective Date of Service: 01/22/22 Chief Complaint: SOB, BLE edema No acute events overnight. He reports that his shortness of breath is improving. His net I/O is -1.7 L since admission. He denies chest pain or palpitations. Lower extremity edema is still present. Reviewed his case with Dr. Maurer, he feels that he would benefit from an additional day or two of IV diuresis. Review of Systems 10-point ROS is otherwise unremarkable Respiratory: Shortness of Breath (minimal) Cardiovascular: Edema Physical Examination - Vital Signs Temperature: 97.7 F Blood Pressure: 109/68 Pulse: 86 Respirations: 18 Pulse Ox (%): 95 Assessment And Plan - Plan # Acute on Chronic Decompensated Congestive Heart Failure (Unknown Ejection Fraction) - Consult Cardiology and spoke with Dr. Maurer - recommendations appreciated - Transthoracic echocardiogram = pending - Diuresis with IV furosemide for today - Continue home carvedilol, lisinopril - Daily weights - Strict I/O = -1.7 L this far - Cardiac diet, 1.5 L fluid restriction, 2 g Na restriction # Chronic Atrial Fibrillation - For rate control - continue carvedilol, digoxin - For anticoagulation - continue warfarin # Coronary Artery Disease # Hypertension # Hyperlipidemia - Continue home aspirin, atorvastatin, clopidogrel, lisinopril # Type II Diabetes Mellitus - Correction scale insulin David Corona M.D.
[2022-01-22] MEDS: ATORVASTATIN 80 MG TAB PO SCH (19:48)
--- NOTE | 2022-01-23 01:32 | PN ---
Date of Progress Note: 01/22/2022 Subjective: Seen by bedside. Continues to improve and breathing is better. Lower extremity edema i s better. Review of Systems: No chest pain. Still has some orthopnea and lower extremity edema and shortness of breath on exertio n. No nausea, vomiting, diarrhea, or abdominal pain. No dysuria, polyuria, or urinary urgency. No skin rash. All other systems are reviewed and are negative. Physical Examination: Vital Signs: Temperature is 97.8, pulse is 85, breathing at 19, blood pressure is 115/65, saturating 97% on room air. General: A pleasant middle-aged male, in no apparent distress. Head And Neck: Pupils are equal and reactive to light. Intact eye movements. Mild JVD elevation. Lungs: Crackles in both bases. No accessory muscle use or muscle retraction. Heart: Irregularly irregular. No extra sounds. Abdomen: Soft, nontender. Bowel sounds positive. No organomegaly. No masses or hernia. No rigidi ty or rebound. Extremities: No clubbing or cyanosis. Intact pulses. Positive edema bilaterally with improvement. Neurologic: Alert, awake, and oriented x3. No acute focal deficits appreciated. Investigations: BUN 18, creatinine 1.1 and hemoglobin is 12.5. Assessment And Recommendation: 1.[id number] congestive heart failure exacerbation. Await on the echo to evaluate ejection fr action. Meanwhile, continue diuresis using IV Lasix. Monitor BUN, creatinine, and electrolytes. 2.Atrial fibrillation, rate is controlled and currently is on warfarin. Check INR to be therapeutic between 2 and 3. Continue digoxin and Coreg and start him on metoprolol 50 mg by mouth twice a day. 3.Hyperlipidemia. Continue statin. SR/MODL Voice ID: [id number] Report ID: [id number]
[2022-01-23 04:01] LABS: Protime INR 1.65
[2022-01-23 04:09] LABS: Magnesium 1.9 mg/dL (1.8-2.4); Potassium 4.7 mmol/L (3.5-5.1)
[2022-01-23] MEDS: INSULIN -REGULAR HUMAN 50 UNIT/0.5 ML ML SQ SCH ×4 (07:30→20:53)
[2022-01-23] MEDS: lisinopriL 20 MG TAB PO SCH (08:51)
[2022-01-23] MEDS: ASPIRIN 325 MG TAB PO SCH (08:52)
[2022-01-23] MEDS: FUROSEMIDE 40 MG/4 ML VIAL IV SCH ×2 (08:52→16:35)
[2022-01-23] MEDS: DIGOXIN 0.125 MG TABLET PO SCH (08:52)
[2022-01-23] MEDS: HOME MED 1 EA UNK (Cyclosporine [Restasis] Droperette) OPTH SCH ×2 (08:52→20:52)
[2022-01-23] MEDS: carvediloL 6.25 MG TAB PO SCH ×2 (08:52→20:51)
[2022-01-23] MEDS: CLOPIDOGREL 75 MG TABLET PO SCH (08:52)
[2022-01-23] MEDS: HOME MED 1 EA UNK (Ubidecarenone/Vit E Acet [Co Q-10 100 Mg Softgel] Capsule) PO SCH (08:53)
--- NOTE | 2022-01-23 14:42 | P.PN ---
Subjective Date of Service: 01/23/22 Chief Complaint: SOB, BLE edema No acute events overnight. He reports that his shortness of breath has completely resolved. We ambulated around the nursing station and he reported minimal shortness of breath with exertion. Reviewed his case with Dr. Maurer, he feels that he would benefit from another day of IV diuresis. Review of Systems 10-point ROS is otherwise unremarkable Respiratory: SOB with Excertion (minimal) Cardiovascular: Edema Physical Examination - Vital Signs Temperature: 97.8 F Blood Pressure: 109/68 Pulse: 88 Respirations: 16 Pulse Ox (%): 96 Assessment And Plan - Plan - Physical Exam General: Alert, In no apparent distress, Oriented x3 HEENT: Atraumatic, PERRLA, Mucous membr. moist/pink, EOMI, Sclerae nonicteric Neck: Supple, JVD minimally distended Respiratory: Diminished, Crackles/rales (bibasilar) Cardiovascular: Regular rate/rhythm, Normal S1 S2, No gallops, No rubs, No murmurs, Edema (1+ bilateral) Gastrointestinal: Normal bowel sounds, Soft and benign, Non-distended, No tenderness, No rebound, No guarding Musculoskeletal: No clubbing Integumentary: No rashes Neurological: Normal speech, Cranial nerves 3-12 intact, Normal affect # Acute on Chronic Decompensated Congestive Heart Failure (Unknown Ejection Fraction) - Consult Cardiology and spoke with Dr. Maurer - recommendations appreciated - Transthoracic echocardiogram = pending - Diuresis with IV furosemide for today - Plan to switch to PO in 1-2 days - Continue home carvedilol, lisinopril - Daily weights - Strict I/O = -1.7 L this far - Cardiac diet, 1.5 L fluid restriction, 2 g Na restriction # Chronic Atrial Fibrillation - For rate control - continue carvedilol, digoxin - For anticoagulation - continue warfarin # Coronary Artery Disease # Hypertension # Hyperlipidemia - Continue home aspirin, atorvastatin, clopidogrel, lisinopril # Type II Diabetes Mellitus - Correction scale insulin David Corona M.D.
--- NOTE | 2022-01-23 16:14 | PN ---
Date of Progress Note: 01/23/2022 Subjective: Seen by bedside, improving gradually, but still is with shortness of breath and orthopne a and lower extremity edema. Review of Systems: No chest pain. Has the shortness of breath on exertion. No nausea, vomiting, or diarrhea. No abdom inal pain. No dysuria, polyuria, or urinary urgency. All other systems were reviewed and they were negative. Physical Examination: Vital Signs: Temperature is 97.6, pulse 86, breathing at 14, blood pressure 113/64, saturating 97% o n room air. General: Pleasant elderly male, in no apparent distress. Head and Neck: Pupils are equal, reactive to light. Intact eye movements. Mild JVD elevation. No cervical lymphadenopathy. Neck is supple. Thyroid is not enlarged. Lungs: Crackles in both bases. No accessory muscle use or muscle retraction. Heart: Irregularly irregular. No extra sounds. Abdomen: Soft and nontender. Bowel sounds positive. No organomegaly. No masses or hernia. No rig idity or rebound. Extremities: No clubbing or cyanosis. Intact pulses. Positive edema. Skin: No rash. Neurologic: Alert, awake, and oriented x3. No acute focal deficits appreciated. Investigations: BUN is 21, creatinine 1.19, and his hemoglobin 12.5. Assessment And Recommendation: 1.Acute on chronic congestive heart failure exacerbation. Still needs more diuresis. Continue Lasi x. Monitor BUN, creatinine, electrolytes. 2.Atrial fibrillation, rate is controlled. Continue current therapy. SR/MODL Voice ID: [id number] Report ID: [id number]
[2022-01-23] MEDS: WARFARIN SODIUM 2.5 MG TAB PO SCH (16:34)
[2022-01-23 17:30] VITALS: BMI 22.6
[2022-01-23] MEDS: ATORVASTATIN 80 MG TAB PO SCH (20:51)
[2022-01-24 04:22] LABS: Protime INR 1.35
[2022-01-24] MEDS: INSULIN -REGULAR HUMAN 50 UNIT/0.5 ML ML SQ SCH ×4 (07:30→21:00)
[2022-01-24] MEDS: carvediloL 6.25 MG TAB PO SCH ×2 (08:55→20:55)
[2022-01-24] MEDS: FUROSEMIDE 40 MG/4 ML VIAL IV SCH (08:55)
[2022-01-24] MEDS: HOME MED 1 EA UNK (Ubidecarenone/Vit E Acet [Co Q-10 100 Mg Softgel] Capsule) PO SCH (08:55)
[2022-01-24] MEDS: HOME MED 1 EA UNK (Cyclosporine [Restasis] Droperette) OPTH SCH ×2 (08:55→20:57)
[2022-01-24] MEDS: DIGOXIN 0.125 MG TABLET PO SCH (08:55)
[2022-01-24] MEDS: ASPIRIN 325 MG TAB PO SCH (08:55)
[2022-01-24] MEDS: lisinopriL 20 MG TAB PO SCH (08:55)
[2022-01-24] MEDS: CLOPIDOGREL 75 MG TABLET PO SCH (08:59)
[2022-01-24] MEDS ORDERED: ACETAMINOPHEN 325 MG TABLET PO PRN (12:11)
--- NOTE | 2022-01-24 16:15 | P.PN ---
Subjective Date of Service: 01/24/22 Chief Complaint: SOB, BLE edema No acute events overnight. He continues to have mild shortness of breath with exertion. His volume status appears to be improving gradually. He is eager to be discharged home, but would like to speak with Cardiology first. Review of Systems 10-point ROS is otherwise unremarkable Respiratory: SOB with Excertion Physical Examination - Vital Signs Temperature: 97.4 F Blood Pressure: 106/67 Pulse: 92 Respirations: 14 Pulse Ox (%): 99 Assessment And Plan - Plan - Physical Exam General: Alert, In no apparent distress, Oriented x3 HEENT: Atraumatic, PERRLA, Mucous membr. moist/pink, EOMI, Sclerae nonicteric Neck: Supple, JVD minimally distended Respiratory: Diminished, Crackles/rales (bibasilar) Cardiovascular: Regular rate/rhythm, Normal S1 S2, No gallops, No rubs, No murmurs, Edema (1+ bilateral) Gastrointestinal: Normal bowel sounds, Soft and benign, Non-distended, No tenderness, No rebound, No guarding Musculoskeletal: No clubbing Integumentary: No rashes Neurological: Normal speech, Cranial nerves 3-12 intact, Normal affect # Acute on Chronic Decompensated Congestive Heart Failure (Unknown Ejection Fraction) - Consult Cardiology and spoke with Dr. Maurer - recommendations appreciated - Transthoracic echocardiogram = pending - Diuresis with IV furosemide for today - Plan to switch to PO tomorrow - Continue home carvedilol, lisinopril - Daily weights - Strict I/O = -1.7 L this far - Cardiac diet, 1.5 L fluid restriction, 2 g Na restriction # Chronic Atrial Fibrillation - For rate control - continue carvedilol, digoxin - For anticoagulation - continue warfarin # Coronary Artery Disease # Hypertension # Hyperlipidemia - Continue home aspirin, atorvastatin, clopidogrel, lisinopril # Type II Diabetes Mellitus - Correction scale insulin David Corona M.D.
[2022-01-24] MEDS ORDERED: WARFARIN SODIUM 1 MG TAB PO SCH (17:00)
[2022-01-24] MEDS ORDERED: WARFARIN SODIUM 2.5 MG TAB PO SCH (17:00)
[2022-01-24] MEDS: ATORVASTATIN 80 MG TAB PO SCH (20:55)
[2022-01-25 06:12] LABS: Protime INR 1.37
[2022-01-25 06:23] LABS: Magnesium 1.9 mg/dL (1.8-2.4); Potassium 3.7 mmol/L (3.5-5.1)
--- NOTE | 2022-01-25 07:29 | ECHO ---
HEIGHT: 5 ft 10 in WEIGHT: 149 lb 6 oz DATE OF STUDY: 01/22/[address]: Mireya Mccann 2-DIMENSIONAL: YES M.MODE: YES DOPPLER: YES COLOR FLOW: YES TDS: PORTABLE: YES DEFINITY: BUBBLE STUDY: DIAGNOSIS: CONGESTIVE HEART FAILURE EXACERBATION CARDIAC HISTORY: CATHERIZATION: SURGERY: PROSTHETIC VALVE: PACEMAKER: MEASUREMENTS (cm) DIASTOLIC (NORMALS) SYSTOLIC (NORMALS) IVSd 1.0 (0.6-1.2) LA Diam 4.3 (1.9-4.0) LVEF 47% LVIDd 4.8 (3.5-5.7) LVIDs 3.6 (2.0-3.5) %FS 24% LVPWd 1.3 (0.6-1.2) Ao Diam 2.6 (2.0-3.7) 2 DIMENSIONAL ASSESSMENT: RIGHT ATRIUM: NORMAL LEFT ATRIUM: ENLARGED RIGHT VENTRICLE: NORMAL LEFT VENTRICLE: ATRIAL FIBRILLATION TRICUSPID VALVE: MILD TRICUSPID REGURGITATION MITRAL VALVE: NORMAL PULMONIC VALVE: NORMAL AORTIC VALVE: CALCIFIED NO AORTIC STENOSIS PERICARDIAL EFFUSION: NONE AORTIC ROOT: NORMAL LEFT VENTRICULAR WALL MOTION: ATRIAL FIBRILLATION DOPPLER/COLOR FLOW: MILD TRICUSPID REGURGITATION COMMENTS: ATRIAL FIBRILLATION WITH VARIABLE EJECTION FRACTION 45-55%. MILD TRICUSPID REGURGITATION. DIASTOLIC DYSFUNCTION. MILD TRICUSPID REGURGITATION. LEFT ATRIAL ENLARGEMENT. TECHNOLOGIST: CHIO OSULLIVAN
[2022-01-25] MEDS: INSULIN -REGULAR HUMAN 50 UNIT/0.5 ML ML SQ SCH (07:30)
[2022-01-25] MEDS: HOME MED 1 EA UNK (Cyclosporine [Restasis] Droperette) OPTH SCH (09:00)
[2022-01-25] MEDS: HOME MED 1 EA UNK (Ubidecarenone/Vit E Acet [Co Q-10 100 Mg Softgel] Capsule) PO SCH (09:00)
[2022-01-25] MEDS ORDERED: POTASSIUM CL SA 10 MEQ TAB PO ONE (09:00)
[2022-01-25] MEDS: carvediloL 6.25 MG TAB PO SCH (09:43)
[2022-01-25] MEDS: DIGOXIN 0.125 MG TABLET PO SCH (09:44)
[2022-01-25] MEDS: lisinopriL 20 MG TAB PO SCH (09:44)
[2022-01-25] MEDS: ASPIRIN 325 MG TAB PO SCH (09:44)
[2022-01-25] MEDS: CLOPIDOGREL 75 MG TABLET PO SCH (09:45)
[2022-01-25 10:03] VITALS: O2SAT 95
--- NOTE | 2022-01-25 15:51 | P.DS ---
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 Patient reported that his heart rate was elevated. Patient denies any other signs or symptoms. Symptoms are aggravated or relieved by nothing. Patient indicated that he followed up with his liquid compounder and was referred to the hospital for medical management. Patient decided to present to the hospital as directed. Hospital Course: Patient has done well during hospitalization. Patient clinical symptoms are improving. Patient was diuresed extensively. Cardiology is okay with patient discharging on Lasix 40 mg daily. Potassium supplementation to go along with it. Patient will follow with cardiology for work release. Patient is stable for discharge with outpatient follow-up. Vital Signs/Physical Exam: Temp Pulse Resp BP Pulse Ox 98.0 F 79 16 127/75 100 01/25/22 12:00 01/25/22 12:00 01/25/22 12:00 01/25/22 12:00 01/25/22 12:00 General: Alert, In no apparent distress, Oriented x3 Laboratory Data at Discharge: WBC 8.20 K/uL (4.3-10.9) 01/21/22 03:09 Hgb 12.5 g/dL (13.6-17.9) L 01/21/22 03:09 Hct 37.8 % (39.6-49.0) L 01/21/22 03:09 Plt Count 460 K/uL (152-406) H 01/21/22 03:09 PT 15.1 SECONDS (9.5-12.5) H 01/25/22 05:35 INR 1.37 01/25/22 05:35 Sodium 134 mmol/L (136-145) L 01/25/22 05:35 Potassium 3.7 mmol/L (3.5-5.1) 01/25/22 05:35 BUN 28 mg/dL (7-18) H 01/25/22 05:35 Creatinine 1.23 mg/dL (0.55-1.3) 01/25/22 05:35 Glucose 128 mg/dL (74-106) H 01/25/22 05:35 Phosphorus 3.0 mg/dL (2.5-4.9) 01/20/22 17:06 Magnesium 1.9 mg/dL (1.8-2.4) 01/25/22 05:35 Home Medications: Ascorbic Acid [Vitamin C*] 500 mg PO M,W,F 03/29/18 Calcium Carbonate [Calcium] 600 mg PO M,W,F 03/29/18 Cholecalciferol (Vitamin D3) [Vitamin D3] 1,000 unit PO M,W,F 03/29/18 Cyclosporine [Restasis] 1 drop EACH EYE BID 03/29/18 Fish Oil/Dha/Epa [Fish Oil 1,200 mg Fish Oil] 2 each PO BID 03/29/18 Glimepiride [Amaryl*] 2 mg PO DAILY 03/29/18 Metformin HCl [Glucophage*] 500 mg PO BIDWM 03/29/18 Ubidecarenone/Vit E Acet [Co Q-10 100 mg Softgel] 1 each PO DAILY 03/29/18 Vitamin B Complex [Vitamin B Complex*] 1 cap PO M,W,F 03/29/18 Vitamin E (Dl,Tocopheryl Acet) [Vitamin E] 1,000 unit PO M,W,F 03/29/18 Warfarin Sodium [Coumadin*] 2.5 mg PO DAILY 5 PM 03/29/18 carvediloL [Coreg*] 6.25 mg PO BID 03/29/18 Atorvastatin Calcium [Lipitor] 80 mg PO BEDTIME #30 tab 07/29/18 Clopidogrel Bisulfate [Plavix*] 75 mg PO DAILY #30 tablet 07/29/18 Digoxin [Lanoxin*] 0.125 mg PO DAILY tab 07/29/18 lisinopriL [Prinivil*] 20 mg PO DAILY tab 07/29/18 Furosemide 40 mg PO DAILY #30 tab 01/25/22 Potassium Chloride [K-Dur] 10 meq PO DAILY #30 tab 01/25/22 Potassium Chloride [K-Dur] 10 meq PO DAILY #30 tab 01/25/22 New Medications: Furosemide 40 mg PO DAILY #30 tab Potassium Chloride [K-Dur] 10 meq PO DAILY #30 tab Potassium Chloride [K-Dur] 10 meq PO DAILY #30 tab Physician Discharge Instructions: 1. Please schedule a follow-up appointment with your PCP (Dr. Oliveira) in 3-5 days - Please have your INR rechecked at this appointment 2. Please schedule a follow-up appointment with Cardiology (Dr. Maurer) in 5-7 days -DC IV and DC home -Follow-up with PCP in 1 to 2 weeks -Follow-up with Cardiology in 1 to 2 weeks -Please call Dr. Duggan at [phone] if any questions regarding hospital stay -Please call nursing station at [phone] if any nursing or medication questions -Return to the emergency room if symptoms worsen Diet: AHA Activity: Ad rogelio Followup: Rafael Oliveira, [Primary Care Provider] - Rodolfo Maurer MD [ACTIVE - CAN ADMIT] - Time spent managing pt's care (in minutes): 35
[2022-01-25 16:37] VITALS: BP 136/78; TEMP 97.5
--- NOTE | 2022-01-25 20:27 | PN ---
Date of Progress Note: 01/25/2022 Subjective: Seen by bedside, doing clinically well. No shortness of breath. Review of Systems: No chest pain, shortness of breath, orthopnea, cough. No nausea, vomiting, diarrhea. No abdominal p ain. No dysuria, polyuria, or urinary urgency. No skin rash. All other systems reviewed and they a re negative. Physical Examination: Vital Signs: Reviewed. Head and Neck: Pupils are equal, reactive to light. Intact eye movements. No JVD. No cervical lym phadenopathy. Neck: Supple. Thyroid is not enlarged. Lungs: Clear to auscultation bilaterally. No rhonchi, rales, or crackles. No accessory muscle use. Heart: Irregularly irregular. No extra sounds. Abdomen: Soft, nontender. Bowel sounds positive. No organomegaly. No masses or hernia. No rigidi ty or rebound. Extremities: No clubbing, cyanosis. Intact pulses. No edema. Skin: No rash. Neurologic: Alert, awake, oriented x3. No acute focal deficits appreciated. Investigations: BUN is 28, creatinine 1.23. Assessment And Recommendation: 1.Acute on chronic congestive heart failure exacerbation. Now, he appears to be euvolemic. The pat ient can be discharged on Lasix 40 mg daily. Avoid salt and follow up with me in the office in 1 ike castaneda 2.Atrial fibrillation, rate is controlled. Continue current management and we will follow up the patient in the office and have his INR checked on a regular basi s. SR/MODL Voice ID: [id number] Report ID: [id number]
== END 2022-01-25 17:42 | disposition home or self-care (01) | DRG 291 ==
LOC: ER 11:02 → ERHOLD 13:21 → 2ND 17:27
PROVIDERS: ADMIT Internal Medicine; ATTEND Hospitalist
DX: I13.0 Hypertensive heart and chronic kidney disease with heart failure and stage 1 through stage 4 chronic kidney disease, or unspecified chronic kidney disease (principal); I50.23 Acute on chronic systolic (congestive) heart failure; I48.20 Chronic atrial fibrillation, unspecified; N18.2 Chronic kidney disease, stage 2 (mild); E11.22 Type 2 diabetes mellitus with diabetic chronic kidney disease; D63.1 Anemia in chronic kidney disease; E78.5 Hyperlipidemia, unspecified; E83.42 Hypomagnesemia; I25.10 Atherosclerotic heart disease of native coronary artery without angina pectoris; Z95.5 Presence of coronary angioplasty implant and graft; Z90.49 Acquired absence of other specified parts of digestive tract; Z79.82 Long term (current) use of aspirin; Z79.01 Long term (current) use of anticoagulants; Z79.02 Long term (current) use of antithrombotics/antiplatelets; Z79.899 Other long term (current) drug therapy; Z87.891 Personal history of nicotine dependence; Z20.822 Contact with and (suspected) exposure to COVID-19
CPT/HCPCS: 36415; 71045; 80048; 82947; 83735; 83880; 84100; 84132; 84484; 85025; 85610; 87811; 93005; 93306; 96374; 99285; J1940; J3475

== ENCOUNTER 2022-12-11 07:12 | Emergency (ER) | payer MEDICARE, OTHER ==
--- OUTSIDE RECORDS SUMMARY | 2022-12-11 07:18 | XMS REPORT | Continuity of Care Document ---
:1955 Author Organization [facility] t Address [address] [place] [address] [place] [id number] Care Team Providers Name Role Phone Asked, No Pcp Primary Care Physician Unavailable Rafael Oliveira Attending Clinician Unavailable KENNY MINOR Attending Clinician Unavailable Victor Hugo AUGUSTIN, Amy Attending Clinician Kenny Minor MD Attending Clinician [phone] Cb Salcedo MD Attending Clinician CB SALCEDO Attending Clinician Unavailable Sid Sorensen MD Attending Clinician Murali Duggan Attending Clinician KENNY MINOR Admitting Clinician Unavailable Payers Payer Name Policy Type Policy Number Effective Date Expiration Date S luli [facility] [id number] 2021 (MEDICARE 00:00:00 REPLACEMENT HMO) ENTRUST CLAIMS [id number] 2014 Common TEAM 00:00:00 [facility] GALAXY PPO [id number] 2014 00:00:00 90 DEGREE [id number] 2014 BENEFITS/ENTRUST 00:00:00 Problems Condition Condition Condition Status Onset Resolution Last Treating Co mments Source Name Details Category Date Date Treatment Clinician Date CKD CKD Disease Active [facility]ronic (chronic 04-03 [facility] kidney kidney 00:00: Medical disease) disease) 00 [place] stage 2, stage 2, GFR 60-89 GFR 60-89 ml/min ml/min Left Left Disease Active [facility] carotid carotid 04-02 [facility] artery artery 00:00: Medical stenosis stenosis 00 Center Carotid Carotid Disease Active [facility] St stenosis, stenosis, 04-02 [place] s asymptomat asymptomat 00:00: Me dical ic ic 00 [place] [id number] Chronic Problem Comm on combined Spirit systolic - [facility] and [facility] diastolic [facility] congestive Medica l heart Center failure [id number] Acute on Problem Com mon chronic Spirit combined - CHI systolic St and [facility] diastolic Medical congestive Center heart failure [id number] Congestive Problem Com mon heart Spirit failure, - [facility] unspecifie [facility] d HF [facility] chronicity Medica l , Center unspecifie d heart failure type Gout Gout Problem Common [facility] Allergic Allergic Problem Commo n rhinitis rhinitis [facility] Prostatic Prostatic Problem Com mon hypertroph hypertroph Sp miguel y y - CHI [facility] Chronic Chronic Problem Common back pain back pain Spir it [facility] [id number] Controlled Problem Co mmon type 2 Spirit diabetes - CHI mellitus [facility] complicati Medica l on, Center without long-term current use of insulin [id number] Noncomplia Problem Co mmon nce with Spirit dietary - CHI restrictio [facility] Gastroesop GERD Problem Commo n hageal without Spirit reflux esophagiti - CHI disease s [facility] [id number] CKD Problem Common (chronic Spirit kidney - CHI disease) stage 4, [facility] GFR 15-29 Medical ml/min Center Hyperlipid Hyperlipid Problem C ommon emia emia [facility] [id number] Proteinuri Problem Com mon a, Spirit unspecifie - CHI d type [facility] Laboratory Abnormal Problem Com mon test laboratory Spirit result test - CHI abnormal result [facility] [id number] Stented Problem Commo n coronary Spirit artery - [facility] [id number] Coronary Problem Com mon 107 artery Spirit disease - [facility] involving [place] [facility] coronary Medical artery of Center [place] heart, angina presence unspecifie d [id number] High blood Problem Co mmon monocyte Spirit count - [facility] Atrial Atrial Disease Recurre [facility] fibrillati fibrillati nce Magali kes on on Medical Center DM DM Disease Recurre [facility] (diabetes (diabetes [facility] s mellitus) mellitus) [facility] Hypertensi Hypertensi Disease Active C HI St on on [facility] Vision Vision Disease Active [facility] abnormalit abnormalit [facility] Coronary Coronary Disease Active [facility]I S t artery artery [facility] disease disease Medical Center History of History of Disease Active C HI St heart heart [facility] artery artery Medical stent stent Center Prostate Prostate Disease Active [facility]I S t troubles troubles [facility] Allergies, Adverse Reactions, Alerts Allergy Allergy Status Severity Reaction(s) Onset Inactive Treating Comm ents Source Name Type Date Date Clinician diphenhy diphenhy Active Runny nose, C ommon dramine dramine sneezing Spirit - [facility] NO KNOWN Allergy Active [facility] Family History Family Member Diagnosis Comments Start Date Stop Date Source Natural father Heart attack [facility] Natural father Hypertension [facility] Natural mother Diabetes [facility] Natural mother Hypertension [facility] Social History Social Habit Start Date Stop Date Quantity Comments Source History of Tobacco [facility] - Use [facility] Gender identity [facility] Sexual orientation [facility] Alcohol intake 2021-04-02 2021-04-02 .86 /d [facility] St Sabrina es 00:00:00 00:00:00 [facility] Tobacco use and 2021-01-28 2021-01-[address] [facility] exposure 00:00:00 00:00:00 [facility] Cigarettes smoked 2021-01-28 2021-01-[address] [facility] current (pack per 00:00:00 00:00:00 Medical Center day) - Reported Cigarette pack-years 2021-01-28 2021-01-[address] [facility] 00:00:00 00:00:[address] [facility] Sex Assigned At [address] Magali kes 00:00:00 00:00:00 Medical Center Smoking Status Start Date Stop Date Source Tobacco smoking [facility] consumption unknown Never Smoker [facility] Ce nter Former smoker 2021-01-28 00:00:00 2021-01-28 [facility] 00:00:00 Center Medications Ordered Filled Start Stop Current Ordering Indication Dosage Frequency Signature Comments Components Source Medication Medication Date Date Medication? Clinician (SIG) Name Name Metoprolol Metoprolol 2021-03 No 1{table BID Metoprolol Tartrate 25 Tartrate 25 1-04 t_with_ Tartrate MG MG 00:00: food} 25 MG 00 Metoprolol Metoprolol 2021-03 No 1{table BID Metoprolol Tartrate 25 Tartrate 25 1-04 t_with_ Tartrate MG MG 00:00: food} 25 MG 00 Metoprolol Metoprolol 2021-03 No 1{table BID Metoprolol Tartrate 25 Tartrate 25 1-04 t_with_ Tartrate MG MG 00:00: food} 25 MG 00 Metoprolol Metoprolol 2021-03 No 1{table BID Metoprolol Tartrate 25 Tartrate 25 1-04 t_with_ Tartrate MG MG 00:00: food} 25 MG 00 Metoprolol Metoprolol 2021-03 No 1{table BID Metoprolol Tartrate 25 Tartrate 25 1-04 t_with_ Tartrate MG MG 00:00: food} 25 MG 00 Metoprolol Metoprolol 2021-03 No 1{table BID Metoprolol Tartrate 25 Tartrate 25 1-04 t_with_ Tartrate MG MG 00:00: food} 25 MG atorvastati Yes 20mg QD Take [address] n (LIPITOR) 04-03 by mouth Luke s 20 MG 13:46: daily. Medical tablet 29 [place] allopurinoL Yes daily as [facility] I [facility] (ZYLOPRIM) 04-03 needed. [facility]ukes 300 MG 13:46: Medical tablet 29 [place] warfarin Yes 1 tablet [facility] t (COUMADIN, 04-03 Lukes JANTOVEN) 4 13:46: Medica l MG tablet 29 [place] atorvastati Yes 20mg QD Take [address] n (LIPITOR) 04-03 by mouth Luke s 20 MG 13:46: daily. Medical tablet 29 [place] allopurinoL Yes daily as [facility] I [facility] (ZYLOPRIM) 1-07 needed. Lukes 300 MG 13:46: Medical tablet 29 Center warfarin Yes 1 tablet [facility]I S t (COUMADIN, 04-03 [facility] 4 13:46: Medica l MG tablet 29 Center carvediloL 2021- No 3.125mg Q.5D Take 3.[address] (COREG) 04-03-07 mg by Lukes 3.125 MG 09:05: 00:00 mouth 2 Medic al tablet 45 :00 (two) Center times daily. aspirin 325 2021- No 325mg Q.5D Take [address] MG tablet 04-03- mg by Lukes 09:05: 00:00 mouth 2 Medical 45 :00 (two) Center times daily. docusate Yes Use as [facility] sodium 1-07 needed per Lukes (COLACE) 00:00: package Medica l 100 MG 00 instructio Center capsule ns, it is over-the-c ounter.. acetaminoph Yes Use as [facility] en 1-07 needed per Lukes (TYLENOL) 00:00: package Medic al 325 MG 00 instructio Center tablet ns for mild pain. It is over-the-c ounter. docusate Yes Use as [facility] sodium 1-07 needed per Lukes (COLACE) 00:00: package Medica l 100 MG 00 instructio Center capsule ns, it is over-the-c ounter.. acetaminoph Yes Use as [facility] en 1-07 needed per Lukes (TYLENOL) 00:00: package Medic al 325 MG 00 instructio Center tablet ns for mild pain. It is over-the-c ounter. metoprolol 2022- No 25mg Q.5D Take [address] tartrate -09 25-07 tablet (25 Luke s (LOPRESSOR) 00:00: 23:59 [...] . No further refills through my office. metoprolol 2022- No 25mg Q.5D Take 1 [...] HI St en-codeine 04-03 tablet by Sabrina perez (TYLENOL 00:00: 23:59 mouth Medical #3) 300-30 00 :00 every 6 Center mg per (six) tablet hours as needed (Severe acute postproced ural pain. Do not take same time as over-the-c ounter Tylenol dosing) for up to 7 days. Max Daily Amount: 4 tablets digoxin 2020-0 Yes QD daily. [facility] (LANOXIN) 9-07 [facility] 0.125 MG 00:00: Medical tablet 00 Center digoxin 2020-0 Yes QD daily. [facility] (LANOXIN) 9-07 [facility] 0.125 MG 00:00: Medical tablet 00 Center tamsulosin 2020-0 Yes QD daily. [facility]I S t (FLOMAX) 9-05 [facility] 0.4 mg Cap 00:00: Medical 24 hr 00 Center capsule tamsulosin 1-0 Yes QD daily. [facility] t (FLOMAX) 9-05 [facility] 0.4 mg Cap 00:00: Medical 24 hr 00 Center capsule lisinopril- 2021- No 1{tbl} Q.5D Take [address] hydroCHLORO 8-27 - tablet by Magali alva thiazide 00:00: 00:00 mouth 2 Medic al (PRINZIDE,Z 00 :00 (two) Center ESTORETIC) times 20-12.5 mg daily. per tablet Protonix Protonix 2019-0 Yes Rafael 1 tablet Common 3-21 Oliveira Spirit 00:00: - CHI 00 [facility] Digoxin Digoxin Yes Rafael 1 tablet Com [facility] CoQ-10 CoQ-10 Yes Rafael not Common [facility] Prostate Prostate Yes Rafael not Commo n [facility] Allopurinol Allopurinol Yes Rafael 1 tablet Common [facility] Coreg Coreg Yes Rafael 1 tab [facility] Fish Oil Fish Oil Yes Rafael not Commo n [facility] Zestoretic Zestoretic Yes Rafael 2 tablets Common [facility] Metformin Metformin Yes Rafael 1 tablet Common HCl HCl Oliveira with meals [facility] Lipitor Lipitor Yes Rafael 1 tablet [facility]op[facility] Clopidogrel Yes Rafael TAKE 1 Common Bisulfate Bisulfate Oliveira TABLET BY [facility] MOUTH - CHI EVERY DAY [facility] Warfarin Warfarin Yes Rafael 1 tablet C ommon Sodium Sodium [facility] Vitamin E Vitamin E Yes Rafael not Com mon Oliveira defined [facility] Fish Oil Fish Oil Yes Rafael 1 capsule Common [facility] Carvedilol Carvedilol Yes Rafael 1 tablet Common Oliveira with food [facility] Metformin Metformin Yes Rafael TAKE 1 C ommon HCl HCl Oliveira TABLET BY Spirit MOUTH 2 - CHI TIMES A [facility] Potassium Potassium No 1{table BID Potassium Chloride ER Chloride ER t_with_ Chloride 10 MEQ 10 MEQ food} ER 10 MEQ Furosemide Furosemide No 1{table QD Furosemide 40 MG 40 MG t} 40 MG Protonix 40 Protonix 40 No 1{table QD Protonix MG MG t} 40 MG Zestoretic Zestoretic No 2{table QD Zestoretic 20-12.5 MG 20-12.5 MG ts} 20-12.5 MG Allopurinol Allopurinol No 1{table QD Allopurino 300 MG 300 MG t} l 300 MG Fish Oil Fish Oil No Fish Oil Vitamin E Vitamin E No Vitamin E Tamsulosin Tamsulosin No 1{capsu QD Tamsulosin HCl 0.4 MG HCl 0.4 MG le} HCl 0.4 MG Fish Oil Fish Oil No 1{capsu QD Fish Oil 1000 MG 1000 MG le} 1000 MG Coreg 6.25 Coreg 6.25 No Coreg 6.25 MG MG MG Carvedilol Carvedilol No 1{table BID Carvedilol 6.25 MG 6.25 MG t_with_ 6.25 MG food} CoQ-10 CoQ-10 No CoQ-10 Prostate Prostate No [facility] Zestoretic Zestoretic No 2{table QD Zestoretic 20-12.5 MG 20-12.5 MG ts} 20-12.5 MG Digoxin 125 Digoxin 125 No 1{table QD Digoxin MCG MCG t} 125 MCG Fish Oil Fish Oil No Fish Oil Warfarin Warfarin No 1{table QD Warfarin Sodium 4 MG Sodium 4 MG t} Sodium 4 MG Allopurinol Allopurinol No 1{table QD Allopurino 300 MG 300 MG t} l 300 MG Lipitor 80 Lipitor 80 No 1{table QD Lipitor 80 MG MG t} MG Furosemide Furosemide No 1{table QD Furosemide 40 MG 40 MG t} 40 MG Fish Oil Fish Oil No 1{capsu QD Fish Oil 1000 MG 1000 MG le} 1000 MG Vitamin E Vitamin E No Vitamin E Protonix 40 Protonix 40 No 1{table QD Protonix MG MG t} 40 MG Tamsulosin Tamsulosin No 1{capsu QD Tamsulosin HCl 0.4 MG HCl 0.4 MG le} HCl 0.4 MG Potassium Potassium No 1{table BID Potassium Chloride ER Chloride ER t_with_ Chloride 10 MEQ 10 MEQ food} ER 10 MEQ CoQ-10 CoQ-10 No CoQ-10 Prostate Prostate No [facility] Zestoretic Zestoretic No 2{table QD Zestoretic 20-12.5 MG 20-12.5 MG ts} 20-12.5 MG Digoxin 125 Digoxin 125 No 1{table QD Digoxin MCG MCG t} 125 MCG Fish Oil Fish Oil No Fish Oil Warfarin Warfarin No 1{table QD Warfarin Sodium 4 MG Sodium 4 MG t} Sodium 4 MG Allopurinol Allopurinol No 1{table QD Allopurino 300 MG 300 MG t} l 300 MG Lipitor 80 Lipitor 80 No 1{table QD Lipitor 80 MG MG t} MG Furosemide Furosemide No 1{table QD Furosemide 40 MG 40 MG t} 40 MG Fish Oil Fish Oil No 1{capsu QD Fish Oil 1000 MG 1000 MG le} 1000 MG Vitamin E Vitamin E No Vitamin E Protonix 40 Protonix 40 No 1{table QD Protonix MG MG t} 40 MG Tamsulosin Tamsulosin No 1{capsu QD Tamsulosin HCl 0.4 MG HCl 0.4 MG le} HCl 0.4 MG Potassium Potassium No 1{table BID Potassium Chloride ER Chloride ER t_with_ Chloride 10 MEQ 10 MEQ food} ER 10 MEQ CoQ-10 CoQ-10 No CoQ-10 Prostate Prostate No Prostate Health Health Health Zestoretic Zestoretic No 2{table QD Zestoretic 20-12.5 MG 20-12.5 MG ts} 20-12.5 MG Digoxin 125 Digoxin 125 No 1{table QD Digoxin MCG MCG t} 125 MCG Fish Oil Fish Oil No Fish Oil Warfarin Warfarin No 1{table QD Warfarin Sodium 4 MG Sodium 4 MG t} Sodium 4 MG Allopurinol Allopurinol No 1{table QD Allopurino 300 MG 300 MG t} l 300 MG Lipitor 80 Lipitor 80 No 1{table QD Lipitor 80 MG MG t} MG Furosemide Furosemide No 1{table QD Furosemide 40 MG 40 MG t} 40 MG Fish Oil Fish Oil No 1{capsu QD Fish Oil 1000 MG 1000 MG le} 1000 MG Vitamin E Vitamin E No Vitamin E Protonix 40 Protonix 40 No 1{table QD Protonix MG MG t} 40 MG Tamsulosin Tamsulosin No 1{capsu QD Tamsulosin HCl 0.4 MG HCl 0.4 MG le} HCl 0.4 MG Potassium Potassium No 1{table BID Potassium Chloride ER Chloride ER t_with_ Chloride 10 MEQ 10 MEQ food} ER 10 MEQ CoQ-10 CoQ-10 No CoQ-10 Tamsulosin Tamsulosin No 1{capsu QD Tamsulosin HCl 0.4 MG HCl 0.4 MG le} HCl 0.4 MG Digoxin 125 Digoxin 125 No 1{table QD Digoxin MCG MCG t} 125 MCG Allopurinol Allopurinol No 1{table QD Allopurino 300 MG 300 MG t} l 300 MG Warfarin Warfarin No 1{table QD Warfarin Sodium 4 MG Sodium 4 MG t} Sodium 4 MG Prostate Prostate No [facility] Fish Oil Fish Oil No 1{capsu QD Fish Oil 1000 MG 1000 MG le} 1000 MG Zestoretic Zestoretic No 2{table QD Zestoretic 20-12.5 MG 20-12.5 MG ts} 20-12.5 MG Furosemide Furosemide No 1{table QD Furosemide 40 MG 40 MG t} 40 MG Fish Oil Fish Oil No Fish Oil Vitamin E Vitamin E No Vitamin E Lipitor 80 Lipitor 80 No 1{table QD Lipitor 80 MG MG t} MG Protonix 40 Protonix 40 No 1{table QD Protonix MG MG t} 40 MG Potassium Potassium No 1{table BID Potassium Chloride ER Chloride ER t_with_ Chloride 10 MEQ 10 MEQ food} ER 10 MEQ CoQ-10 CoQ-10 No CoQ-10 Tamsulosin Tamsulosin No 1{capsu QD Tamsulosin HCl 0.4 MG HCl 0.4 MG le} HCl 0.4 MG Digoxin 125 Digoxin 125 No 1{table QD Digoxin MCG MCG t} 125 MCG Allopurinol Allopurinol No 1{table QD Allopurino 300 MG 300 MG t} l 300 MG Warfarin Warfarin No 1{table QD Warfarin Sodium 4 MG Sodium 4 MG t} Sodium 4 MG Prostate Prostate No [facility] Fish Oil Fish Oil No 1{capsu QD Fish Oil 1000 MG 1000 MG le} 1000 MG Zestoretic Zestoretic No 2{table QD Zestoretic 20-12.5 MG 20-12.5 MG ts} 20-12.5 MG Furosemide Furosemide No 1{table QD Furosemide 40 MG 40 MG t} 40 MG Fish Oil Fish Oil No Fish Oil Vitamin E Vitamin E No Vitamin E Lipitor 80 Lipitor 80 No 1{table QD Lipitor 80 MG MG t} MG Protonix 40 Protonix 40 No 1{table QD Protonix MG MG t} 40 MG Potassium Potassium No 1{table BID Potassium Chloride ER Chloride ER t_with_ Chloride 10 MEQ 10 MEQ food} ER 10 MEQ CoQ-10 CoQ-10 No CoQ-10 Tamsulosin Tamsulosin No 1{capsu QD Tamsulosin HCl 0.4 MG HCl 0.4 MG le} HCl 0.4 MG Digoxin 125 Digoxin 125 No 1{table QD Digoxin MCG MCG t} 125 MCG Allopurinol Allopurinol No 1{table QD Allopurino 300 MG 300 MG t} l 300 MG Warfarin Warfarin No 1{table QD Warfarin Sodium 4 MG Sodium 4 MG t} Sodium 4 MG Prostate Prostate No Prostate [facility] Fish Oil Fish Oil No 1{capsu QD Fish Oil 1000 MG 1000 MG le} 1000 MG Zestoretic Zestoretic No 2{table QD Zestoretic 20-12.5 MG 20-12.5 MG ts} 20-12.5 MG Furosemide Furosemide No 1{table QD Furosemide 40 MG 40 MG t} 40 MG Fish Oil Fish Oil No Fish Oil Vitamin E Vitamin E No Vitamin E Lipitor 80 Lipitor 80 No 1{table QD Lipitor 80 MG MG t} MG Protonix 40 Protonix 40 No 1{table QD Protonix MG MG t} 40 MG Potassium Potassium No 1{table BID Potassium Chloride ER Chloride ER t_with_ Chloride 10 MEQ 10 MEQ food} ER 10 MEQ Digoxin 125 Digoxin 125 No 1{table QD [...] t} 40 MG Prostate Prostate No Prostate [facility] Health Carvedilol Carvedilol No 1{table BID [...] CoQ-10 CoQ-10 No CoQ-10 Prostate Prostate No [facility] Vitamin E Vitamin E No Vitamin [...] QD Digoxin MCG MCG t} 125 MCG Warfarin Warfarin No 1{table QD Warfarin Sodium 4 MG Sodium 4 MG t} Sodium 4 MG Lipitor 80 Lipitor 80 No 1{table QD Lipitor 80 MG MG t} MG CoQ-10 CoQ-10 No CoQ-10 Prostate Prostate No [facility] Digoxin 125 Digoxin 125 No 1{table QD Digoxin MCG MCG t} 125 MCG Vital Signs Vital Name Observation Time Observation Value Comments Source height 2022-01-29 11:20:00 71 [in_i] Common S [facility] weight 2022-01-29 11:20:00 185 [lb_av] Common S pirit [facility] temperature 2022-01-29 11:20:00 97.5 [degF] Common S pirit [facility] bmi 2022-01-29 11:20:00 25.80 kg/m2 Common S pirit [facility] blood pressure 2022-01-29 11:20:00 121 mm[Hg] [facility] - systolic [facility] blood pressure 2022-01-29 11:20:00 74 mm[Hg] [facility] - diastolic [facility] height 2021-09-22 10:50:00 71 [in_i] Common S pirit [facility] weight 2021-09-22 10:50:00 188 [lb_av] Common S pirit [facility] temperature 2021-09-22 10:50:00 98 [degF] Common S pirit [facility] bmi 2021-09-22 10:50:00 26.22 kg/m2 Common S pirit - [facility] blood pressure 2021-09-22 10:50:00 128 mm[Hg] [facility] - systolic [facility] blood pressure 2021-09-22 10:50:00 78 mm[Hg] [facility] - diastolic [facility] height 2021-05-04 10:40:00 71 [in_i] Common S pirit [facility] weight 2021-05-04 10:40:00 185 [lb_av] Common S pirit [facility] temperature 2021-05-04 10:40:00 98 [degF] Common S pirit [facility] bmi 2021-05-04 10:40:00 25.80 kg/m2 Common S pirit [facility] blood pressure 2021-05-04 10:40:00 121 mm[Hg] [facility] - systolic [facility] blood pressure 2021-05-04 10:40:00 70 mm[Hg] [facility] - diastolic [facility] WEIGHT 2021-04-03 07:59:00 77.2 kg HEIGHT 2021-04-02 05:48:00 180.3 cm WEIGHT 2021-04-02 05:48:00 76.386 kg WEIGHT 2021-04-03 07:59:00 77.2 kg HEIGHT 2021-04-02 05:48:00 180.3 cm WEIGHT 2021-04-02 05:48:00 76.386 kg height 2021-02-02 16:10:00 71 [in_i] Common S pirit [facility] weight 2021-02-02 16:10:00 183 [lb_av] Common S pirit [facility] temperature 2021-02-02 16:10:00 97.2 [degF] Common S pirit - [facility] bmi 2021-02-02 16:10:00 25.52 kg/m2 Common S pirit - [facility] blood pressure 2021-02-02 16:10:00 115 mm[Hg] [facility] - systolic [facility] blood pressure 2021-02-02 16:10:00 73 mm[Hg] [facility] - diastolic [facility] HEIGHT 2021-01-28 10:48:00 177.8 cm WEIGHT 2021-01-28 10:48:00 82.781 kg HEIGHT 2021-01-28 10:48:00 177.8 cm WEIGHT 2021-01-28 10:48:00 82.781 kg Systolic blood 2021-04-03 11:03:00 120 mm[Hg] [facility] Diastolic blood 2021-04-03 11:03:00 68 mm[Hg] [facility] Heart rate 2021-04-03 11:03:00 91 /min [facility] Body temperature 2021-04-03 11:03:00 36.61 Candi [facility] Respiratory rate 2021-04-03 11:03:00 18 /min [facility] Oxygen saturation in 2021-04-03 11:03:00 99 /min [facility] Arterial blood by Medical Ce nter Pulse oximetry Body weight 2021-04-03 07:59:00 77.2 kg [facility] BMI 2021-04-03 07:59:00 23.74 kg/m2 [facility] Body height 2021-04-02 05:48:00 180.3 cm [facility] Procedures Procedure Date / Time Performed Performing Clinician Marlon walters POCT-GLUCOSE METER 2021-04-03 11:18:00 Cb Salcedo [facility] POCT-GLUCOSE METER 2021-04-03 07:24:[address] [facility] CBC (HEMOGRAM ONLY) 2021-04-03 04:36:00 Masha Kaiser [facility] BASIC METABOLIC PANEL 2021-04-03 04:36:00 Masha Kaiser [facility] MAGNESIUM 2021-04-03 04:36:00 [facility] PROTHROMBIN TIME/INR 2021-04-03 04:36:00 [facility] HEMOGLOBIN A1C 2021-04-03 04:36:[facility] PO[facility]UCOSE METER 2021-04-02 17:05:[address] [facility] MAGNESIUM 2021-04-02 15:34:00 [facility] BASIC METABOLIC PANEL 2021-04-02 15:34:00 [facility] SODIUM NA-STAT LAB 2021-04-02 09:43:00 [facility] POTASSIUM-STAT LAB 2021-04-02 09:43:00 [facility] GLUCOSE-STAT LAB 2021-04-02 09:[facility] LAB 2021-04-02 09:43:00 [facility] TISSUE EXAM 2021-04-02 08:55:[address] [facility] POCT-ACT 2021-04-02 08:34:00 Iv[facility] POCT-ACT 2021-04-02 08:10:[address] [facility] ABORH, MANUAL 2021-04-02 06:59:00 Yuridia Veliz [facility] ENDARTERECTOMY, CAROTID 2021-04-02 06:59:[address] [facility] ECG 12-LEAD 2021-04-02 06:52:44 Masha [facility] ECG 12-LEAD 2021-04-02 06:52:44 Unknown, [id number] [facility] BASIC METABOLIC PANEL 2021-04-02 06:17:00 Masha Kaiser [facility] CBC W/PLT COUNT & AUTO 2021-04-02 06:17:00 [facility] PROTHROMBIN TIME/INR 2021-04-02 06:17:00 [facility] TYPE AND SCREEN, 2021-04-02 06:17:00 [facility] CBC W/PLT COUNT & AUTO 2021-04-02 06:17:00 [facility] (CELLAVISION MANUAL 2021-04-02 06:17:[address] [facility] DIFF) [facility] Plan of Care Planned Activity Planned Date Details Comments Source Future Scheduled 2022-12-01 Screening for malignant [facility] neoplasm of colon Hospital (procedure) [code = 874207531] Future Scheduled 2022-12-01 Screening for malignant [facility] 10:00:35 neoplasm of colon Hospital (procedure) [code = 871139134] Future Scheduled 2022-12-01 SHINGLES VACCINES (1 of [facility] 10:00:35 2) [code = SHINGLES Hospital VACCINES (1 of 2)] Future Scheduled 2022-12-01 65+ PNEUMOCOCCAL VACCINE [facility] 10:00:35 (1 - PCV) [code = 65+ Hospit al PNEUMOCOCCAL VACCINE (1 - PCV)] Future Scheduled 2022-12-01 INFLUENZA VACCINE (#1) [facility] Test 10:00:35 [code = INFLUENZA VACCINE Ho spital (#1)] Future Scheduled 2022-12-01 Screening for malignant [facility] 10[facility] neoplasm of colon Hospital (procedure) [code = 917728077] Future Scheduled 2022-12-01 Screening for malignant [facility] 10[facility]00:[facility] neoplasm of colon Hospital (procedure) [code = 928721436] Future Scheduled 2022-12-01 Screening for malignant [facility] 10[facility]00:[facility] neoplasm of colon Hospital (procedure) [code = 624994134] Future Scheduled 2022-12-01 COVID-19 VACCINE (#1) [facility] 10:00:35 [code = COVID-19 VACCINE Hos pital (#1)] Future Scheduled 2022-11-26 Influenza Vaccine (#1) [facility] [code = Influenza Vaccine Me dical Center (#1)] Future Scheduled 2022-03-[address] [facility] 00:00:00 (12+) [code = DEPRESSION Med ical Center SCREENING (12+)] Future Scheduled 2022-03-28 FALLS RISK SCREENING [facility] 00:00:00 [code = FALLS RISK Medical C enter SCREENING] Future Scheduled 2022-01-[address] [facility] 00:00:00 Counseling and Screening Med ical Center (12+) [code = Tobacco Cessation Counseling and Screening (12+)] Future Scheduled 2022-01-10 COLONOSCOPY SCREENING [facility] 12:40:20 [code = COLONOSCOPY Hospital SCREENING] Future Scheduled 2022-01-10 SHINGLES VACCINES (1 of [facility] 12:40:20 2) [code = SHINGLES Hospital VACCINES (1 of 2)] Future Scheduled 2022-01-10 INFLUENZA VACCINE [code = [facility] 12:40:20 INFLUENZA VACCINE] Hospital Future Scheduled 2022-01-10 65+ PNEUMOCOCCAL VACCINE [facility] 12:40:20 (1 - PCV) [code = 65+ Hospit al PNEUMOCOCCAL VACCINE (1 - PCV)] Future Scheduled 2022-01-10 HEPATITIS B VACCINES (1 [facility] 12:40:20 of 3 - 3-dose series) Hospit al [code = HEPATITIS B VACCINES (1 of 3 - 3-dose series)] Future Scheduled 2022-01-10 COVID-19 VACCINE (#1) [facility] 12:40:20 [code = COVID-19 VACCINE Hos [facility] (#1)] Future Scheduled 2022-01-10 COLONOSCOPY SCREENING [facility] 12:40:20 [code = COLONOSCOPY Hospital SCREENING] Future Scheduled 2022-01-10 SHINGLES VACCINES (1 of [facility] 12:40:20 2) [code = SHINGLES Hospital VACCINES (1 of 2)] Future Scheduled 2022-01-10 INFLUENZA VACCINE [code = [facility] 12:40:20 INFLUENZA VACCINE] Hospital Future Scheduled 2022-01-10 65+ PNEUMOCOCCAL VACCINE [facility] 12:40:20 (1 - PCV) [code = 65+ Hospit al PNEUMOCOCCAL VACCINE (1 - PCV)] Future Scheduled 2022-01-10 HEPATITIS B VACCINES (1 [facility] 12:40:20 of 3 - 3-dose series) Hospit al [code = HEPATITIS B VACCINES (1 of 3 - 3-dose series)] Future Scheduled 2022-01-10 COVID-19 VACCINE (#1) [facility] 12:40:20 [code = COVID-19 VACCINE Hos pital (#1)] Future Scheduled 2021 Abdominal aortic aneurysm [facility] 00:[facility]:00 screening (procedure) [facility] Center [code = 707967867] Future Scheduled 2021-11-26 INFLUENZA VACCINE (#1) [facility] 00:00:00 [code = INFLUENZA VACCINE Me dical Center (#1)] Future Scheduled 2021-01-[address] [facility] 00:[facility]:00 measurement (procedure) [facility] [code = 96309968] Future Scheduled 2021-01-[address] [facility] 00:00:00 measurement (procedure) [facility] [code = 43676698] Future Scheduled 2006 SHINGLES VACCINES ([address] [facility] 00:00:00 2) [code = SHINGLES [facility] VACCINES (1 of 2)] Future Scheduled 2006 SHINGLES VACCINES ([address] [facility] 00:00:00 2) [code = SHINGLES [facility] VACCINES (1 of 2)] Future Scheduled 1991-12-07 Lipid panel (procedure) [facility] 00:00:00 [code = 58413425] Medical Ce nter Future Scheduled 1991-12-07 Lipid panel (procedure) [facility] 00:00:00 [code = 97395404] Medical Ce nter Future Scheduled 1975-12-07 DTAP/TDAP/TD VACCINES ([address] [facility] 00:00:00 - Tdap) [code = Medical Cent er DTAP/TDAP/TD VACCINES (1 - Tdap)] Future Scheduled 1975-12-07 DTAP/TDAP/TD VACCINES ([address] [facility] 00:00:00 - Tdap) [code = Medical Cent er DTAP/TDAP/TD VACCINES (1 - Tdap)] Future Scheduled 1974 HEPATITIS [facility] [code = HEPATITIS C Medical Center SCREENING] Future Scheduled 1974 HEPATITIS C [facility] [code = HEPATITIS C Medical Center SCREENING] Future Scheduled 1971-12-[address] Human [address] [facility] 00:[facility]:00 virus screening Medical Cent er (procedure) [code = 101655048] Future Scheduled 1966 DIABETIC EYE EXAM [code = [facility] 00:00:00 DIABETIC EYE EXAM] Medical C enter Future Scheduled 1966 Diabetic foot examination [facility] 00:00:00 (regime/therapy) [code = Med ical Center 538475841] Future Scheduled 1966 Urine screening for [facility] 00:00:00 protein (procedure) [code Me dical Center = 670421995] Future Scheduled 1966 DIABETIC EYE EXAM [code = [facility] 00:00:00 DIABETIC EYE EXAM] Medical C enter Future Scheduled 1966 Diabetic foot examination [facility] 00:00:00 (regime/therapy) [code = Med ical Center 850711681] Future Scheduled 1966 Urine screening for [facility] 00:00:00 protein (procedure) [code Me dical Center = 628902439] Future Scheduled 1962 PNEUMOCOCCAL 65+ YRS (1 - [facility] 00:00:00 PCV) [code = PNEUMOCOCCAL Me dical Center 65+ YRS (1 - PCV)] Future Scheduled 1962 PNEUMOCOCCAL 65+ YRS (1 - [facility] 00:00:00 PCV) [code = PNEUMOCOCCAL Me dical Center 65+ YRS (1 - PCV)] Future Scheduled 1957-06-05 COVID-19 VACCINE (#1) [facility] 00:00:00 [code = COVID-19 VACCINE Med ical Center (#1)] Future Scheduled 1957-06-05 COVID-19 VACCINE (#1) [facility] 00:00:00 [code = COVID-19 VACCINE Med ical Center (#1)] Future Scheduled 1956 CT Colonography (combo) [facility] 00[facility]00:00 [code = CT Colonography [facility] (combo)] Future Scheduled [address] Screening for malignant [facility] 00:00:00 neoplasm of colon Medical Ce nter (procedure) [code = 537721207] Future Scheduled [address] Screening for malignant [facility] 00:00:00 neoplasm of colon Medical Ce nter (procedure) [code = 790865540] Future Scheduled [address] Screening for malignant [facility] 00:00:00 neoplasm of colon Medical Ce nter (procedure) [code = 421846720] Future Scheduled [address] Screening for malignant [facility] 00:00:00 neoplasm of colon Medical Ce nter (procedure) [code = 277566037] Future Scheduled 1956 Sigmoidoscopy [code = [facility] Sigmoidoscopy] Medical Cente r Future Scheduled 1956 CT Colonography (combo) [facility] 00:00:00 [code = CT Colonography [facility] (combo)] Future Scheduled [address] Screening for malignant [facility] 00:00:00 neoplasm of colon Medical Ce nter (procedure) [code = 899401308] Future Scheduled [address] Screening for malignant [facility] 00:00:00 neoplasm of colon Medical Ce nter (procedure) [code = 253515404] Future Scheduled [address] Screening for malignant [facility] 00:00:00 neoplasm of colon Medical Ce nter (procedure) [code = 683091210] Future Scheduled [address] Screening for malignant [facility] 00:00:00 neoplasm of colon Medical Ce nter (procedure) [code = 644555592] Future Scheduled 1956 Sigmoidoscopy [code = [facility] S[facility]oidoscopy] [facility] Start End Encounter Admission Attending Care Care Encounter Source Date/Time Date/Time Type Type Clinicians Facility Department ID 2021-10-06 Outpatient OliveiraLORELEI grant [facility] [id number] Common 11:27:00 Formerly [facility] 2021-05-04 [facility] [id number] Common 09:35:00 [facility]ly [facility] 2021-05-01 Outpatient Oliveira, STLMLC STLMLC [id number] Common 09:39:01 Rafael [facility] 2021-04-22 Outpatient Oliveira, STLMLC STLMLC [id number] Common 14:10:53 Rafael 26790 [facility] 2021-04-22 Outpatient Oliveira, STLMLC STLMLC [id number] Common 14:02:18 Rafael 69476 [facility] 2021-04-22 Outpatient Oliveira, STLMLC STLMLC [id number] Common 12:32:38 Rafael 32556 [facility] 2021-04-22 Outpatient Oliveira, STLMLC STLMLC [id number] Common 12:31:59 Rafael 85218 [facility] 2021-04-22 Outpatient Oliveira, STLMLC STLMLC [id number] Common 12:22:20 Rafael 43337 [facility] 2021-04-22 Outpatient Oliveira, STLMLC STLMLC [id number] Common 12:08:31 Rafael 18610 [facility] 2021-04-22 Outpatient Oliveira, STLMLC STLMLC [id number] Common 11:42:13 Rafael 16651 [facility] 2021-04-22 Outpatient Oliveira, STLMLC STLMLC [id number] Common 11:16:53 Rafael 14241 [facility] 2021-04-22 Outpatient Oliveira, STLMLC STLMLC [id number] Common 11:05:16 Rafael 79476 [facility] 2021-04-22 Outpatient Oliveira, STLMLC STLMLC [id number] Common 11:04:46 Rafael 92055 [facility] 2022-02-15 2022-02-15 Outpatient DMG DMG [id number] [facility] 00:00:00 00:00:00 09123 [facility] Group 2022-02-03 2022-02-03 (TEL) STLC STLC [id number] Co mmon 00:00:00 00:00:00 [facility] 2022-01-29 2022-01-29 (TEL) STLMLC STLMLC [id number] Co mmon 00:00:00 00:00:00 [facility] 2022-01-29 2022-01-29 (EST. STLMLC STLMLC [id number] Co mmon 00:00:00 00:00:00 VIDEO) EST Spi rit VIRTUAL - CHI VIDEO [facility] 2022-01-27 2022-01-27 (TEL) STLMLC STLMLC [id number] Co mmon 00:00:00 00:00:00 [facility] 2021-10-21 2021-10-21 Outpatient DMG DM [id number] [facility] 00:00:00 00:00:00 49669 [facility] l Group 2021-09-22 2021-09-22 OFFICE STLMLC STLMLC [id number] Co mmon 00:00:00 00:00:00 VISIT Spirit ESTAB PT - CHI LEVEL 4 [facility] 2021-05-04 2021-05-04 OFFICE STLMLC STLMLC [id number] Co mmon 00:00:00 00:00:00 VISIT Spirit ESTAB PT - CHI LEVEL 4 [facility] 2021-05-04 2021-05-04 (TEL) STLMLC STLMLC [id number] Co mmon 00:00:00 00:00:00 [facility] 2021-04-15 2021-04-15 Outpatient TONE MINOR [facility] [id number] SLE 00:00:00 00:00:00 KENNY 2021-04-06 2021-04-06 Telephone Victor Hugo [facility] [id number] 00:[facility] 00:00:00 [facility] 2021-04-02 2021-04-03 Hospital TONE MinorKenny [facility] [id number] 05:30:00 13:46:00 Encounter Coleenremi [facility] 2021-04-02 2021-04-03 Inpatient TONE DENISSE CB [facility] Surgery [id number] SLEH 05:30:00 13:46:00 2021-04-02 2021-04-02 Surgery Iván, [facility] [id number] [facility] 07:30:00 10:45:00 [facility] 2021-04-02 2021-04-02 Anesthesia Sid Sorensen [facility] [id number] [facility] 07:17:00 09:34:00 Event Murali Duggan [facility] 2021-04-02 2021-04-02 Orders [facility] [id number] 00:00:00 00:00:00 Only [facility] 2021-02-02 2021-02-02 [facility] [id number] Co mmon 00:00:00 00:00:00 VISIT Valdemar Brooks CHI LEVEL 4 [facility] 2021-01-28 2021-01-28 Office Iván [facility] [id number] 11:00:00 11:30:00 Visit [facility] 2021-01-28 2021-01-28 Outpatient RADHA GUEVARA SLE [id number] SLE 10:44:29 10:44:29 KENNY 2021-01-28 2021-01-28 Travel [facility] [id number] [facility] 00:[facility] 00:00:00 [facility] 2021-01-13 2021-01-13 [facility]EL[facility] [id number] Co mmon 00:00:00 00:00:00 Valdemar Brooks [facility] 2021-01-12 2021-01-12 Outpatient RADHA GUEVARA [facility] [id number] [facility] 00:00:00 00:00:00 KENNY 2021-01-05 2021-01-05 Outpatient TONE MINOR [facility] [id number] [facility] 00:00:00 00:00:00 KENNY 2020-11-10 2020-11-10 Outpatient TONE MINOR [facility] [id number] [facility] 00:00:00 00:00:00 KENNY 2020-04-29 2020-04-29 Outpatient STLMLC STLMLC [id number] Common 00:00:00 00:00:00 [facility] 2020-04-21 2020-04-21 Outpatient STLMLC STLMLC [id number] Common 00:00:00 00:00:00 [facility] 2020-04-15 2020-04-15 Outpatient STLMLC STLMLC [id number] Common 00:00:00 00:00:00 [facility] 2019-11-26 2019-11-26 Outpatient [facility] [id number] Common 16:40:00 16:40:[address] [facility] 2019-08-23 2019-08-23 Outpatient [facility] [id number] Common 16:00:00 16:00:[address] [facility] 2019-05-23 2019-05-23 Outpatient [facility] [id number] Common 13:13:00 13:13:[address] [facility] 2019-05-01 2019-05-01 Outpatient [facility] [id number] Common 16:45:00 16:45:[address] [facility] 2019-01-30 2019-01-30 Outpatient [facility] [id number] Common 16:30:00 16:30:[address] [facility] 2018-09-19 2018-09-19 Outpatient [facility] [id number] Common 16:30:00 16:30:[address] [facility] 2018-06-15 2018-06-15 Outpatient [facility] [id number] Common 16:00:00 16:00:[address] [facility] 2018-03-16 2018-03-16 Outpatient [facility] [id number] Common 15:30:00 15:30:[address] [facility] 2017-12-22 2017-12-22 Outpatient [facility] [id number] Common 15:45:00 15:45:00 t [facility] it Drive [facility] 2017-09-21 2017-09-21 Outpatient [facility] [id number] Common 16:00:00 16:00:00 t [facility] it Drive [facility] Results Test Description Test Time Test Comments Results Result Comments Source Tissue Exam 2021-04-06 13:10:34 Test Item Value Reference Range Interpretation Comme nts Case Report (test code = 104) Surgical Pathology Report Case: [id number] Authorizing Provider: Kenny Minor, Collected: 04/02/2021 08:55 AM Ordering Location: [facility] Received: 04/02/2021 09:23 AM PERIOPERATIVE SERVICES Pathologist: Cole Nguyễn MD Specimen: Plaque, LEFT CAROTID ARTERY PLAQUE DIAGNOSIS (test code = 3220) s0yovPUaADCjr9fwTGGmxDMvLpBuVzCsOeLrAv pc dWMxIHtccnRmMVxlcGljOTYwMVxhbnNpXHNwbHRw D7SnnaqcWQwmJU5cKZ4gyXwwvOTmbIHlPXCqQxMi n2ntr847hUNap0soDCTNollqcXa0dSsaC57vl4R5 DbfwH67boLVwHLD5WNPgMXTjbWApVBGxHHI6GIJv wHKpL2piBERdHX9ugpovPQdsXCbpGNKesWZ1DUAe sJUoH5ApPZHjGQthWWUcwrb1XeOnIn3fuXWurWhp MFxwYXJkXHBsYWluXGZzMjAgQVJURVJZLCBMRUZU WUMRTo4LHLGyZWLVABFEESQXOJGXT03XRbjzVBRs D6MJS2eARYUyYDQWALBCD0QVUWLPVDzRDCUCXYVV ZQJluNBctJmojcZjYSwja3HoAFydCJTeFC5jiBzt LTXrRA3nMVUgP5avrM7synm7GsMlYDAlNcI9MRHr kfS7Jfn6GTKrGNvtg2ufs0MhQLCzNUc2hIpfOfDd PVEje8wcdgIeVsXuJJLgRZVyPJWjoOQmA364x1gx p3yoruOyoMO1ZKNkPZJ5WVpafdRagvF0CTvwqZMt GfZ5BTxeuhJlIYmminTygxUtTyx8WSLcD095KAB3 iCstm8ylFOD9IPBeNTJrUeUoGr3foMUpB806GQTo OMWNERNqjYw3LUEinyQrbaKreGDVk389E043z8if PBDdwtNgoUkUqefiu2ymV156QYAmdFZyqsEqZjFd KQTguHIftHX3QBOoKQ6exvxyNQebFNwgOVMhapN1 WCLsoSUpO3OwJLGuUA1vgurwPDL8CTtkVJRtZLD5 LzOuQSQab7Ebidt4ByWkye2mbh33RCI9g4CbrDmt RDX5RZG3EsSpSx1dqQSzZHYsEI3eMkJtqQRcBQXz io54kPgbBMvsBMH0MOAabfOpw4Zcm7joSsOcabPk M2sbJ5QbIWDtTBTeCEBwDuDnrqFbx0Swb7SyfLAu kBw2v7bbQKJwGCAqlCcfj3iwGPH4HVFjiODgU9om eD3mKJYoUE4nyrgvv4ohNPuiPUzzRNMtuUT6jcO6 UBFuzORzI6PgvS2kMNCpCHftBBHbanh8AgFnUj0a dGVyeTcyMFxzYmtwYWdlXHBnbmNvbnRccGduZGVj XHBsYWluXHBsYWluXGYwXGZzMjRccWxcbGFuZzEw AmRzpQgyxYonRCamFcAeAUTdUKjjI6caBjMlYiYv Idz8ESZmtXCdYADpSwz3KMGnhKLkDDHWwEqifI6l TCJvwYzjmF6lkRB9LHDqbuSnwPYIlM7bCEIFxS7y YmP9SwGuJqS1OYj4FXZyjKYndB0= CPT Code(s) (test code = 3357) w4ubnVWjFHZzvXS5AoOhXHRmo4xxz6NqxFOx cGFy YApibQInuqZyxu76zEH6nC59LO3jBZVmTeW0OPJr urW2Vjz7JZVbNXInuVEdX294v4tea8iverCmhPX3 fKkySHBdymprEhU2OHwnCQGajhbqZSm1QBhiJFUu pDK8OZItbXCsX9PuXZMcEQ4ntsj6IQM3SAphRKHn TgQ7NHLicAMbXVFoaCskWKtzl237ANS2ElTgILQc tfIvbJvyrB1dIqPtPFI2YDCnTNepHYkdJWAxvIVx fQ== CLINICAL HISTORY (test code = 5886) k2lwaDAmMVDorNK2RtUbDWXwo9one1F sdHBncGFy TSjslQUvkuVwls70jYO4yJ10XY1aZHKwStW0OAGw snK8Iyo1HUEeMRXlrCPwB151r3mou8hibeFwhLO4 vAsdXFOjslbbOyL9IQklYSYvjxxtNWm4VUehNCQu dSD0ABYvuXJiI6UzUGLyEV8ikol1RRC6FUfjZIHu ZuY3TNRqgBDeOIHneQoiZEzqr788HMQ3ZxSzNVAh swQxbHoghC4bLaTjRXHGNCNklMejITU9AG0ds9yw DSy8VEFmgTGbYYSpvv8= SPECIMEN SOURCE (test code = 3377) q1gftKGkAKKlgXS5MhGoJGVlh9uze5Sf dHBncGFy BBdcqLNmjbLups69vPO4gF12UZ9xSLBvWcL7OOTt phE5Ask2ZTVbAYPuuJBuU763l5dua5xcckHorLK9 eHmmTQZwxxijAmB9XNcpWOLxnxqbDCx8LBndQGVo aGU6IEOfwNElZ1UfUQOzZK1hmbq0NFK8XFgdMVQk AfN4ABUuvQSjOPRzxOizWAfej333ZCI7OzVbSHVo yiAsfOznxO8uRqFrEHQTNsAAqKSjjOWtqCCqiJ== GROSS DESCRIPTION (test code = 3366) v2pfuPDhMMIhzWK8UiUdFBThw6auf2 BsdHBncGFy QAqtdYSnfpYhat46xJC2wM00CL1sVPClJrX4MHOs naW5Qfy9EHVcRDGfbYHnN632v5vyx4fjtnOyfVW0 dQkkWGXlbbleAbL7UZflXOHbpyvpNWl0FTgiNITr bDcyMFxtYXJncjcyMFxtYXJndDcyMFxtYXJnYjcy AKtbJXLoUZY3ZMbfl614LTW2FFukT4drrC5pSlB0 LRdpD5cxmJ0vXPh7GUanUEYqpGY8ecwsIBafRXFw yqB8npqzAQrvHNRswOB8empiLMctDBYeCtI4ease YWroVBDuNSXtJHrpSGNhNoEoIB0rOCCrR4WpgkUd SARbPNEdMRXxXXTjdZCkCPTeRWVxWCIxGM76N8Uk wpUuLYwnZLBuPXOezNObjYOdiF7wOLLuCDQtUUOy bGVmdCBjYXJvdGlkIGFydGVyeSBwbGFxdWUiIGFu WSRfg53hsJZ9kqZoYeZxJTIjih27UGeeb8okHTYh nw4mRRH8SpYuAQAhi2FaeYT3dTBgGXc9WgQszLKs VfbfbURxPuzgK68mEvAuUZndOUYxFDEgbSBkCNqh QSDqdrekrAt2WFKlQ2Fhi98fYUC0ynMiNTHcSHfy gRCoKXfhuIyhnoJcpKItn8VcHcHpCKIyfDklkV8a xOKjLHoesNFxV7U5sK1cXwXqIrSulvAlIM28QUZd qfYun8MckHlhpkAnVEOrPBZ9Zo4qySTrMSYxviDK HCRio1UnOKZpYDzmKPQurayoIEPyYlUaAFZIEKQs jpvjCNJ9tILfS5K3ZXGhnRoiKTP8 MICROSCOPIC DESCRIPTION (test code = z7nplJYzDRGosGN8TsXtJIGct1wcx6 BsdHBncGFy 3371) XRstrVZmavVicb33zZR3wR57LH2eYDHeRlX4KBPf bcL0Ktx4AZJvHBUcvALjJ229e4wii6qywwCcaGR3 vClmVEYtftcvUdL3VZhhHQMhzqkoUYg8TVmiTMGf eHH4IWVduNCaJ3CcPLAwWO7ivkc7UKF8AUpaEFUz OkO9NVGnbUEmWYBeoTrgWTdes709MYV2JdFgUXXw ogCibXedjM4cGnYpBGNOEWAje2CsFYMkjWWmrT== [id number] 13:10:34Surgical Pathology Report Case: [id number] Authorizing Provider: Kenny Minor, Collected:04/02/2021 08:55 AM Ordering Location: [facility] Received: 04/02/2021 09:23 AM PERIOPERATIVE SERVICES Pathologist: Cole Nguyễn MD Specimen: Plaque, LEFT CAROTID ARTERY PLAQUE ARTERY, LEFTCAROTID, ENDARTERECTOMY:CALCIFIC ATHEROSCLEROTIC PLAQUE Signing Pathologist Direct Phone Line: [phone] signed by Cole Nguyễn MD on 04/06/2021 at 1:10 [id number]; [id number] stenosis AJake Lang. Received fresh, labeled the patient's name, assessment number, and "left carotid artery plaque" and consists of a morgan-yellow, firm, tubular structure (5.1 x 0.8 x 0.7 cm). The specimen is serially sectioned to reveal morgan-yellow cut surfaces minimal calcification. Mds Rn sections are submitted in A1 for decal.Brad Chaparro StudentPerformedPOC-Glucose [id number] 11:29:45 Test Item Value Reference Range Interpretation Comments POC-Glucose Meter (test 133 mg/dL 70-110 H : TE STED AT [facility] code = 1538) [address] [facility], 770 30: Tank Truck Driver/Techni zaynab ID = [id number] for WALLY GENAO Lab Interpretation (test Abnormal code = 32676-1) [facility] [id number] 11:29:45 Test Item Value Reference Range Interpretation Comments POC-GLUCOSE METER 133 mg/dL 70-110 H : TESTED A T [facility] 6720 (BEAKER) (test [facility] = [facility], 1538) 78171: Tank Truck Driver/Techni zaynab ID = [id number] for HEBERT PONCEWALLY DIALLO Hemoglobin [id number] 09:12:38 Test Item Value Reference Range Interpretation [...] ADM Lab Interpretation Normal (test code = 70288-3) [facility] [id number] 09:12:38 Test Item Value Reference Range Interpretation Comments HEMOGLOBIN A1C 5.6 % See_Comment [Automated m essage] ELECTROPHORESIS (JIAN) The system which (test code = 3811) generated this result transmitted ref erence range: <=5.6%. The reference range was not used to int erpret this result as normal/abnormal . "The A1c is measured using a NGSP-certified method. HbA1c value equal to or greater than 6.5% as thediagnosis cutoff for diabetes. An HbA1c value of 5.7- 6.4% indicates increased risk for diabetes (prediabetes)."Tank Truck Driver ID - ADMPOCT- GLUCOSE [id number] 07:35:52 Test Item Value Reference Range Interpretation Comments POC-GLUCOSE METER 120 mg/dL 70-110 H : TESTED A T [facility] 6720 (JIAN) (test code = IRASEMA Nai [place], 1538) [address]: Tank Truck Driver/Techni zaynab ID = [id number] for KENNA ANA JACOB Basic Metabolic [id number] 05:47:32 Test Item Value Reference Range Interpretation [...] Calcium (test code = 8.8 mg/dL 8.4-10.2 99596-8) EGFR (test code = 57 mL/min/1.73 [place] [address]-9) NOT ACCURATE CREATININE CLEARANCE IN PREDICTING GLOMERULAR FILTRATION RATE . ESTIMATED GFR I S NOT APPLICABLE FOR DIALYSIS PATIENTS. PARMJIT (test code = PARMJIT) Tank Truck Driver ID - PIAYA L Lab Interpretation Abnormal (test code = 70157-6) [facility] 05:47:32 Test Item Value Reference Range Interpretation Comments Magnesium (test code = 2.1 mg/dL 1.6-2.6 67706-4) PARMJIT (test code = PARMJIT) Tank Truck Driver ID - MARY Mccray Lab Interpretation (test Normal code = 74954-9) [facility] MET[facility]OLIC [id number] 05:47:32 Test Item Value Reference Range Interpretation [...] S NOT APPLICABLE FOR DIALYSIS PATIEN TS. Tank Truck Driver ID - MARY [id number] 05:47:32 Test Item Value Reference Range Interpretation Comments MAGNESIUM (BEAKER) (test code = 2.1 mg/dL 1.6-2.6 627) Tank [employer] Driver ID - MARY LCBC (Hemogram only)2021-04-03 05:25:19 Test Item Value Reference Range Interpretation Comments WBC (test code = 6690-2) 9.3 See_Comment [A utomated message] The system Screenie generated this result transmitted ref erence range: 3.5 - 10 .5 K/L. The refe rence range was not u sed to interpret this result as normal/abnor mal. RBC (test code = 789-8) 3.27 See_Comment L [Au tomated message] The system Screenie generated this result transmitted ref erence range: 4.63 - 6 .08 M/L. The refe rence range was not u sed to interpret this result as normal/abnor mal. MCHC (test code = 786-4) 31.8 See_Comment L [A utomated message] The system Screenie generated this result transmitted ref erence range: [...] See_Comment [Aut omated message] 777-3) The system Screenie generated this result transmitted ref erence range: 150 - 45 0 K/CU MM. The referen ce range was not u sed to interpret this result as normal/abnor mal. MPV (test code = 9.8 fL 9.4-12.4 93471-0) nRBC (test code = 413) 0 See_Comment [Aut omated message] The system Screenie generated this result transmitted ref erence range: 0 - 0 /1 00 WBC. The refere nce range was not u sed to interpret this result as normal/abnor mal. Lab Interpretation (test Abnormal code = 99392-2) [facility] (HEMOGRAM ONLY)2021-04-03 05:25:19 Test Item [...] 0-0 (BEAKER) (test code = 413) Prothrombin time/[id number] 05:24:37 Test Item Value Reference Interpretation Comments Range Protime (test code = 14.9 See_Comment H [Autom ated 5902-2) message] The system which generated this result transmitted reference range : 11.9 - 14.2 seconds. The reference range was not used to interpret this result as normal/abnormal . INR (test code = 1.19 See_Comment [Automated 8271-6) message] The system which generated this result [...] valves. Lab Interpretation Abnormal (test code = 71079-5) [id number] 05:24:37 Test Item Value Reference Range Interpretation Comments PROTIME (BEAKER) 14.9 seconds 11.9-14.2 H (test code = 759) INR (BEAKER) (test 1.19 See_Comment [Automat ed message] code = 370) The system whic h generated this result transmitted ref erence range: <=5.90. The reference range was not used to int erpret this result as normal/abnormal . RECOMMENDED COUMADIN/WARFARIN INR THERAPY RANGESSTANDARD DOSE: 2.0 - 3.0 Includes: PROPHYLAXIS for venous thrombosis, systemic embolization; TREATMENT for venous thrombosis and/or pulmonary embolus.HIGH RISK: Target INR is 2.5-3.5 for patients with mechanical heart valves.POCT-GLUCOSE [id number] 17:17:12 Test Item Value Reference Range Interpretation Comments POC-GLUCOSE METER 236 mg/dL 70-110 H : TESTED A T [facility] 6720 (BEAKER) (test code = [place], 1538) [address]: Tank Truck Driver/Techni zaynab ID = [id number] for JACOB MOORE BASIC METABOLIC [id number] 16:11:14 Test Item Value Reference Range Interpretation [...] S NOT APPLICABLE FOR DIALYSIS PATIEN TS. Tank Truck Driver ID - [id number] 16:11:14 Test Item Value Reference Range Interpretation Comments MAGNESIUM (BEAKER) (test code = 1.3 mg/dL 1.6-2.6 L 627) Tank Truck Driver ID - DBHGB/HCT (H&H)-Stat [id number] 10:00:02 Test Item Value Reference Range Interpretation Comments Hemoglobin (test code = 10.7 See_Comment L [Au tomated message] 786-4) The system Screenie generated this result transmitted ref erence range: 13.0 - 1 6.8 GM/DL. The refe rence range was not u sed to interpret this result as normal/abnor mal. Hematocrit (test code = 31.0 % 40.0-50.0 L 4544-3) Lab Interpretation (test Abnormal code = 35877-8) [facility]&H[facility] - STAT [id number] 10:00:02 Test Item Value Reference Range Interpretation Comments HEMOGLOBIN (BEAKER) (test code = 10.7 GM/DL 13.0-16.8 L 410) HEMATOCRIT (BEAKER) (test code = 31.0 % 40.0-50.0 L 411) Glucose-Stat [id number] 09:58:47 Test Item Value Reference Range Interpretation Comments Glucose (test code = 2345-7) 119 mg/dL 70-110 H Lab Interpretation (test code = Abnormal 55674-4) [facility] [id number] 09:58:47 Test Item Value Reference Range Interpretation Comments GLUCOSE RANDOM (BEAKER) (test code 119 mg/dL 70-110 H = 652) Sodium Na-Stat [id number] 09:58:03 Test Item Value Reference Range Interpretation Comments Sodium (test code = 2951-2) 137 meq/L 136-145 Lab Interpretation (test code = Normal 36601-4) [facility]-Stat [id number] 09:58:03 Test Item Value Reference Range Interpretation Comments Potassium (test code = 2823-3) 3.5 meq/L 3.6-5.5 L Lab Interpretation (test code = Abnormal 61886-2) [facility] [id number] 09:58:03 Test Item Value Reference Range Interpretation Comments SODIUM (BEAKER) (test code = 381) 137 meq/L 136-145 POTASSIUM-STAT [id number] 09:58:03 Test Item Value Reference Range Interpretation Comments POTASSIUM (BEAKER) (test code = 3.5 meq/L 3.6-5.5 L 379) POC ACTIVATED CLOTTING [id number] 09:15:11 Test Item Value Reference Range Interpretation Comments Activated Clotting Time 220 sec : 74 -137 seconds, (test code = 3184-9) Baselin e: TESTED AT [facility] [address], [address]: Tank Truck Driver/Techni zaynab ID = [id number] for CAST RO, MARU [facility][id number] 09:15:11 Test Item Value Reference Range Interpretation Comments ACTIVATED CLOTTING TIME 220 sec : 74 -137 seconds, (BEAKER) (test code = Baseli ne: TESTED AT 441) [facility] [address], [address]: Tank Truck Driver/Techni zaynab ID = [id number] for CA STRO, MARU [id number] 09:15:11 Test Item Value Reference Range Interpretation Comments ACTIVATED CLOTTING TIME 232 sec : 74 -137 seconds, (BEAKER) (test code = Baseli ne: TESTED AT 441) [address], [address]: Tank Truck Driver/Techni zaynab ID = [id number] for CA STRO, MARU ABORH, [id number] 07:35:00 Test Item Value Reference Range Interpretation Comments ABO Grouping (test code = 2588) A Rh Factor (test code = 2589) POS [facility]EastManual [id number] 07:06:23 Test Item Value Reference Range Interpretation [...] = 3438) PARMJIT (test code = PARMJIT) Tank Truck Driver ID - Gracy Prado comments: Slide comments: Lab Interpretation Abnormal (test code = 96948-1) [facility](CELLAVISION MANUAL DIFF)2021-04-02 07:06:23 Test Item Value Reference [...] CONCENTRATION Adequate (CELLAVISION)(BEAKER) (test code = 3438) Tank Truck Driver ID - Gracy Prado comments: Slide comments:CBC with platelet count + automated [id number] 07:06:22 Test Item Value Reference Range Interpretation Comments WBC (test code = 6690-2) 9.4 See_Comment [A utomated message] The system Screenie generated this result transmitted ref erence range: 3.5 - 10 .5 K/L. The refe rence range was not u sed to interpret this result as normal/abnor mal. RBC (test code = 789-8) 4.00 See_Comment L [Au tomated message] The system Screenie generated this result transmitted ref erence range: 4.63 - 6 .08 M/L. The refe rence range was not u sed to interpret this result as normal/abnor mal. MCHC (test code = 786-4) 31.9 See_Comment L [A utomated message] The system Screenie generated this result transmitted ref erence range: [...] See_Comment [Aut omated message] 777-3) The system Putney[place] h generated this result transmitted ref erence range: 150 - 45 0 K/CU MM. The referen ce range was not u sed to interpret this result as normal/abnor mal. MPV (test code = 9.7 fL 9.4-12.4 24409-6) nRBC (test code = 413) 0 See_Comment [Aut omated message] The system Screenie generated this result transmitted ref erence range: 0 - 0 /1 00 WBC. The refere nce range was not u sed to interpret this result as normal/abnor mal. Lab Interpretation (test Abnormal code = 85906-2) [facility] W/PLT COUNT & AUTO [id number] 07:06:22 Test Item Value Reference Range Interpretation [...] (test code = 413) Type and screen, [id number] 07:02:00 Test Item Value Reference Range Interpretation Comments ABO/RH AUTOMATED (BEAKER) (test A POSITIVE code = 2260) Ab Scrn (test code = 890-4) NEGATIVE [facility] [id number] 06:47:38 Test Item Value Reference Range Interpretation [...] S NOT APPLICABLE FOR DIALYSIS PATIEN TS. 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 The reference range was not used to int erpret this result as normal/abnormal . RECOMMENDED COUMADIN/WARFARIN INR THERAPY RANGESSTANDARD DOSE: 2.0 - 3.0 Includes: PROPHYLAXIS for venous thrombosis, systemic embolization; TREATMENT for venous thrombosis and/or pulmonary embolus.HIGH RISK: Target INR is 2.5-3.5 for patients with mechanical heart valves.
--- NOTE | 2022-12-11 07:59 | EDPHYS ---
Physician Documentation [facility] Name: Dennis Wayne Age: 67 yrs Sex: Male : 1955 Arrival Date: 12/11/2022 Time: 07:12 Bed 7 Private MD: ED Physician Sachin Tillman HPI: 12/11 07:38 This 67 yrs old Male presents to ER via Ambulatory with complaints of Arm mary Pain - Left arm -swelling. 07:38 The patient or guardian complains of decreased range of motion, pain, swelling, mary tenderness. The complaints affect the left antecubital area and left elbow. Context: The problem was sustained outdoors, resulted from a fall. Onset: The symptoms/episode began/occurred 7 day(s) ago. Treatment prior to arrival includes: no previous treatment. Modifying factors: The symptoms are alleviated by remaining still, the symptoms are aggravated by movement. Severity of symptoms: At their worst the symptoms were moderate, in the emergency department the symptoms are unchanged. The patient has not experienced similar symptoms in the past. Historical: - Allergies: 07:29 No Known Allergies; hb - Home Meds: :29 cholesterol med [Active]; Digoxin Oral [Active]; Metoprolol Tartrate Oral [Active]; hb Warfarin Oral [Active]; - PMHx: : Atrial fibrillation; Hypercholesterolemia; Hypertension; CHF; hb - PSHx: :29 Anal fistula repair; cardiac stent; Carotid endarterectomy; Cholecystectomy; hb - Immunization history:: Adult Immunizations up to date. - Social history:: Smoking status: Patient/guardian denies using tobacco, the patient reports quitting approximately 30 years ago. - Family history:: not pertinent. ROS: 07:38 Constitutional: Negative for fever, chills, and weight loss, Eyes: Negative for injury, mary pain, redness, and discharge, ENT: Negative for injury, pain, and discharge, Neck: Negative for injury, pain, and swelling, Cardiovascular: Negative for chest pain, palpitations, and edema, Respiratory: Negative for shortness of breath, cough, wheezing, and pleuritic chest pain, Abdomen/GI: Negative for abdominal pain, nausea, vomiting, diarrhea, and constipation, Back: Negative for injury and pain, : Negative for injury, bleeding, discharge, and swelling, Skin: Negative for injury, rash, and discoloration, Neuro: Negative for headache, weakness, numbness, tingling, and seizure, Psych: Negative for depression, anxiety, suicide ideation, homicidal ideation, and hallucinations, Allergy/Immunology: Negative for hives, rash, and allergies, Endocrine: Negative for neck swelling, polydipsia, polyuria, polyphagia, and marked weight changes, Hematologic/Lymphatic: Negative for swollen nodes, abnormal bleeding, and unusual bruising. 07:38 MS/extremity: Positive for decreased range of motion, pain, tenderness, of the left antecubital area and left elbow. Exam: 07:38 Constitutional: This is a well developed, well nourished patient who is awake, alert, mary and in no acute distress. Head/Face: Normocephalic, atraumatic. Eyes: Pupils equal round and reactive to light, extra-ocular motions intact. Lids and lashes normal. Conjunctiva and sclera are non-icteric and not injected. Cornea within normal limits. Periorbital areas with no swelling, redness, or edema. ENT: Nares patent. No nasal discharge, no septal abnormalities noted. Tympanic membranes are normal and external auditory canals are clear. Oropharynx with no redness, swelling, or masses, exudates, or evidence of obstruction, uvula midline. Mucous membranes moist. Neck: Trachea midline, no thyromegaly or masses palpated, and no cervical lymphadenopathy. Supple, full range of motion without nuchal rigidity, or vertebral point tenderness. No Meningismus. Chest/axilla: Normal chest wall appearance and motion. Nontender with no deformity. No lesions are appreciated. Cardiovascular: Regular rate and rhythm with a normal S1 and S2. No gallops, murmurs, or rubs. Normal PMI, no JVD. No pulse deficits. Respiratory: Lungs have equal breath sounds bilaterally, clear to auscultation and percussion. No rales, rhonchi or wheezes noted. No increased work of breathing, no retractions or nasal flaring. Abdomen/GI: Soft, non-tender, with normal bowel sounds. No distension or tympany. No guarding or rebound. No evidence of tenderness throughout. Back: No spinal tenderness. No costovertebral tenderness. Full range of motion. Male : Normal genitalia with no discharge or lesions. Skin: Warm, dry with normal turgor. Normal color with no rashes, no lesions, and no evidence of cellulitis. Neuro: Awake and alert, GCS 15, oriented to person, place, time, and situation. Cranial nerves II-XII grossly intact. Motor strength 5/5 in all extremities. Sensory grossly intact. Cerebellar exam normal. Normal gait. Psych: Awake, alert, with orientation to person, place and time. Behavior, mood, and affect are within normal limits. 07:38 Musculoskeletal/extremity: ROM: limited active range of motion due to pain, limited passive range of motion due to pain, Circulation is intact in all extremities. Sensation intact. Compartment Syndrome exam of affected extremity: is normal. Weight bearing: Vital Signs: 07:24 BP 144 / 96; Pulse 84; Resp 17; Temp 98(O); Pulse Ox 99% on R/A; rs5 07:28 BP 142 / 98; Pulse 85; Resp 16; Temp 98.1(O); Pulse Ox 100% on R/A; Weight 81.65 kg; hb Height 5 ft. 11 in. ; Pain 10/10; 07:28 Body Mass Index 25.10 (81.65 kg, 180.34 cm) hb 07:28 Pain Scale: Adult hb MDM: 07:22 Patient medically screened. [facility] 07:46 Data reviewed: vital signs, nurses notes, radiologic studies, plain films. [facility] 12/11 07:33 Order name: Elbow Left 3 View XRAY [facility] 12/11 07:33 Order name: Splint - Elbow - Posterior; Complete Time: 08:24 [facility] 12/11 07:33 Order name: Sling; Complete Time: 08:24 [facility] 12/11 07:33 Order name: Ice pack; Complete Time: 08:24 mary Administered Medications: 08:04 Drug: Hydrocodone-Acetaminophen PO (7.5 mg-325 mg) 1 tabs Route: PO; rs5 08:20 Follow up: Response: No adverse reaction rs5 Disposition Summary: 12/11/22 07:59 Discharge Ordered Location: Home mary Problem: new mary Symptoms: have improved mary Condition: Stable mary Diagnosis - Pain in left elbow - Fracture mary - Fall on same level, unspecified mary - [facility] (current) use of anticoagulants mary - Displaced fracture (avulsion) of lateral epicondyle of left humerus, initial mary encounter for closed fracture Followup: mary - With: Private Physician - When: 2 - 3 days - Reason: Recheck today's complaints, Continuance of care, Re-evaluation by your physician Followup: mary - With: - When: 2 - 3 days - Reason: Recheck today's complaints, Re-evaluation by your physician Discharge Instructions: - Discharge Summary Sheet mary - Fall Prevention in the Home, Adult mary - Fall Prevention in the Home, Adult, [id number] mary - Distal Humerus Elbow Fracture mary Forms: - Medication Reconciliation Form mary - Thank You Letter mary - Antibiotic Education mary - Prescription Opioid Use mary - Patient Portal Instructions mary - Leadership Thank You Letter mary - Work release form aa5 Prescriptions: - acetaminophen-codeine 300-30 mg Oral tablet - take 1 tablet by ORAL route every 4-6 hours; 20 tablet; Refills: 0, Product [facility] Selection Permitted Signatures: Dispatcher [employer] Sachin Darby MD MD cha Baxter, Heather, RN RN Gil Figueredo RN RN rs5
--- NOTE | 2022-12-11 07:59 | ER ---
Nurse's Notes [facility] Name: Dennis Wayne Age: 67 yrs Sex: Male : 1955 Arrival Date: 12/11/2022 Time: 07:12 Bed 7 Private MD: Diagnosis: Pain in left elbow-Fracture;Fall on same level, unspecified;nursing home (current) use of anticoagulants;Displaced fracture (avulsion) of lateral epicondyle of left humerus, initial encounter for closed fracture Presentation: 12/11 07:28 Chief complaint: Left arm pain and swelling after mechanical fall from standing onto outstretched hands 1 week ago. Coronavirus screen: At this time, the client does not indicate any symptoms associated with coronavirus-19. Ebola Screen: No symptoms or risks identified at this time. Initial Sepsis Screen: Does the patient meet any 2 criteria? No. Patient's initial sepsis screen is negative. Does the patient have a suspected source of infection? No. Patient's initial sepsis screen is negative. Risk Assessment: Do you want to hurt yourself or someone else? Patient reports no desire to harm self or others. Onset of symptoms was December 04, 2022. 07:28 Method Of Arrival: Ambulatory hb 07:28 Acuity: ASHLIE 4 hb Historical: - Allergies: 07:29 No Known Allergies; hb - Home Meds: 07:29 cholesterol med [Active]; Digoxin Oral [Active]; Metoprolol Tartrate Oral [Active]; hb Warfarin Oral [Active]; - PMHx: 07:29 Atrial fibrillation; Hypercholesterolemia; Hypertension; CHF; hb - PSHx: 07:29 Anal fistula repair; cardiac stent; Carotid endarterectomy; Cholecystectomy; hb - Immunization history:: Adult Immunizations up to date. - Social history:: Smoking status: Patient/guardian denies using tobacco, the patient reports quitting approximately 30 years ago. - Family history:: not pertinent. Screenin:22 [facility] ED Fall Risk Assessment (Adult) History of falling in the last 3 months, rs5 including since admission Yes- single mechanical fall (1 pt) Confusion or Disorientation No (0 pts) Intoxicated or Sedated No (0 pts) Impaired Gait No (0 pts) Mobility Assist Device Used No (0 pt) Altered Elimination No (0 pt) Score/Fall Risk Level 0 - 2 = Low Risk Oriented to surroundings, Maintained a safe environment. Abuse screen: Denies threats or abuse. Nutritional screening: No deficits noted. Tuberculosis screening: No symptoms or risk factors identified. Assessment: 07:22 General: Appears in no apparent distress. comfortable, Behavior is calm, cooperative. rs5 07:22 Pain: Complains of pain in left elbow Pain does not radiate. Pain currently is 8 out of rs5 10 on a pain scale. Quality of pain is described as aching. Neuro: Level of Consciousness is awake, alert, obeys commands, Oriented to person, place, time, situation. Cardiovascular: Rhythm is regular. Respiratory: Airway is patent Respiratory effort is even, unlabored, Respiratory pattern is regular, symmetrical. GI: Abdomen is round non-distended, Abd is soft and non tender X 4 quads. : No signs and/or symptoms were reported regarding the genitourinary system. EENT: No signs and/or symptoms were reported regarding the EENT system. Derm: Skin is dry, Skin is normal, Skin temperature is warm. Musculoskeletal: Range of motion: limited in left arm Swelling present in left elbow and left hand Reports pain in left arm since one week ago post fall. Pt reports "My left knee sort of gave out and I fell with my left arm extended". Pain is 8 out of 10 on a pain scale. 08:20 Reassessment: Patient is alert, oriented x 3, equal unlabored respirations, skin rs5 warm/dry/pink. Patient states feeling better. 08:20 Pain: Complains of pain in left arm Pain does not radiate. Pain currently is 3 out of rs5 10 on a pain scale. 08:24 Reassessment: To bedside to apply elbow splint. Pt tolerated procedure well. rs5 Vital Signs: 07:24 BP 144 / 96; Pulse 84; Resp 17; Temp 98(O); Pulse Ox 99% on R/A; rs5 07:28 BP 142 / 98; Pulse 85; Resp 16; Temp 98.1(O); Pulse Ox 100% on R/A; Weight 81.65 kg; hb Height 5 ft. 11 in. ; Pain 10/10; 07:28 Body Mass Index 25.10 (81.65 kg, 180.34 cm) hb 07:28 Pain Scale: Adult hb ED Course: 07:16 Patient arrived in ED. im 07:22 Sachin Tillman MD is Attending Physician. mary 07:22 Arm band placed on. rs5 07:22 Patient has correct armband on for positive identification. Bed in low position. Call rs5 light in reach. Side rails up X2. 07:29 Triage completed. hb 07:31 Gil Figueredo, RN is Primary Nurse. rs5 07:56 Du Chapman MD is Referral Physician. [facility] 07:57 Elbow Left 3 View XRAY In Process Unspecified. EDMS 08:30 No provider procedures requiring assistance completed. rs5 08:30 Patient did not have IV access during this emergency room visit. rs5 Administered Medications: 08:04 Drug: Hydrocodone-Acetaminophen PO (7.5 mg-325 mg) 1 tabs Route: PO; rs5 08:20 Follow up: Response: No adverse reaction rs5 Medication: 08:30 VIS not applicable for this client. rs5 Outcome: 07:59 Discharge ordered by . mary 08:30 Discharged to home ambulatory. rs5 08:30 Condition: stable rs5 08:30 Discharge instructions given to patient, Instructed on discharge instructions, follow up and referral plans. medication usage, Demonstrated understanding of instructions, follow-up care, medications, Prescriptions given X 1. 08:34 Patient left the ED. rs5 Signatures: Dispatcher [employer] EDFL Sachin Tillman MD MD cha Baxter, Heather, RN RN Gil Figueredo, RN RN rs5 Dona Lowe Corrections: (The following items were deleted from the chart) 07:31 07:28 Acuity: ASHLIE 3 hb hb 07:48 07:22 General: Appears in no apparent distress. comfortable, Behavior is calm, rs5 cooperative, rs5 07:48 07:22 Pain: rs5 rs5 07:49 07:30 Arm band placed on hb rs5
[2022-12-11] MEDS ORDERED: HYDROCODONE/APAP 7.5/325 MG TAB ONE (08:04)
[2022-12-11 08:41] VITALS: BP 142/98; TEMP 98.1; O2SAT 100
--- NOTE | 2022-12-11 08:58 | RAD REPORT ---
EXAM DESCRIPTION: RAD - Elbow Left 3 View - 12/11/2022 7:55 am CLINICAL HISTORY: Left elbow pain status post trauma FINDINGS: Oblique mildly displaced distal lateral humerus fracture which extends medially and distal ly to the intra-articular surface. No dislocation
== END 2022-12-11 08:34 | disposition home or self-care (01) ==
LOC: ER 07:12
PROC: 2W3BX1Z Immobilization of Left Upper Arm using Splint (ICD-10-PCS; principal; 2022-12-11)
DX: S42.432A Displaced fracture (avulsion) of lateral epicondyle of left humerus, initial encounter for closed fracture (principal); W18.30XA Fall on same level, unspecified, initial encounter; Z79.01 Long term (current) use of anticoagulants; Z95.818 Presence of other cardiac implants and grafts
CPT/HCPCS: 99283